=== PATIENT | female | born 1945 | race Caucasian/White ===

== ENCOUNTER 2022-04-23 14:19 | Inpatient (IN) ==
--- NOTE | 2022-04-23 15:50 | Emergency Department Note ---
History of Present Illness General Chief complaint: Fall Stated complaint: FALL/WOUND Time Seen by Provider: 04/23/22 15:32 Source: patient, EMS and RN notes reviewed History of Present Illness Provider complaint: Fall 77-year-old female presents emergency department with fall. Patient reports she has a history of MS and has recurrent falls when trying to transfer to the toilet. Patient states she fell today and became wedged between the toilet and her sink. Patient denies any pain. She denies any fevers. No chest pains or shortness of breath. Home Medications Medication Instructions Recorded Confirmed Type diazepam 5 mg tablet 5 mg PO DAILY 06/20/18 04/23/22 History Lactobacillus acidophilus 10 20,000 mmu cells PO DAILY 04/23/22 04/23/22 History billion cell capsule (Probiotic) diazepam 2 mg tablet 2 mg PO DAILY 04/23/22 04/23/22 History phenazopyridine 95 mg tablet 95 mg PO DIRECTED PRN 04/23/22 04/23/22 History OCCASIONALLY, WHEN NEEDED Allergies Allergy/AdvReac Type Severity Reaction Status Date / Time mushroom Allergy Severe Swelling Verified 04/23/22 17:41 of Lip/Tongue/Throat Sulfa (Sulfonamide Allergy Severe ALL OVER Verified 04/23/22 17:41 Antibiotics) BODY SWELLING naproxen Allergy Unknown Unknown Verified 04/23/22 17:41 Past Med/Surg History Medical History (Updated 04/23/22 @ 23:24 by Harjit Zepeda) HTN (hypertension) Multiple sclerosis Obesity Rotator cuff arthropathy of right shoulder Surgical History History of cataract surgery left cataract sx received 4mg versed and 100 fentanyl without apparent complications. History of tonsillectomy Family History Other Family history non-contributory Social History Smoking Status: Former smoker Second Hand Exposure: No; Hx Alcohol Use: Yes Alcohol type: beer Hx Substance Use: Yes Last Used Substance: Unknown Preferred Language: Khmer Communication Ability: Effective Visual Impairment: Partially Limited Performance Test Engineer Required: No Beliefs That Will Affect Care: None marital status: Current Living Situation: Spouse How many Children do You have: 2 Feels Safe at Home: Yes Assistive Devices: Wheelchair Review of Systems A total of 10 systems reviewed and were otherwise negative Physical Exam Vital Signs Vital Signs - 24 hr 04/23/22 14:59 04/23/22 14:59 04/23/22 16:00 Temperature 36.2 C L Temperature Source Oral Pulse Rate 78 Pulse Rate [Apical] 75 Pulse Rhythm Regular Pulse Rhythm [Apical] Regular Pulse Strength Normal Pulse Strength [Apical] Normal Respiratory Rate 17 15 Respiratory Effort / Characteristics Non-Labored Non-Labored Respiratory Depth Normal Normal Respiratory Pattern Regular Regular Blood Pressure 135/73 Blood Pressure [Right Arm] 135/73 Blood Pressure Mean 93 Blood Pressure Mean [Right Arm] 93 Blood Pressure Position Lying Blood Pressure Position [Right Arm] Lying Pulse Oximetry 95 95 Oxygen Delivery Method Room Air Room Air Room Air Sepsis Recent Fever Within 48 Hours No Sepsis New/Unexplained Change in Mental Status No Sepsis Action Taken by Nursing No Action Required 04/23/22 16:00 04/23/22 18:00 04/23/22 20:00 Temperature Temperature Source Pulse Rate Pulse Rate [Apical] 68 67 69 Pulse Rhythm Pulse Rhythm [Apical] Regular Regular Regular Pulse Strength Pulse Strength [Apical] Normal Normal Normal Respiratory Rate 18 18 18 Respiratory Effort / Characteristics Non-Labored Non-Labored Non-Labored Respiratory Depth Normal Normal Normal Respiratory Pattern Regular Regular Regular Blood Pressure Blood Pressure [Right Arm] 137/80 156/103 H 161/106 H Blood Pressure Mean Blood Pressure Mean [Right Arm] 99 120 124 Blood Pressure Position Blood Pressure Position [Right Arm] Lying Lying Lying Pulse Oximetry 97 96 97 Oxygen Delivery Method Room Air Room Air Room Air Sepsis Recent Fever Within 48 Hours Sepsis New/Unexplained Change in Mental Status Sepsis Action Taken by Nursing Physical Exam HENT: Exam performed. -Head: Normocephalic and atraumatic. -Right Ear: External ear normal. No mastoid tenderness. -Left Ear: External ear normal. No mastoid tenderness. -Mouth/Throat: The oropharynx is clear and moist. No trismus in the jaw. No dental abscesses or uvula swelling. No oropharyngeal exudate or tonsillar abscesses. EYES: Conjunctivae and EOM are normal. Pupils are equal, round, and reactive to light. Right eye exhibits no discharge. Left eye exhibits no discharge. No scleral icterus. NECK: Normal range of motion. Neck supple. No JVD present. No spinous process tenderness present. CV: Normal rate, regular rhythm, normal heart sounds and intact distal pulses. Palpable radial pulses bue. PULM/CHEST: Effort normal and breath sounds normal. No respiratory distress. No stridor. She has no wheezes. She has no rales. -Chest Wall: She exhibits no tenderness. ABD: The abdomen is soft. Pain on palpation of the left lower quadrant. MUSC: Lymphedema of the bilateral lower extremities. LYMPH: No cervical adenopathy. SKIN: Erythema and warmth over the right lower extremity. There is a large black necrotic appearing decubitus ulcer over the patient's sacrum Course Course 153: The patient was evaluated in room B3. A complete history and physical exam was performed Administered Medications Discontinued Medications Ioversol (Optiray 320 100ml) 95 ml IV ONCE ONE Stop: 04/23/22 17:03 Last Admin: 04/23/22 17:03 Dose: 95 ml Documented By: ILIA Medical Decision Making Laboratory Data Result diagrams: 04/23/22 16:11 04/23/22 16:00 Lab Results 04/23/22 04/23/22 04/23/22 Range/Units 16:00 16:00 16:00 WBC (4.8-10.8) K/ul RBC (3.93-5.22) M/uL Hgb (12.0-16.0) g/dl Hct (34.1-44.9) % MCV (80.0-100.0) fL MCH (25.0-34.0) pg MCHC (32.0-36.0) g/dL RDW Std Deviation (36.4-46.3) fL RDW Coeff of Gregor (11.5-14.5) % Plt Count (130-400) K/uL MPV (9.4-12.3) fL Immature Gran % (Auto) % Neut % (Auto) % Lymph % (Auto) % Mckenzie % (Auto) % Eos % (Auto) % Baso % (Auto) % Neut # (Auto) (1.4-6.5) K/uL Lymph # (Auto) (1.2-3.4) K/uL Mckenzie # (Auto) (0.24-0.82) K/uL Eos # (Auto) (0-0.50) K/uL Baso # (Auto) (0-0.2) K/uL Immature Gran # (Auto) (0.00-0.02) K/uL PT 11.0 (9.0-12.0) Seconds INR 1.0 (0.9-1.1) APTT 27.0 (21.0-31.0) Seconds PTT Ratio 1.0 Sodium 134 L (136-145) mmol/L Potassium 3.9 (3.5-5.1) mmol/L Chloride 97 L (98-107) mmol/L Carbon Dioxide 30 (21-32) mmol/L Anion Gap 7 (3-11) BUN 14 (6-23) mg/dl Creatinine 0.62 (0.6-1.2) mg/dl Est Cr Clr Drug Dosing 81.1 ml/min Est GFR ( Amer) 99.4 ml/min Est GFR (Non-Af Amer) 85.8 ml/min BUN/Creatinine Ratio 22.6 H (10-20) Glucose 97 (70-99(Fasting)) mg/dl Lactate (0.4-2.0) mmol/L Calcium 9.2 (8.5-10.1) mg/dl Magnesium 1.6 L (1.7-2.4) mg/dl Total Bilirubin 1.1 H (0.2-1.0) mg/dl AST 26 (13-39) U/L ALT 15 (7-52) U/L Alkaline Phosphatase 123 H (34-104) U/L Total Protein 6.2 (6.0-8.3) gm/dl Albumin 3.0 L (3.4-5.0) gm/dl Globulin 3.2 (2.5-4.0) gm/dl Albumin/Globulin Ratio 0.9 (0.9-2) Prealbumin 5.7 L (20-40) mg/dl Procalcitonin 0.09 (0-0.5) ng/ml SARS-CoV-2, RNA, NAAT (NEGATIVE) 04/23/22 04/23/22 04/23/22 Range/Units 16:11 16:11 17:15 WBC 12.99 H (4.8-10.8) K/ul RBC 3.96 (3.93-5.22) M/uL Hgb 12.4 (12.0-16.0) g/dl Hct 38.4 (34.1-44.9) % MCV 97.0 (80.0-100.0) fL MCH 31.3 (25.0-34.0) pg MCHC 32.3 (32.0-36.0) g/dL RDW Std Deviation 51.2 H (36.4-46.3) fL RDW Coeff of Gregor 14.3 (11.5-14.5) % Plt Count 337 (130-400) K/uL MPV 8.1 L (9.4-12.3) fL Immature Gran % (Auto) 0.4 % Neut % (Auto) 85.9 % Lymph % (Auto) 4.8 % Mckenzie % (Auto) 8.5 % Eos % (Auto) 0.2 % Baso % (Auto) 0.2 % Neut # (Auto) 11.17 H (1.4-6.5) K/uL Lymph # (Auto) 0.62 L (1.2-3.4) K/uL Mckenzie # (Auto) 1.10 H (0.24-0.82) K/uL Eos # (Auto) 0.03 (0-0.50) K/uL Baso # (Auto) 0.02 (0-0.2) K/uL Immature Gran # (Auto) 0.05 H (0.00-0.02) K/uL PT (9.0-12.0) Seconds INR (0.9-1.1) APTT (21.0-31.0) Seconds PTT Ratio Sodium (136-145) mmol/L Potassium (3.5-5.1) mmol/L Chloride (98-107) mmol/L Carbon Dioxide (21-32) mmol/L Anion Gap (3-11) BUN (6-23) mg/dl Creatinine (0.6-1.2) mg/dl Est Cr Clr Drug Dosing ml/min Est GFR ( Amer) ml/min Est GFR (Non-Af Amer) ml/min BUN/Creatinine Ratio (10-20) Glucose (70-99(Fasting)) mg/dl Lactate 0.9 (0.4-2.0) mmol/L Calcium (8.5-10.1) mg/dl Magnesium (1.7-2.4) mg/dl Total Bilirubin (0.2-1.0) mg/dl AST (13-39) U/L ALT (7-52) U/L Alkaline Phosphatase (34-104) U/L Total Protein (6.0-8.3) gm/dl Albumin (3.4-5.0) gm/dl Globulin (2.5-4.0) gm/dl Albumin/Globulin Ratio (0.9-2) Prealbumin (20-40) mg/dl Procalcitonin (0-0.5) ng/ml SARS-CoV-2, RNA, NAAT NEGATIVE (NEGATIVE) Imaging Data Radiologist's Impression: Abdomen/Pelvis CT 04/23/22 15:[address] WITH IV CONTRAST CT DOSE: HISTORY: recurrent falls;large black necrotic decub ulcer sacrum TECHNIQUE: Multiaxial CT images of the abdomen and pelvis were performed following the use of intravenous contrast. A dose lowering technique was utilized adhering to the principles of ALARA. COMPARISON STUDY: None. FINDINGS: The heart is mildly enlarged. There is a trace left pleural effusion. Left basilar linear densities favor subsegmental atelectasis. A 9 mm nodular density abutting the mediastinal border with at the right middle lobe also favors atelectasis or scarring. No pneumoperitoneum. No pneumatosis. Degenerative changes within the bilateral hips. No fractures within the visualized osseous structures. No destructive/erosive changes within the sacrum to suggest an osteomyelitis. Tiny fat-containing umbilical hernia. Mild body wall edema. Subcutaneous fat stranding, skin thickening, and a few small foci of subcutaneous gas within the left posterior gluteal region. No loculated fluid collections to suggest an abscess. This favors a cellulitis. The punctate foci of subcutaneous gas raise the possibility of a gas-forming organism. The liver, gallbladder, pancreas, spleen, and adrenal glands are within normal limits. There are few punctate calcified granulomas within the liver and spleen. Subcentimeter retroperitoneal lymph nodes do not meet CT criteria for pathologic involvement. No hydronephrosis. Normal caliber abdominal aorta. Moderate bladder wall thickening. Trace pelvic free fluid. There is a 5.8 cm left ovarian/adnexal cyst. There are suggest a meningeal device. There is a 4.3 x 1.8 cm calcified density within the vagina. This could represent an old calcified tampon or foreign body. Small calcified uterine fibroids are noted. Colonic diverticulosis. No evidence for acute diverticulitis. Normal appendix. A few prominent gas-filled loops of small bowel within the lower abdomen. There appears be a short segment of thickened loop of small bowel within the left l ower quadrant best seen on image 354. Distal to this the small bowel loops are decompressed. Therefore, this could be a transition point for a partial small bowel obstruction. IMPRESSION: 1. Subcutaneous fat stranding, skin thickening, and a few small foci of subcutaneous gas within the left posterior gluteal region. No loculated fluid collections to suggest an abscess. This favors a cellulitis. The punctate foci of subcutaneous gas raise the possibility of a gas-forming organism. 2. There is a short segment of thickened small bowel within the left lower quadrant as described above consistent with a nonspecific enteritis. This favors an infectious or inflammatory process. Proximal to this the small bowel is borderline distended and filled with gas and fluid. Therefore, likely represents a transition point for a partial small bowel obstruction 3. There appears to be an intrauterine device. There is also a 4.3 x 1.8 cm calcified density within the vagina. This could represent an old calcified tampon or foreign body. Pelvic examination recommended for removal of these structures. 4. Trace pelvic free fluid. 5. No destructive changes to suggest an osteomyelitis. 6. Trace left pleural effusions. 7. A 5.8 cm left ovarian cyst. This is considered pathologic in a postmenopausal female. Gynecologic consultation recommended. ACT 112: Negative or not required by law. Electronically signed by: Leobardo Estevez M.D. 04/23/2022 5:38 PM Chest X-Ray 04/23/22 15:43 XR chest 1V portable HISTORY: SEPSIS COMPARISON: Chest 09/16/2018. FINDINGS: The cardiac silhouette remains mildly enlarged. There is chronic blunting of the left lateral costophrenic sulcus. No pneumothorax. No pleural effusions. The dominant focal lung consolidations to suggest pneumonia. No evidence for pulmonary edema. Calcified left hilar/AP window lymph nodes are again noted. IMPRESSION: No significant change compared to the prior study. No acute process. Stable blunting of the left lateral costophrenic sulcus. ACT 112: Negative or not required by law. Electronically signed by: Leobardo Estevez M.D. 04/23/2022 4:[address] 04/23/22 15:[address] DOSE: 1905.12 mGy.cm HISTORY: recurrent falls TECHNIQUE: Multiaxial CT images of the cervical spine were performed and reformatted in the sagittal and coronal plane without the use of contrast. A dose lowering technique was utilized adhering to the principles of ALARA. COMPARISON: None. FINDINGS: No fractures. There is 2 mm of anterolisthesis of C4 on C5. This is likely due to long-standing degenerative change. The bilateral C2-C4 facets are fused. Severe disc space narrowing from C4 through C7. Prevertebral soft tissues and the C1-C2 interval are intact. No pneumothorax. IMPRESSION: No fractures within the cervical spine. ACT 112: Negative or not required by law. Electronically signed by: Leobardo Estevez M.D. 04/23/2022 5:[address] 04/23/22 15:[address] DOSE: HISTORY: recurrent falls TECHNIQUE: Multiaxial CT images of the head were performed without the use of intravenous contrast. Automated exposure control was utilized for this study. A dose lowering technique was utilized adhering to the principles of ALARA. Comparison: None. Findings: The paranasal sinuses and mastoid air cells are clear. The calvarium and skull base are intact. There is no mass, hematoma, midline shift, acute infarct. White matter hypodensity is nonspecific but suggestive of microvascular ischemic change. The ventricles and sulci demonstrate mild age-related involutional changes. Impression: No acute intracranial abnormality. Atrophy and microvascular ischemic changes. ACT 112: Negative or not required by law. Electronically signed by: Leobardo Estevez M.D. 04/23/2022 5:19 PM [facility] Narrative Cardiac monitoring: An order was placed for continuous cardiac monitoring. The monitor shows a rate of 70 with sinus rhythm Vital signs stable. Labs show mild leukocytosis of 12.9. CT imaging shows that the patient has subcutaneous fat stranding and a few small foci of subcutaneous gas within the left posterior gluteal region with no loculated fluid collections to suggest an abscess fever and cellulitis. Punctate foci of gas raise the possibility of gas-forming organism. There is a short segment of thickened bowel in the left lower quadrant proximal to this there is a transition point representing small bowel obstruction. Patient's lactic acid is within normal limits. It is thought that the patient's sacral wound has been there for quite some time. Discussed the case with general surgery Dr. Reina who agrees to be on consult and admit to medicine. CT imaging also makes note of a 4.3 x 1.8 cm density in the vagina which that could be a old calcified tampon. This is not thought to be a tampon as patient states she does not use them and the patient had a purewick catheter placed in the emergency department by nursing prior to CT scan. Case management has informed me that the office of aging has become involved with the patient's care and they believe that the patient's care is regretfully a combination of self-neglect and the patient's not being able to care for her. [facility] Lisa notified. Impression & Plan SBO (small bowel obstruction), Pressure ulcer, sacrum, Ovarian cyst, Multiple sclerosis Discharge Plan Visit Data Chief Complaint: Fall Stated Complaint: FALL/WOUND ED Provider: Harjit Zepeda Discharge Problem: SBO (small bowel obstruction), Pressure ulcer, sacrum, Ovarian cyst, Multiple sclerosis Patient Disposition: Admitted As Inpatient Discharge Instructions Interventions: ED Discharge Assessment Last Done: 04/23/22 22:24
--- NOTE | 2022-04-23 16:16 | XRay Report ---
XR chest 1V portable HISTORY: SEPSIS COMPARISON: Chest 09/16/2018. FINDINGS: The cardiac silhouette remains mildly enlarged. There is chronic blunting of the left later al costophrenic sulcus. No pneumothorax. No pleural effusions. The dominant focal lung consolidations to suggest pneumonia. No evidence for pulmonary edema. Calcified left hilar/AP window lymph nodes ar e again noted. IMPRESSION: No significant change compared to the prior study. No acute process. Stable blunting of the left late ral costophrenic sulcus. ACT 112: Negative or not required by law. Electronically signed by: Leobardo Estevez M.D. 04/23/2022 4:14 PM
[2022-04-23 16:21] LABS: Basophils # (auto) 0.02 K/uL (0-0.2); Basophils % (auto) 0.2 %; Eosinophils # (auto) 0.03 K/uL (0-0.50); Eosinophils % (auto) 0.2 %; Hematocrit (blood only) 38.4 % (34.1-44.9); Hemoglobin 12.4 g/dl (12.0-16.0); Immature Granulocytes # (auto) 0.05 K/uL (0.00-0.02); Immature Granulocytes % (auto) 0.4 %; Lymphocytes # (auto) 0.62 K/uL (1.2-3.4); Lymphocytes % (auto) 4.8 %; Mean Corpuscular Hemoglobin 31.3 pg (25.0-34.0); Mean Corpuscular Hgb Conc 32.3 g/dL (32.0-36.0); Mean Platelet Volume 8.1 fL (9.4-12.3); Monocytes % (auto) 8.5 %; Neutrophils # (auto) 11.17 K/uL (1.4-6.5); Neutrophils % (auto) 85.9 %; Platelet Count 337 K/uL (130-400); RDW Coefficient of Variation 14.3 % (11.5-14.5); RDW Standard Deviation 51.2 fL (36.4-46.3); Red Blood Count 3.96 M/uL (3.93-5.22); White Blood Count 12.99 K/ul (4.8-10.8)
[2022-04-23 16:32] LABS: Albumin Globulin Ratio 0.9 (0.9-2); BUN Creatinine Ratio 22.6 (10-20); Bilirubin,Total 1.1 mg/dl (0.2-1.0); Calcium 9.2 mg/dl (8.5-10.1); Creatinine Clr Calc Pharmacy 81.1 ml/min; Est GFR (African American) 99.4 ml/min; Est GFR (Non-African American) 85.8 ml/min; Globulin 3.2 gm/dl (2.5-4.0); Magnesium 1.6 mg/dl (1.7-2.4); Potassium 3.9 mmol/L (3.5-5.1); Total Protein 6.2 gm/dl (6.0-8.3)
[2022-04-23] MEDS ORDERED: OPTIRAY 320 100ml IV ONE (17:02)
--- NOTE | 2022-04-23 17:22 | CT Scan Report ---
HEAD CT NONCONTRAST CT DOSE: HISTORY: recurrent falls TECHNIQUE: Multiaxial CT images of the head were performed without the use of intravenous contrast. A utomated exposure control was utilized for this study. A dose lowering technique was utilized adheri ng to the principles of ALARA. Comparison: None. Findings: The paranasal sinuses and mastoid air cells are clear. The calvarium and skull base are int act. There is no mass, hematoma, midline shift, acute infarct. White matter hypodensity is nonspecifi c but suggestive of microvascular ischemic change. The ventricles and sulci demonstrate mild age-rela belle involutional changes. Impression: No acute intracranial abnormality. Atrophy and microvascular ischemic changes. ACT 112: Negative or not required by law. Electronically signed by: Leobardo Estevez M.D. 04/23/2022 5:19 PM
--- NOTE | 2022-04-23 17:27 | CT Scan Report ---
CERVICAL SPINE CT CT DOSE: 1905.12 mGy.cm HISTORY: recurrent falls TECHNIQUE: Multiaxial CT images of the cervical spine were performed and reformatted in the sagittal and coronal plane without the use of contrast. A dose lowering technique was utilized adhering to th e principles of ALARA. COMPARISON: None. FINDINGS: No fractures. There is 2 mm of anterolisthesis of C4 on C5. This is likely due to long-jones ding degenerative change. The bilateral C2-C4 facets are fused. Severe disc space narrowing from C4 t hrough C7. Prevertebral soft tissues and the C1-C2 interval are intact. No pneumothorax. IMPRESSION: No fractures within the cervical spine. ACT 112: Negative or not required by law. Electronically signed by: Leobardo Estevez M.D. 04/23/2022 5:25 PM
--- NOTE | 2022-04-23 17:40 | CT Scan Report ---
ABDOMEN AND PELVIS CT WITH IV CONTRAST CT DOSE: HISTORY: recurrent falls;large black necrotic decub ulcer sacrum TECHNIQUE: Multiaxial CT images of the abdomen and pelvis were performed following the use of intrave nous contrast. A dose lowering technique was utilized adhering to the principles of ALARA. COMPARISON STUDY: None. FINDINGS: The heart is mildly enlarged. There is a trace left pleural effusion. Left basilar linear d ensities favor subsegmental atelectasis. A 9 mm nodular density abutting the mediastinal border with at the right middle lobe also favors atelectasis or scarring. No pneumoperitoneum. No pneumatosis. De generative changes within the bilateral hips. No fractures within the visualized osseous structures. No destructive/erosive changes within the sacrum to suggest an osteomyelitis. Tiny fat-containing umb ilical hernia. Mild body wall edema. Subcutaneous fat stranding, skin thickening, and a few small foc i of subcutaneous gas within the left posterior gluteal region. No loculated fluid collections to sug gest an abscess. This favors a cellulitis. The punctate foci of subcutaneous gas raise the possibilit y of a gas-forming organism. The liver, gallbladder, pancreas, spleen, and adrenal glands are within normal limits. There are few punctate calcified granulomas within the liver and spleen. Subcentimeter retroperitoneal lymph nodes do not meet CT criteria for pathologic involvement. No hydronephrosis. N ormal caliber abdominal aorta. Moderate bladder wall thickening. Trace pelvic free fluid. There is a 5.8 cm left ovarian/adnexal cyst. There are suggest a meningeal device. There is a 4.3 x 1.8 cm calci fied density within the vagina. This could represent an old calcified tampon or foreign body. Small c alcified uterine fibroids are noted. Colonic diverticulosis. No evidence for acute diverticulitis. No rmal appendix. A few prominent gas-filled loops of small bowel within the lower abdomen. There appear s be a short segment of thickened loop of small bowel within the left lower quadrant best seen on jaja ge [id number]. Distal to this the small bowel loops are decompressed. Therefore, this could be a transition point for a partial small bowel obstruction. IMPRESSION: 1. Subcutaneous fat stranding, skin thickening, and a few small foci of subcutaneous gas within the l eft posterior gluteal region. No loculated fluid collections to suggest an abscess. This favors a vanda lulitis. The punctate foci of subcutaneous gas raise the possibility of a gas-forming organism. 2. There is a short segment of thickened small bowel within the left lower quadrant as described abov e consistent with a nonspecific enteritis. This favors an infectious or inflammatory process. Proxima l to this the small bowel is borderline distended and filled with gas and fluid. Therefore, likely re presents a transition point for a partial small bowel obstruction 3. There appears to be an intrauterine device. There is also a 4.3 x 1.8 cm calcified density within the vagina. This could represent an old calcified tampon or foreign body. Pelvic examination recommen ded for removal of these structures. 4. Trace pelvic free fluid. 5. No destructive changes to suggest an osteomyelitis. 6. Trace left pleural effusions. 7. A 5.8 cm left ovarian cyst. This is considered pathologic in a postmenopausal female. Gynecologic consultation recommended. ACT 112: Negative or not required by law. Electronically signed by: Leobardo Estevez M.D. 04/23/2022 5:38 PM
--- NOTE | 2022-04-23 20:29 | History & Physical Report ---
Date of Service April 23, 2022 Assessment & Plan (1) Decubitus ulcer of sacral area: Plan: - Large eschar seen over sacral area. WBC 13, lactate within normal limits, with hemodynamic stability. Patient with pain reported over the past week, prior neurology appointment. She is immobile due to MS, bed and wheelchair bound - CT a/p: Subcutaneous fat stranding, skin thickening, and a few small foci of subcutaneous gas within the left posterior gluteal region. No loculated fluid collections to suggest an abscess. This favors a cellulitis. The punctate foci of subcutaneous gas raise the possibility of a gas-forming organism. - Empirically placed on Zosyn and vancomycin. - General surgery and plastic surgery consult, appreciate their recommendations. - Office of aging contacted. - Blood cultures ordered, pending. - Wound care consulted. - Specialty bed ordered. (2) SBO (small bowel obstruction): Plan: - Partial, with evidence of enterocolitis. - N.p.o. with IVF for now, surgery consulted as above. - Patient with vomiting 2 days ago, however without nausea or vomiting since. No need for NGT currently. (3) Multiple sclerosis: Plan: - Chronic, no acute needs. - Diazepam 7 mg daily for spasms. - Wheelchair-bound at baseline. (4) Hypomagnesemia: Plan: - 1.6, replete with 2 g and recheck with a.m. labs. (5) Tinea pedis: Plan: - Ketoconazole ordered to be applied to b/l feet. - Monitor LFTs. (6) HTN (hypertension): Plan: - Documented history of, but on no home medications. - She is hypertensive here, SBP [id number]. She remains hypertensive, may benefit from scheduled medication. (7) Ovarian cyst: Plan: - 5.8 cm left ovarian cyst noted on CT of her abdomen pelvis, considered pathologic given her age. Per patient, this is a new finding. - Recommend outpatient follow-up with director pharmaceutical for further evaluation. Plan - Admitted to med/tele - SCDs and Lovenox for VTE ppx. - Full Code. History of Present Illness Chief Complaint: Mechanical fall during transfer to wheelchair this evening Primary Care Provider: Alf Velázquez MD Sia Grissom is a 77-year-old female with a past medical history significant for MS who presents today from home after a fall. Patient is wheelchair-bound at baseline, she was transferring to her commode today when she fell and became wedged between her bed and sink. Her called EMS for transportation to the ED for evaluation. Here, she is without any complaints or pain, however on initial exam she was found to have a deep wound to her left buttocks. She had pain on her buttocks for the past week, but denies noticing any open wound. She is also noted to have a partial SBO. Patient states she has been feeling perfectly well at home, however at bedside does report that she had 2 days of frequent vomiting on empty stomach that has now subsided. Otherwise, has been afebrile, no chest pain, shortness of breath, cough, abdominal pain, nausea, diarrhea. Patient states she typically does not move her bowels very often, last BM 4-5 days ago, which she says is normal for her. In ED, she presented hypertensive 161/26, otherwise vital signs within normal limits, SpO2 > 95% on room air. Labs significant for WBC 12.99, magnesium 1.6, T bili 1.1. CT A/P showed fat stranding and skin thickening with few small subcutaneous gas within the left posterior as well without evidence of osteomyelitis. There is also a short segment of thickened small bowel in the left LLQ consistent with nonspecific enteritis with borderline small bowel distention possibly representing a transition point for partial SBO. Incidental 5.8 cm left ovarian cyst was visualized. CT A/P notes a calcified density within the vagina possibly calcified tampon or foreign body, however its been confirmed this is being mistaken for a purewhick Catheter placed in ED. Head and C-spine CT performed due to fall, without evidence of acute process, fracture, subluxation. CXR showed no acute process, stable blunting of the left lateral costophrenic sulcus. Allergies Allergy/AdvReac Type Severity Reaction Status Date / Time mushroom Allergy Severe Swelling Verified 04/23/22 17:41 of Lip/Tongue/Throat Sulfa (Sulfonamide Allergy Severe ALL OVER Verified 04/23/22 17:41 Antibiotics) BODY SWELLING naproxen Allergy Unknown Unknown Verified 04/23/22 17:41 Home Medications Medication Instructions Recorded Confirmed Type diazepam 5 mg tablet 5 mg PO DAILY 06/20/18 04/23/22 History Lactobacillus acidophilus 10 20,000 mmu cells PO DAILY 04/23/22 04/23/22 History billion cell capsule (Probiotic) diazepam 2 mg tablet 2 mg PO DAILY 04/23/22 04/23/22 History phenazopyridine 95 mg tablet 95 mg PO DIRECTED PRN 04/23/22 04/23/22 History OCCASIONALLY, WHEN NEEDED Past Med/Surg History Medical History (Updated 04/23/22 @ 23:24 by Harjit Zepeda) HTN (hypertension) Multiple sclerosis Obesity Rotator cuff arthropathy of right shoulder Surgical History History of cataract surgery left cataract sx received 4mg versed and 100 fentanyl without apparent complications. History of tonsillectomy Family History Other Family history non-contributory Social History Smoking Status: Former smoker Second Hand Exposure: No; Hx Alcohol Use: Yes Alcohol type: beer Hx Substance Use: No Preferred Language: Bulgarian Communication Ability: Effective Visual Impairment: Partially Limited Medical Records Coder Required: No Beliefs That Will Affect Care: None marital status: Current Living Situation: Spouse How many Children do You have: 2 Other Information That Helps Us Care for You: No Feels Safe at Home: Yes Safety Concerns: Feels Safe At This Time Assistive Devices: Hospital Bed and Scooter/Electric Scooter Review of Systems Review of Systems: Constitutional: No fever/chills, weakness, fatigue, myalgias, anorexia, night sweats Eyes: No diplopia, no worsening or blurred vision ENT: normal hearing, no trouble swallowing Respiratory: No cough, sputum, dyspnea at rest or on exertion Cardiovascular: No chest pain, tightness or palpitations Abdomen: No pain, nausea, vomiting, diarrhea or constipation : Denies dysuria, hematuria, increased urgency/frequency, urinary retention Musculoskeletal: No joint pain, calf pain, swelling Neurologic: No weakness, numbness/tingling, or balance problems Psychiatric: No anxiety or depression Skin: No rash or itch Physical Exam Physical Exam: General: awake, alert, no apparent distress Head: Normocephalic, atraumatic ENT: PERRL, EOMI, no pharyngeal exudate, mucous membranes moist Chest: Clear to auscultation, on room air, no adventitious breath sounds Cardiac: Regular rate and rhythm, no murmur, no JVD, normal peripheral pulses, good capillary refill Abdominal: NABS x 4 quadrants, soft, nontender to palpation, no rebound, guarding or tenderness Extremities: Normal inspection, no peripheral edema or erythema, calfs nontender to palpation Psych: Normal mood and affect Neuro: AAO x 3, strength intact bilaterally and rated 5/5, no motor deficits, speech is clear, no peripheral sensory deficits Skin: Large, black necrotic appearing decubitus ulcer on patient's sacrum, as well as lower extremity erythema with dressings in place. Results & Data Results & Data ([facility]) Vital Signs (Past 12 Hours) Vital Signs Temp Pulse Pulse Resp BP BP Pulse Ox 04/23/22 20:00 69 18 161/106 H 97 04/23/22 18:00 67 18 156/103 H 96 04/23/22 16:00 68 18 137/80 97 04/23/22 16:00 04/23/22 14:59 75 15 135/73 95 04/23/22 14:59 36.2 C L 78 17 135/73 95 O2 Del Method 04/23/22 20:00 Room Air 04/23/22 18:00 Room Air 04/23/22 16:00 Room Air 04/23/22 16:00 Room Air 04/23/22 14:59 Room Air 04/23/22 14:59 Room Air Laboratory Results Abnormal lab results 04/23/22 04/23/22 Range/Units 16:00 16:11 WBC 12.99 H (4.8-10.8) K/ul RDW Std Deviation 51.2 H (36.4-46.3) fL MPV 8.1 L (9.4-12.3) fL Neut # (Auto) 11.17 H (1.4-6.5) K/uL Lymph # (Auto) 0.62 L (1.2-3.4) K/uL [place] # (Auto) 1.10 H (0.24-0.82) K/uL Immature Gran # (Auto) 0.05 H (0.00-0.02) K/uL Sodium 134 L (136-145) mmol/L Chloride 97 L (98-107) mmol/L BUN/Creatinine Ratio 22.6 H (10-20) Magnesium 1.6 L (1.7-2.4) mg/dl Total Bilirubin 1.1 H (0.2-1.0) mg/dl Alkaline Phosphatase 123 H (34-104) U/L Albumin 3.0 L (3.4-5.0) gm/dl Diagnostic Findings Abdomen/Pelvis CT 04/23/22 15:[address] WITH IV CONTRAST CT DOSE: HISTORY: recurrent falls;large black necrotic decub ulcer sacrum TECHNIQUE: Multiaxial CT images of the abdomen and pelvis were performed following the use of intravenous contrast. A dose lowering technique was utilized adhering to the principles of ALARA. COMPARISON STUDY: None. FINDINGS: The heart is mildly enlarged. There is a trace left pleural effusion. Left basilar linear densities favor subsegmental atelectasis. A 9 mm nodular density abutting the mediastinal border with at the right middle lobe also favors atelectasis or scarring. No pneumoperitoneum. No pneumatosis. Degenerative changes within the bilateral hips. No fractures within the visualized osseous structures. No destructive/erosive changes within the sacrum to suggest an osteomyelitis. Tiny fat-containing umbilical hernia. Mild body wall edema. Subcutaneous fat stranding, skin thickening, and a few small foci of subcutaneous gas within the left posterior gluteal region. No loculated fluid collections to suggest an abscess. This favors a cellulitis. The punctate foci of subcutaneous gas raise the possibility of a gas-forming organism. The liver, gallbladder, pancreas, spleen, and adrenal glands are within normal limits. There are few punctate calcified granulomas within the liver and spleen. Subcentimeter retroperitoneal lymph nodes do not meet CT criteria for pathologic involvement. No hydronephrosis. Normal caliber abdominal aorta. Moderate bladder wall thickening. Trace pelvic free fluid. There is a 5.8 cm left ovarian/adnexal cyst. There are suggest a meningeal device. There is a 4.3 x 1.8 cm calcified density within the vagina. This could represent an old calcified tampon or foreign body. Small calcified uterine fibroids are noted. Colonic diverticulosis. No evidence for acute diverticulitis. Normal appendix. A few prominent gas-filled loops of small bowel within the lower abdomen. There appears be a short segment of thickened loop of small bowel within the left lower quadrant best seen on image 354. Distal to this the small bowel loops are decompressed. Therefore, this could be a transition point for a partial small bowel obstruction. IMPRESSION: 1. Subcutaneous fat stranding, skin thickening, and a few small foci of subcutaneous gas within the left posterior gluteal region. No loculated fluid collections to suggest an abscess. This favors a cellulitis. The punctate foci of subcutaneous gas raise the possibility of a gas-forming organism. 2. There is a short segment of thickened small bowel within the left lower quadrant as described above consistent with a nonspecific enteritis. This favors an infectious or inflammatory process. Proximal to this the small bowel is borderline distended and filled with gas and fluid. Therefore, likely represents a transition point for a partial small bowel obstruction 3. There appears to be an intrauterine device. There is also a 4.3 x 1.8 cm calcified density within the vagina. This could represent an old calcified tampon or foreign body. Pelvic examination recommended for removal of these structures. 4. Trace pelvic free fluid. 5. No destructive changes to suggest an osteomyelitis. 6. Trace left pleural effusions. 7. A 5.8 cm left ovarian cyst. This is considered pathologic in a postmenopausal female. Gynecologic consultation recommended. ACT 112: Negative or not required by law. Electronically signed by: Leobardo Estevez M.D. 04/23/2022 5:38 PM Chest X-Ray 04/23/22 15:43 XR chest 1V portable HISTORY: SEPSIS COMPARISON: Chest 09/16/2018. FINDINGS: The cardiac silhouette remains mildly enlarged. There is chronic blunting of the left lateral costophrenic sulcus. No pneumothorax. No pleural effusions. The dominant focal lung consolidations to suggest pneumonia. No evidence for pulmonary edema. Calcified left hilar/AP window lymph nodes are again noted. IMPRESSION: No significant change compared to the prior study. No acute process. Stable blunting of the left lateral costophrenic sulcus. ACT 112: Negative or not required by law. Electronically signed by: Leobardo Estevez M.D. 04/23/2022 4:[address] 04/23/22 15:[address] DOSE: 1905.12 mGy.cm HISTORY: recurrent falls TECHNIQUE: Multiaxial CT images of the cervical spine were performed and reformatted in the sagittal and coronal plane without the use of contrast. A dose lowering technique was utilized adhering to the principles of ALARA. COMPARISON: None. FINDINGS: No fractures. There is 2 mm of anterolisthesis of C4 on C5. This is likely due to long-standing degenerative change. The bilateral C2-C4 facets are fused. Severe disc space narrowing from C4 through C7. Prevertebral soft tissues and the C1-C2 interval are intact. No pneumothorax. IMPRESSION: No fractures within the cervical spine. ACT 112: Negative or not required by law. Electronically signed by: Leobardo Estevez M.D. 04/23/2022 5:[address] 04/23/22 15:[address] DOSE: HISTORY: recurrent falls TECHNIQUE: Multiaxial CT images of the head were performed without the use of intravenous contrast. Automated exposure control was utilized for this study. A dose lowering technique was utilized adhering to the principles of ALARA. Comparison: None. Findings: The paranasal sinuses and mastoid air cells are clear. The calvarium and skull base are intact. There is no mass, hematoma, midline shift, acute infarct. White matter hypodensity is nonspecific but suggestive of microvascular ischemic change. The ventricles and sulci demonstrate mild age-related involutional changes. Impression: No acute intracranial abnormality. Atrophy and microvascular ischemic changes. ACT 112: Negative or not required by law. Electronically signed by: Leobardo Estevez M.D. 04/23/2022 5:19 PM ECG Additional Comments: Sinus rhythm with occasional Premature ventricular complexes Nonspecific ST and T wave abnormality Abnormal ECG When compared with ECG of 16-SEP-2018 19:13, Pr emature ventricular complexes are now Present QT has lengthened Code Status & VTE Plan Code Status Full Code. Supervising Physician Co-Signing Physician Notes Attending addendum: I have physically seen this patient, have supervised the EMELYN's activities, and agree with the H&P unless as otherwise noted. Assessment and Plan: Decubitus ulcer over buttock area- Gas within the left posterior gluteal region noted on CT Large area of eschar Placed. Clinic vancomycin IV and Zosyn IV Consult Dr. Yeinfer Lan, plastic reconstructive surgery Office of aging following patient Follow blood cultures, wound cultures and sensitivities Consult wound care for local care [place] bed Small bowel obstruction- N.p.o. Antibiotics as noted above IV fluids If not able to eat over the next 2 days, and may require some peripheral nutrition Multiple sclerosis- Continue diazepam p.o. Ativan IV as needed for spasms Hypomagnesemia- 1.6 upon admission replace IV and recheck laboratories in a.m. Remaining orders and notations as noted PG Care Time/CCT Total # of Minutes Spent Total Time Spent with Patient: Total time spent is greater than 50% in coordination of care (as documented) at patient's floor/unit and/or counseling patient: Coding Level of Care Code 27227 Initial Inpt Care Lvl 3 Diagnoses Decubitus ulcer of sacral area L89.159 SBO (small bowel obstruction) K56.609 Multiple sclerosis G35 Hypomagnesemia E83.42 Tinea pedis B35.3 HTN (hypertension) I10 Ovarian cyst N83.209
[2022-04-23] MEDS ORDERED: VANCOMYCIN CONSULT ACTIVE PRN ×2 (20:50→22:41)
[2022-04-23] MEDS ORDERED: PIPERACILLIN/TAZOBACTAM 4.5 GM in DEXTROSE 5% 100 ML IV ONE (21:00)
[2022-04-23] MEDS ORDERED: VANCOMYCIN HCL 1,750 MG in SODIUM CHLORIDE 0.9% 500 ML IV ONE (21:15)
[2022-04-23 21:30] LABS: Prealbumin 5.7 mg/dl (20-40)
[2022-04-23] MEDS ORDERED: PIPERACILLIN/TAZOBACTAM 3.375 GM in DEXTROSE 5% 100 ML IV SCH (22:41)
[2022-04-23] MEDS ORDERED: KETOCONAZOLE 2% CR 15 GM TUBE EXT PRN (22:41)
[2022-04-23] MEDS: LACTATED RINGER'S 1,000 ML IV SCH (23:57)
[2022-04-23] MEDS: MAGNESIUM SULFATE / D5W 1 GM/100 ML BAG IV SCH (23:57)
[2022-04-24] MEDS: ENOXAPARIN INJ 40 MG/0.4 ML SYR SQ SCH ×2 (00:35→09:32)
[2022-04-24] MEDS: MAGNESIUM SULFATE / D5W 1 GM/100 ML BAG IV SCH (01:32)
[2022-04-24 02:05] LABS: Appearance Urine Cloudy (Clear); Bacteria Urine Automated 4+ (Negative); Bilirubin Urine Negative (Negative); Blood Urine 1+ (Negative); Color Urine Dark Yellow; Epithelial Cell Urine Auto >30 /lpf (0-5); Glucose Urine UA Negative (Negative); Ketones Urine Negative (Negative); Leukocyte Esterase Urine 2+ (Negative); Nitrite Urine Positive (Negative); Protein Urine Trace (Negative); RBC Urine Automated 0-4 /hpf (0-4); Specific Gravity Urine > 1.045 (1.000-1.030); Urobilinogen Urine Negative (Negative); WBC Urine Automated >30 /hpf (0-5)
[2022-04-24] MEDS: VANCOMYCIN HCL 1,250 MG in SODIUM CHLORIDE 0.9% 250 ML IV SCH ×2 (05:36→17:38)
[2022-04-24] MEDS: PIPERACILLIN/TAZOBACTAM 3.375 GM in DEXTROSE 5% 100 ML IV SCH ×3 (05:36→22:23)
[2022-04-24 06:30] LABS: Basophils # (auto) 0.03 K/uL (0-0.2); Basophils % (auto) 0.4 %; Eosinophils # (auto) 0.11 K/uL (0-0.50); Eosinophils % (auto) 1.3 %; Hematocrit (blood only) 30.8 % (34.1-44.9); Hemoglobin 10.1 g/dl (12.0-16.0); Immature Granulocytes # (auto) 0.04 K/uL (0.00-0.02); Immature Granulocytes % (auto) 0.5 %; Lymphocytes # (auto) 0.81 K/uL (1.2-3.4); Lymphocytes % (auto) 9.6 %; Mean Corpuscular Hemoglobin 31.3 pg (25.0-34.0); Mean Corpuscular Hgb Conc 32.8 g/dL (32.0-36.0); Mean Corpuscular Volume 95.4 fL (80.0-100.0); Mean Platelet Volume 8.2 fL (9.4-12.3); Monocytes # (auto) 0.89 K/uL (0.24-0.82); Monocytes % (auto) 10.5 %; Neutrophils # (auto) 6.56 K/uL (1.4-6.5); Neutrophils % (auto) 77.7 %; Platelet Count 301 K/uL (130-400); RDW Coefficient of Variation 14.1 % (11.5-14.5); RDW Standard Deviation 49.5 fL (36.4-46.3); Red Blood Count 3.23 M/uL (3.93-5.22); White Blood Count 8.44 K/ul (4.8-10.8)
[2022-04-24 06:47] LABS: BUN Creatinine Ratio 20.8 (10-20); Calcium 7.8 mg/dl (8.5-10.1); Creatinine Clr Calc Pharmacy 101.9 ml/min; Est GFR (African American) 108.1 ml/min; Est GFR (Non-African American) 93.3 ml/min; Magnesium 1.9 mg/dl (1.7-2.4); Potassium 3.6 mmol/L (3.5-5.1)
--- NOTE | 2022-04-24 07:52 | Hospitalist Progress Note ---
Date of Service April 24, 2022 Assessment & Plan (1) Decubitus ulcer of sacral area: Plan: - Large eschar seen over sacral area. WBC 13, lactate within normal limits, with hemodynamic stability. Patient with pain reported over the past week. She is immobile due to MS, bed and wheelchair bound - CT a/p: Subcutaneous fat stranding, skin thickening, and a few small foci of subcutaneous gas within the left posterior gluteal region. No loculated fluid collections to suggest an abscess. This favors a cellulitis. The punctate foci of subcutaneous gas raise the possibility of a gas-forming organism. - Empirically placed on Zosyn and vancomycin; Day 2 - Plan for surgical debridement - General surgery and plastic surgery consult, appreciate their recommendations. - Office of aging contacted. - Blood cultures ordered, pending. - Wound care consulted. - Specialty bed ordered. (2) SBO (small bowel obstruction): Plan: - Partial, with evidence of enterocolitis. - Will start on clear liquids - Patient with vomiting 2 days ago, however without nausea or vomiting since. No need for NGT currently. - She is passing gas, last bowel movement was 1 week ago (3) Multiple sclerosis: Plan: - Chronic, no acute needs. - Diazepam 7 mg daily for spasms. - Wheelchair-bound at baseline. (4) Hypomagnesemia: Plan: - 1.6 on admission , replete with 2 g up to 1.9 today (5) Tinea pedis: Plan: - Ketoconazole ordered to be applied to b/l feet. - Monitor LFTs. (6) HTN (hypertension): Plan: - Documented history of, but on no home medications. - She is hypertensive here, SBP [id number]. Improved so far today 130/60s- will continue to monitor. (7) Ovarian cyst: Plan: - 5.8 cm left ovarian cyst noted on CT of her abdomen pelvis, considered pathologic given her age. Per patient, this is a new finding. - Recommend outpatient follow-up with display screen fabricator for further evaluation. Plan - SCDs and Lovenox for VTE ppx. - Full Code. Admission and Anticipated Discharge Date Admission Date: April 23, 2022 Supervising Physician Co-Signing Physician Notes I personally examined the patient and verified all norman points of history and exam, discussed case, and agree with decision making with Dr Ruff Not really having much pain. Is very hungry. Had some flatus. Vitals noted, in general she is awake and alert pleasant no distress. HEENT normocephalic atraumatic mucous membranes moist. Breathing unlabored no accessory muscle use good effort. Abdomen is soft nondistended nontender no masses organomegaly. Neuro shows no focal deficits. Questionable bowel obstruction versus constipationeither way clinically improved nicely. Clear liquid diet advance as tolerated Sacral pressure ulcer and buttocks cellulitis broad abx, surgical input, wound care DVT proph - lovenox otherwise as above Subjective Resting comfortably this morning. Denies any sacral/gluteal pain. She states that she had some mild discomfort in her gluteal region that started about a week ago and she noticed some skin changes at that time. Denies fever, chills. She said she had a few episodes of bilious vomiting about 2 days ago, but has not been nausea since. Not history of abdominal surgeries or prior bowel obstr uctions. Last bowel movement was about a week ago and she states that a times she is incontinent of the bowel. She generally has a bowel movement every 4-5 days. She is passing gas. Denies any nausea or abdominal pain today. Physical Exam Physical Exam: General: awake, alert, no apparent distress Head: Normocephalic, atraumatic Chest: Clear to auscultation,no wheezing, rhonchi, rales Cardiac: Regular rate and rhythm, no murmur Abdominal: NABS x 4 quadrants, soft, nontender to palpation, no rebound, guarding or tenderness Extremities: Chronic LE edema B/L. Psych: Normal mood and affect Neuro: AAO x 3, strength intact bilaterally and rated 5/5, no motor deficits, speech is clear, no peripheral sensory deficits Skin: Large-6cm, black necrotic appearing decubitus ulcer on patient's sacrum. Chronic venous dermitis on LE B/L with dressing covering right lower leg Results & Data Results & Data ([facility]) Vital Signs (Past 12 Hours) Vital Signs Temp Pulse Pulse Pulse Resp BP BP 04/24/22 07:34 36.9 C 72 20 04/24/22 03:05 37.1 C 61 20 128/69 04/23/22 22:30 62 04/23/22 22:26 62 04/23/22 21:30 04/23/22 22:30 36.3 C L 77 18 163/69 H 04/23/22 22:30 04/23/22 22:41 04/23/22 22:18 36.3 C L 77 18 163/69 H 04/23/22 22:18 36.3 C L 77 18 163/69 H 04/23/22 22:24 36.6 C 85 18 141/68 H 04/23/22 20:00 69 18 BP Pulse Ox Pulse Ox O2 Del Method O2 Del Method 04/24/22 07:34 135/64 94 Room Air 04/24/22 03:05 96 Room Air 04/23/22 22:30 04/23/22 22:26 04/23/22 21:30 Room Air 04/23/22 22:30 94 Room Air 04/23/22 22:30 Room Air 04/23/22 22:41 94 Room Air 04/23/22 22:18 94 Room Air 04/23/22 22:18 94 Room Air 04/23/22 22:24 95 Room Air 04/23/22 20:00 161/106 H 97 Room Air Laboratory Results 04/24/22 04/24/22 04/24/22 Range/Units 06:13 06:13 00:45 WBC 8.44 (4.8-10.8) K/ul RBC 3.23 L (3.93-5.22) M/uL Hgb 10.1 L (12.0-16.0) g/dl Hct 30.8 L (34.1-44.9) % MCV 95.4 (80.0-100.0) fL MCH 31.3 (25.0-34.0) pg MCHC 32.8 (32.0-36.0) g/dL RDW Std Deviation 49.5 H (36.4-46.3) fL RDW Coeff of Gregor 14.1 (11.5-14.5) % Plt Count 301 (130-400) K/uL MPV 8.2 L (9.4-12.3) fL Immature Gran % (Auto) 0.5 % Neut % (Auto) 77.7 % Lymph % (Auto) 9.6 % Holt % (Auto) 10.5 % Eos % (Auto) 1.3 % Baso % (Auto) 0.4 % Neut # (Auto) 6.56 H (1.4-6.5) K/uL Lymph # (Auto) 0.81 L (1.2-3.4) K/uL Holt # (Auto) 0.89 H (0.24-0.82) K/uL Eos # (Auto) 0.11 (0-0.50) K/uL Baso # (Auto) 0.03 (0-0.2) K/uL Immature Gran # (Auto) 0.04 H (0.00-0.02) K/uL PT (9.0-12.0) Seconds INR (0.9-1.1) APTT (21.0-31.0) Seconds PTT Ratio Sodium 135 L (136-145) mmol/L Potassium 3.6 (3.5-5.1) mmol/L Chloride 102 (98-107) mmol/L Carbon Dioxide 28 (21-32) mmol/L Anion Gap 5 (3-11) BUN 10 (6-23) mg/dl Creatinine 0.48 L (0.6-1.2) mg/dl Est Cr Clr Drug Dosing 101.9 ml/min Est GFR ( Amer) 108.1 ml/min Est GFR (Non-Af Amer) 93.3 ml/min BUN/Creatinine Ratio 20.8 H (10-20) Glucose 98 (70-99(Fasting)) mg/dl Lactate (0.4-2.0) mmol/L Calcium 7.8 L (8.5-10.1) mg/dl Magnesium 1.9 (1.7-2.4) mg/dl Total Bilirubin (0.2-1.0) mg/dl AST (13-39) U/L ALT (7-52) U/L Alkaline Phosphatase (34-104) U/L Total Protein (6.0-8.3) gm/dl Albumin (3.4-5.0) gm/dl Globulin (2.5-4.0) gm/dl Albumin/Globulin Ratio (0.9-2) Prealbumin (20-40) mg/dl Procalcitonin (0-0.5) ng/ml Urine Color Dark Yellow Urine Appearance Cloudy A (Clear) Urine pH 7.0 (4.5-7.5) Ur Specific [place] > 1.045 H (1.000-1.030) Urine Protein Trace H (Negative) Urine Glucose (UA) Negative (Negative) Urine Ketones Negative (Negative) Urine Blood 1+ H (Negative) Urine Nitrite Positive A (Negative) Urine Bilirubin Negative (Negative) Urine Urobilinogen Negative (Negative) Ur Leukocyte Esterase 2+ H (Negative) Urine WBC (Auto) >30 H (0-5) /hpf Urine RBC (Auto) 0-4 (0-4) /hpf U Hyaline Cast (Auto) 10-30 H (0-5) /lpf U Epithel Cells (Auto) >30 H (0-5) /lpf Urine Bacteria (Auto) 4+ H (Negative) Nasal Screen MRSA (PCR) (Negative) SARS-CoV-2, RNA, NAAT (NEGATIVE) 04/23/22 04/23/22 04/23/22 Range/Units Unknown 17:15 16:11 WBC (4.8-10.8) K/ul RBC (3.93-5.22) M/uL Hgb (12.0-16.0) g/dl Hct (34.1-44.9) % MCV (80.0-100.0) fL MCH (25.0-34.0) pg MCHC (32.0-36.0) g/dL RDW Std Deviation (36.4-46.3) fL RDW Coeff of Gregor (11.5-14.5) % Plt Count (130-400) K/uL MPV (9.4-12.3) fL Immature Gran % (Auto) % Neut % (Auto) % Lymph % (Auto) % Holt % (Auto) % Eos % (Auto) % Baso % (Auto) % Neut # (Auto) (1.4-6.5) K/uL Lymph # (Auto) (1.2-3.4) K/uL Holt # (Auto) (0.24-0.82) K/uL Eos # (Auto) (0-0.50) K/uL Baso # (Auto) (0-0.2) K/uL Immature Gran # (Auto) (0.00-0.02) K/uL PT (9.0-12.0) Seconds INR (0.9-1.1) APTT (21.0-31.0) Seconds PTT Ratio Sodium (136-145) mmol/L Potassium (3.5-5.1) mmol/L Chloride (98-107) mmol/L Carbon Dioxide (21-32) mmol/L Anion Gap (3-11) BUN (6-23) mg/dl Creatinine (0.6-1.2) mg/dl Est Cr Clr Drug Dosing ml/min Est GFR ( Amer) ml/min Est GFR (Non-Af Amer) ml/min BUN/Creatinine Ratio (10-20) Glucose (70-99(Fasting)) mg/dl Lactate 0.9 (0.4-2.0) mmol/L Calcium (8.5-10.1) mg/dl Magnesium (1.7-2.4) mg/dl Total Bilirubin (0.2-1.0) mg/dl AST (13-39) U/L ALT (7-52) U/L Alkaline Phosphatase (34-104) U/L Total Protein (6.0-8.3) gm/dl Albumin (3.4-5.0) gm/dl Globulin (2.5-4.0) gm/dl Albumin/Globulin Ratio (0.9-2) Prealbumin (20-40) mg/dl Procalcitonin (0-0.5) ng/ml Urine Color Urine Appearance (Clear) Urine pH (4.5-7.5) Ur Specific [place] (1.000-1.030) Urine Protein (Negative) Urine Glucose (UA) (Negative) Urine Ketones (Negative) Urine Blood (Negative) Urine Nitrite (Negative) Urine Bilirubin (Negative) Urine Urobilinogen (Negative) Ur Leukocyte Esterase (Negative) Urine WBC (Auto) (0-5) /hpf Urine RBC (Auto) (0-4) /hpf U Hyaline Cast (Auto) (0-5) /lpf U Epithel Cells (Auto) (0-5) /lpf Urine Bacteria (Auto) (Negative) Nasal Screen MRSA (PCR) Negative (Negative) SARS-CoV-2, RNA, NAAT NEGATIVE (NEGATIVE) 04/23/22 04/23/22 04/23/22 Range/Units 16:11 16:00 16:00 WBC 12.99 H (4.8-10.8) K/ul RBC 3.96 (3.93-5.22) M/uL Hgb 12.4 (12.0-16.0) g/dl Hct 38.4 (34.1-44.9) % MCV 97.0 (80.0-100.0) fL MCH 31.3 (25.0-34.0) pg MCHC 32.3 (32.0-36.0) g/dL RDW Std Deviation 51.2 H (36.4-46.3) fL RDW Coeff of Gregor 14.3 (11.5-14.5) % Plt Count 337 (130-400) K/uL MPV 8.1 L (9.4-12.3) fL Immature Gran % (Auto) 0.4 % Neut % (Auto) 85.9 % Lymph % (Auto) 4.8 % Holt % (Auto) 8.5 % Eos % (Auto) 0.2 % Baso % (Auto) 0.2 % Neut # (Auto) 11.17 H (1.4-6.5) K/uL Lymph # (Auto) 0.62 L (1.2-3.4) K/uL Holt # (Auto) 1.10 H (0.24-0.82) K/uL Eos # (Auto) 0.03 (0-0.50) K/uL Baso # (Auto) 0.02 (0-0.2) K/uL Immature Gran # (Auto) 0.05 H (0.00-0.02) K/uL PT 11.0 (9.0-12.0) Seconds INR 1.0 (0.9-1.1) APTT 27.0 (21.0-31.0) Seconds PTT Ratio 1.0 Sodium 134 L (136-145) mmol/L Potassium 3.9 (3.5-5.1) mmol/L Chloride 97 L (98-107) mmol/L Carbon Dioxide 30 (21-32) mmol/L Anion Gap 7 (3-11) BUN 14 (6-23) mg/dl Creatinine 0.62 (0.6-1.2) mg/dl Est Cr Clr Drug Dosing 81.1 ml/min Est GFR ( Amer) 99.4 ml/min Est GFR (Non-Af Amer) 85.8 ml/min BUN/Creatinine Ratio 22.6 H (10-20) Glucose 97 (70-99(Fasting)) mg/dl Lactate (0.4-2.0) mmol/L Calcium 9.2 (8.5-10.1) mg/dl Magnesium 1.6 L (1.7-2.4) mg/dl Total Bilirubin 1.1 H (0.2-1.0) mg/dl AST 26 (13-39) U/L ALT 15 (7-52) U/L Alkaline Phosphatase 123 H (34-104) U/L Total Protein 6.2 (6.0-8.3) gm/dl Albumin 3.0 L (3.4-5.0) gm/dl Globulin 3.2 (2.5-4.0) gm/dl Albumin/Globulin Ratio 0.9 (0.9-2) Prealbumin 5.7 L (20-40) mg/dl Procalcitonin (0-0.5) ng/ml Urine Color Urine Appearance (Clear) Urine pH (4.5-7.5) Ur Specific [place] (1.000-1.030) Urine Protein (Negative) Urine Glucose (UA) (Negative) Urine Ketones (Negative) Urine Blood (Negative) Urine Nitrite (Negative) Urine Bilirubin (Negative) Urine Urobilinogen (Negative) Ur Leukocyte Esterase (Negative) Urine WBC (Auto) (0-5) /hpf Urine RBC (Auto) (0-4) /hpf U Hyaline Cast (Auto) (0-5) /lpf U Epithel Cells (Auto) (0-5) /lpf Urine Bacteria (Auto) (Negative) Nasal Screen MRSA (PCR) (Negative) SARS-CoV-2, RNA, NAAT (NEGATIVE) 04/23/22 Range/Units 16:00 WBC (4.8-10.8) K/ul RBC (3.93-5.22) M/uL Hgb (12.0-16.0) g/dl Hct (34.1-44.9) % MCV (80.0-100.0) fL MCH (25.0-34.0) pg MCHC (32.0-36.0) g/dL RDW Std Deviation (36.4-46.3) fL RDW Coeff of Gregor (11.5-14.5) % Plt Count (130-400) K/uL MPV (9.4-12.3) fL Immature Gran % (Auto) % Neut % (Auto) % Lymph % (Auto) % Holt % (Auto) % Eos % (Auto) % Baso % (Auto) % Neut # (Auto) (1.4-6.5) K/uL Lymph # (Auto) (1.2-3.4) K/uL Holt # (Auto) (0.24-0.82) K/uL Eos # (Auto) (0-0.50) K/uL Baso # (Auto) (0-0.2) K/uL Immature Gran # (Auto) (0.00-0.02) K/uL PT (9.0-12.0) Seconds INR (0.9-1.1) APTT (21.0-31.0) Seconds PTT Ratio Sodium (136-145) mmol/L Potassium (3.5-5.1) mmol/L Chloride (98-107) mmol/L Carbon Dioxide (21-32) mmol/L Anion Gap (3-11) BUN (6-23) mg/dl Creatinine (0.6-1.2) mg/dl Est Cr Clr Drug Dosing ml/min Est GFR ( Amer) ml/min Est GFR (Non-Af Amer) ml/min BUN/Creatinine Ratio (10-20) Glucose (70-99(Fasting)) mg/dl Lactate (0.4-2.0) mmol/L Calcium (8.5-10.1) mg/dl Magnesium (1.7-2.4) mg/dl Total Bilirubin (0.2-1.0) mg/dl AST (13-39) U/L ALT (7-52) U/L Alkaline Phosphatase (34-104) U/L Total Protein (6.0-8.3) gm/dl Albumin (3.4-5.0) gm/dl Globulin (2.5-4.0) gm/dl Albumin/Globulin Ratio (0.9-2) Prealbumin (20-40) mg/dl Procalcitonin 0.09 (0-0.5) ng/ml Urine Color Urine Appearance (Clear) Urine pH (4.5-7.5) Ur Specific [place] (1.000-1.030) Urine Protein (Negative) Urine Glucose (UA) (Negative) Urine Ketones (Negative) Urine Blood (Negative) Urine Nitrite (Negative) Urine Bilirubin (Negative) Urine Urobilinogen (Negative) Ur Leukocyte Esterase (Negative) Urine WBC (Auto) (0-5) /hpf Urine RBC (Auto) (0-4) /hpf U Hyaline Cast (Auto) (0-5) /lpf U Epithel Cells (Auto) (0-5) /lpf Urine Bacteria (Auto) (Negative) Nasal Screen MRSA (PCR) (Negative) SARS-CoV-2, RNA, NAAT (NEGATIVE) (1) Ovarian cyst Laterality: unspecified laterality Qualified Code(s): N83.209 - Unspecified ovarian cyst, unspecified side
[2022-04-24] MEDS: LACTATED RINGER'S 1,000 ML IV SCH (08:36)
--- NOTE | 2022-04-24 09:13 | Electrocardiogram Report ---
Test Reason : Blood Pressure : / mmHG Vent. Rate : 070 BPM Atrial Rate : 070 BPM P-R Int : 146 ms QRS Dur : 080 ms QT Int : 448 ms P-R-T Axes : 046 011 040 degrees QTc Int : 483 ms Poor data quality, interpretation may be adversely affected Sinus rhythm with occasional Premature ventricular complexes Abnormal ECG When compared with ECG of 16-SEP-2018 19:13, Premature ventricular complexes are now Present Confirmed by Daren Bethea ([id number]) on 04/24/2022 9:12:53 AM Referred By: REFERRED SELF Confirmed By:Daren Bethea
[2022-04-24] MEDS: diazePAM 2 MG TABLET PO SCH (09:33)
[2022-04-24] MEDS: diazePAM 5 MG TABLET PO SCH (09:33)
--- NOTE | 2022-04-24 11:17 | Surgery Consultation ---
Date of Consultation April 24, 2022 Assessment & Plan (1) Pressure ulcer, sacrum: full thickness sacral decubitus will need debridement this week History of Present Illness Attending Physician: Dipak Forbes DO History of Present Illness this is a 77-year-old female admitted after a fall with a decubitus sleft sacral ulcer. She has a history of MS and has recurrent falls when trying to transfer to the toilet. Patient denies any pain. She denies any fevers. No chest pains or shortness of breath.She has been seen in wound clinic for other wounds on her feet. Allergies Allergy/AdvReac Type Severity Reaction Status Date / Time mushroom Allergy Severe Swelling Verified 04/23/22 17:41 of Lip/Tongue/Throat Sulfa (Sulfonamide Allergy Severe ALL OVER Verified 04/23/22 17:41 Antibiotics) BODY SWELLING naproxen Allergy Unknown Unknown Verified 04/23/22 17:41 Home Medications Medication Instructions Recorded Confirmed Type diazepam 5 mg tablet 5 mg PO DAILY 06/20/18 04/23/22 History Lactobacillus acidophilus 10 20,000 mmu cells PO DAILY 04/23/22 04/23/22 History billion cell capsule (Probiotic) diazepam 2 mg tablet 2 mg PO DAILY 04/23/22 04/23/22 History phenazopyridine 95 mg tablet 95 mg PO DIRECTED PRN 04/23/22 04/23/22 History OCCASIONALLY, WHEN NEEDED Patient History Medical History (Updated 04/23/22 @ 23:24 by Harjit Zepeda) HTN (hypertension) Multiple sclerosis Obesity Rotator cuff arthropathy of right shoulder Surgical History History of cataract surgery left cataract sx received 4mg versed and 100 fentanyl without apparent complications. History of tonsillectomy Family History Other Family history non-contributory Social History Smoking Status: Former smoker Second Hand Exposure: No; Hx Alcohol Use: Yes Alcohol type: beer Hx Substance Use: No Preferred Language: Syriac Communication Ability: Effective Visual Impairment: Partially Limited Validation Manager Required: No Beliefs That Will Affect Care: None marital status: Current Living Situation: Spouse How many Children do You have: 2 Other Information That Helps Us Care for You: No Feels Safe at Home: Yes Safety Concerns: Feels Safe At This Time Assistive Devices: Wheelchair Review of Systems Constitutional: + weakness; no fever and no chills Eyes: no problem reported Ear, Nose, Mouth, Throat: no problem reported Respiratory: no cough and no dyspnea Cardiovascular: no chest pain Gastrointestinal: no abdominal pain, no nausea, no vomiting and no change in bowel habits Genitourinary: no dysuria Musculoskeletal: no back pain and no neck pain Integumentary: + lesions Neurologic: + generalized weakness Psychiatric: no behavioral changes Physical Exam Constitutional: WD/WN, vitals as above Eyes: PERRL, conjunctivae normal, anicteric sclerae ENMT: external ear and nose normal, oropharynx normal Neck: trachea midline Respiratory: normal respiratory effort, lungs clear to auscultation Cardiovascular: RRR, no murmur, no edema Gastrointestinal (Abdomen): Inspection/Auscultation: abdomen normal to inspection and normal bowel sounds; abdomen not distended Percussion/Palpation: abdomen soft; abdomen nontender Musculoskeletal: Head/Neck/Chest: normocephalic and head atraumatic Skin: + lesion (necrotic right sacral decubitus ulcer) Results & Data ([facility]) Vital Signs (Past 12 Hours) Vital Signs Temp Pulse Resp BP BP Pulse Ox O2 Del Method 04/24/22 10:44 Room Air 04/24/22 07:34 36.9 C 72 20 135/64 94 Room Air 04/24/22 03:05 37.1 C 61 20 128/69 96 Room Air Diagnostic Findings ABDOMEN AND PELVIS CT WITH IV CONTRAST CT DOSE: HISTORY: recurrent falls;large black necrotic decub ulcer sacrum TECHNIQUE: Multiaxial CT images of the abdomen and pelvis were performed following the use of intravenous contrast. A dose lowering technique was utilized adhering to the principles of ALARA. COMPARISON STUDY: None. FINDINGS: The heart is mildly enlarged. There is a trace left pleural effusion. Left basilar linear densities favor subsegmental atelectasis. A 9 mm nodular density abutting the mediastinal border with at the right middle lobe also favors atelectasis or scarring. No pneumoperitoneum. No pneumatosis. Degenerative changes within the bilateral hips. No fractures within the visualized osseous structures. No destructive/erosive changes within the sacrum to suggest an osteomyelitis. Tiny fat-containing umbilical hernia. Mild body wall edema. Subcutaneous fat stranding, skin thickening, and a few small foci of subcutaneous gas within the left posterior gluteal region. No loculated fluid collections to suggest an abscess. This favors a cellulitis. The punctate foci of subcutaneous gas raise the possibility of a gas-forming organism. The liver, gallbladder, pancreas, spleen, and adrenal glands are within normal limits. There are few punctate calcified granulomas within the liver and spleen. Subcentimeter retroperitoneal lymph nodes do not meet CT criteria for pathologic involvement. No hydronephrosis. Normal caliber abdominal aorta. Moderate bladder wall thickening. Trace pelvic free fluid. There is a 5.8 cm left ovarian/adnexal cyst. There are suggest a meningeal device. There is a 4.3 x 1.8 cm calcified density within the vagina. This could represent an old calcified tampon or foreign body. Small calcified uterine fibroids are noted. Colonic diverticulosis. No evidence for acute diverticulitis. Normal appendix. A few prominent gas-filled loops of small bowel within the lower abdomen. There appears be a short segment of thickened loop of small bowel within the left lower quadrant best seen on image [id number]. Distal to this the small bowel loops are decompressed. Therefore, this could be a transition point for a partial small bowel obstruction. IMPRESSION: 1. Subcutaneous fat stranding, skin thickening, and a few small foci of subcutaneous gas within the left posterior gluteal region. No loculated fluid collections to suggest an abscess. This favors a cellulitis. The punctate foci of subcutaneous gas raise the possibility of a gas-forming organism. 2. There is a short segment of thickened small bowel within the left lower quadrant as described above consistent with a nonspecific enteritis. This favors an infectious or inflammatory process. Proximal to this the small bowel is borderline distended and filled with gas and fluid. Therefore, likely represents a transition point for a partial small bowel obstruction 3. There appears to be an intrauterine device. There is also a 4.3 x 1.8 cm calcified density within the vagina. This could represent an old calcified tampon or foreign body. Pelvic examination recommended for removal of these structures. 4. Trace pelvic free fluid. 5. No destructive changes to suggest an osteomyelitis. 6. Trace left pleural effusions. 7. A 5.8 cm left ovarian cyst. This is considered pathologic in a postmenopausal female. Gynecologic consultation recommended. (1) Pressure ulcer, sacrum Pressure injury stage: unspecified pressure injury stage Qualified Code(s): L89.159 - Pressure ulcer of sacral region, unspecified stage
--- NOTE | 2022-04-24 12:24 | Pharmacy Report ---
Pharmacy PK ABX Note - Date of Service April 24, 2022 - Assessment and Plan Assessment 77 year old F receiving VANCOMYCIN + ZOSYN for treatment of sacral decubitus ulcer. Cultures pending Plan Vancomycin * Loading dose: 1750 mg IV x 1 * Maintenance dose: 1250 mg IV every 18 hours * Regimen is predicted to achieve target AUC/JEREMIAH of 400-600 mg/L.hr * Random ordered for 8/8 AM Pharmacy will continue to follow and will adjust dose/frequency as necessary. Thank you. Pharmacy has transitioned to AUC monitoring for vancomycin. AUC/JEREMIAH is the preferred PK/PD target and is associated with decreased risk of nephrotoxicity compared to traditional trough targets.
--- NOTE | 2022-04-24 19:01 | Billing Data ---
Date of Service April 24, 2022 Coding Level of Care Code 64138 Subseq Hosp Care Lvl 3
[2022-04-24] MEDS: ADVANCED PROBIOTIC 1250 MG CAPSULE PO SCH (22:23)
[2022-04-25] MEDS ORDERED: VANCOMYCIN LEVEL ONE (04:44)
[2022-04-25] MEDS: PIPERACILLIN/TAZOBACTAM 3.375 GM in DEXTROSE 5% 100 ML IV SCH ×3 (06:44→21:35)
[2022-04-25 06:53] LABS: Basophils # (auto) 0.03 K/uL (0-0.2); Basophils % (auto) 0.4 %; Eosinophils # (auto) 0.23 K/uL (0-0.50); Eosinophils % (auto) 2.9 %; Hematocrit (blood only) 33.6 % (34.1-44.9); Hemoglobin 10.9 g/dl (12.0-16.0); Immature Granulocytes # (auto) 0.03 K/uL (0.00-0.02); Immature Granulocytes % (auto) 0.4 %; Lymphocytes # (auto) 0.72 K/uL (1.2-3.4); Lymphocytes % (auto) 9.1 %; Mean Corpuscular Hemoglobin 31.2 pg (25.0-34.0); Mean Corpuscular Hgb Conc 32.4 g/dL (32.0-36.0); Mean Corpuscular Volume 96.3 fL (80.0-100.0); Mean Platelet Volume 8.2 fL (9.4-12.3); Monocytes # (auto) 0.81 K/uL (0.24-0.82); Monocytes % (auto) 10.3 %; Neutrophils # (auto) 6.08 K/uL (1.4-6.5); Neutrophils % (auto) 76.9 %; Platelet Count 329 K/uL (130-400); RDW Coefficient of Variation 14.3 % (11.5-14.5); RDW Standard Deviation 50.3 fL (36.4-46.3); Red Blood Count 3.49 M/uL (3.93-5.22)
--- NOTE | 2022-04-25 07:11 | Hospitalist Progress Note ---
Date of Service April 25, 2022 Assessment & Plan (1) Decubitus ulcer of sacral area: Plan: Sia is a 77 year old female with histor of MS a/w immobility, hypertension, morbid obesity, and pressure ulcers of the feet who was admitted 04/23 for a sacral pressure ulcer and small bowel obstruction. - Large upper gluteal pressure ulceration in the left upper gluteal area, surgery to perform debridement 04/26/22 (NPO after midnight) - WBC 7.9, lactate normal, hemodynamically stable - Patient denies pain at the site, only pruritus - Patient chronically immobile / MS - Patient is Day 3 of empiric Vancomycin and Zosyn - Blood cultures NGTD 24 hours - Office of aging contacted, wound care consulted, specialty bed received CT Abdomen Pelvis 04/23: 1. Subcutaneous fat stranding, skin thickening, and a few small foci of subcutaneous gas within the left posterior gluteal region. No loculated fluid collections to suggest an abscess. This favors a cellulitis. The punctate foci of subcutaneous gas raise the possibility of a gas-forming organism. 2. There is a short segment of thickened small bowel within the left lower quadrant as described above consistent with a nonspecific enteritis. This favors an infectious or inflammatory process. Proximal to this the small bowel is borderline distended and filled with gas and fluid. Therefore, likely represents a transition point for a partial small bowel obstruction 3. There appears to be an intrauterine device. There is also a 4.3 x 1.8 cm calcified density within the vagina. This could represent an old calcified tampon or foreign body. Pelvic examination recommended for removal of these structures. 4. Trace pelvic free fluid. 5. No destructive changes to suggest an osteomyelitis. 6. Trace left pleural effusions. 7. A 5.8 cm left ovarian cyst. This is considered pathologic in a postmenopausal female. Gynecologic consultation recommended. (2) SBO (small bowel obstruction): Plan: - CT on admission indicated partial, small bowel obstruction with evidence of enterocolitis. - Patient was advanced to clear liquids 04/24, NPO order placed for after midnight d/t surgery - No nausea or emesis - no indication for NGT at present - Patient is passing gas, last bowel movement > 1 week ago (3) Multiple sclerosis: Plan: - Chronic, stable on current management. - Diazepam 7 mg for spasms. - Patient is bed/wheelchair bound at baseline. - Patient endorses efforts to establish a home health specialist through [employer] (4) Hypomagnesemia: Plan: - Repleted - 1.9 on 04/24, 1.8 on 04/25 - Will monitor (5) Tinea pedis: Plan: - Ketoconazole to be applied to feet bilaterally. - Monitor LFTs. (6) HTN (hypertension): Plan: - Known hx, not currently on medication - Labile while inpatient - Will monitor, possible antihypertensive needed SBP 130s-170s (7) Ovarian cyst: Plan: - New, 5.8 cm left ovarian cyst found via CT, pathologic given her age. - Encouraged outpatient f/u w/ RECREATIONAL LEADER for further evaluation Plan SDVT ppx: SCDs and Lovenox Code Status: Full Diet: NPO after midnight 04/25 Dispo: Telemetry Admission and Anticipated Discharge Date Admission Date: April 23, 2022 Supervising Physician Co-Signing Physician Notes I also saw the patient confirmed norman portions of the history and physical examination. I agree with impression and plan as noted the resident documentation. I also personally discussed the case with the financial reporting consultant. Upon mid afternoon exam, the patient is seen concurrently with the resident and the financial reporting consultant. She has no new complaints. She denies any abdominal pain. She does note both abdominal gurgling and flatus. Exam 165/76, 73, 18, 37.1, 94% room air Heart regular rate and rhythm Lungs clear with nonlabored respirations 10 cm x 10 cm sacral ulcer, odorous, appears full-thickness Assessment and Plan Pressure ulcer, sacrum, Stage 4 Surgical debridement scheduled for tomorrow Hold Lovenox N.p.o. after midnight IV antibiotics Follow culture/sensitivities Small bowel obstruction Clinically this appears resolved; she was only mildly symptomatic at best She will be n.p.o. for surgery Will follow clinically advance diet postoperatively if she continues to remain asymptomatic and have bowel sounds Additional per resident Subjective Sia is a 77 year old female with histor of MS a/w immobility, hypertension, morbid obesity, and pressure ulcers of the feet who was admitted 04/23 for a sacral pressure ulcer and small bowel obstruction. Today: - Patient is resting comfortably without concern. - Patient endorsed left upper gluteal pruritus at ulceration site. - She denies fever, chills, nausea, emesis, gluteal pain, or abdominal pain. - Notes bilious emesis 3 days ago, but none in last 24 hours. She is not nauseous. - No Hx of prior abdominal surgery or bowel obstruction - last bowel mvmt 1 week ago, she is passing gas. - Patient generally moves bowels ever 4-5 days, beleives she will have one today. - At last bowel movement patient was incontinent. Patient is tolerating management with Vancomycin and Zosyn. Review of Systems Review of Systems: See HPI. Physical Exam Physical Exam: Gen: NAD, alert, interactive Resp: Non-labored, no wheezing/rhonchi/rales, CTAB CV: RRR, normal S1/S2, no M/R/G Abd: soft, non-distended, no TTP, normoactive bowels, no masses Extr: 2+ dp bilaterally, 3+ lower extremity edema w/ associated skin breakdown bilaterally (chronic) Left Gluteal Area: 10 cm, Stage 4 left superior gluteal pressure ulceration with associated purulent, malodorous drainage Results & Data Results & Data ([facility]) Vital Signs (Past 12 Hours) Vital Signs Temp Pulse Pulse Resp BP Pulse Ox O2 Del Method 04/25/22 04:12 36.7 C 56 L 16 134/62 95 Room Air 04/25/22 01:40 Room Air 04/24/22 22:28 64 04/24/22 23:19 37.2 C 68 18 148/81 H 97 Room Air Resident Activity Tracking Resident Involvement: Resident Care Provided Care Provided: Adult Hospital Medicine (1) Ovarian cyst Laterality: unspecified laterality Qualified Code(s): N83.209 - Unspecified ovarian cyst, unspecified side
[2022-04-25 07:25] LABS: Albumin Globulin Ratio 0.9 (0.9-2); Albumin Level 2.4 gm/dl (3.4-5.0); BUN Creatinine Ratio 10.9 (10-20); Bilirubin,Total 0.6 mg/dl (0.2-1.0); Calcium 7.7 mg/dl (8.5-10.1); Creatinine Clr Calc Pharmacy 105.9 ml/min; Est GFR (African American) 109.7 ml/min; Est GFR (Non-African American) 94.6 ml/min; Globulin 2.7 gm/dl (2.5-4.0); Magnesium 1.8 mg/dl (1.7-2.4); Potassium 3.5 mmol/L (3.5-5.1); Total Protein 5.1 gm/dl (6.0-8.3)
--- NOTE | 2022-04-25 07:27 | Pharmacy Report ---
Pharmacy PK ABX Note - Date of Service April 25, 2022 - Assessment and Plan Assessment 77 year old F receiving Vancomycin and Zosyn for treatment of sacral decubitus ulcer. * PMHx significant for multiple sclerosis and wheelchair bound. Has a sulfa allergy. No recent admissions or antibiotics. * Sacral decubitus ulcer. Surgery consulted and recommends debridement this week. * Afebrile with leukocytosis resolved. Blood and urine cultures pending. Urinalysis suspicious for infection. Plan Vancomycin * Current regimen: 1250 mg IV every 12 hours * Random level obtained 04/25/22 resulted as 14.7 mcg/mL. This is predicted to achieve target AUC/JEREMIAH of 400-600 mg/L.hr * Predicted AUC at steady state: 529 mg/L.hr * Continue to 1250 mg IV every 12 hours * Repeat random level ordered for: 04/27/22 Zosyn * Continue 3.375 g IV every 8 hours Pharmacy will continue to follow and will adjust dose/frequency as necessary. Thank you. Pharmacy has transitioned to AUC monitoring for vancomycin. AUC/JEREMIAH is the preferred PK/PD target and is associated with decreased risk of nephrotoxicity compared to traditional trough targets.
[2022-04-25] MEDS: VANCOMYCIN HCL 1,250 MG in SODIUM CHLORIDE 0.9% 250 ML IV SCH ×2 (08:05→19:08)
[2022-04-25] MEDS: ADVANCED PROBIOTIC 1250 MG CAPSULE PO SCH ×2 (08:06→21:34)
[2022-04-25] MEDS: diazePAM 5 MG TABLET PO SCH (08:10)
[2022-04-25] MEDS: diazePAM 2 MG TABLET PO SCH (08:10)
[2022-04-25] MEDS ORDERED: diazePAM 2 MG TABLET PO PRN (08:55)
[2022-04-25] MEDS ORDERED: ENOXAPARIN INJ 40 MG/0.4 ML SYR SQ SCH (09:00)
--- NOTE | 2022-04-25 15:42 | Surgery Progress Note ---
Date of Service April 25, 2022 Assessment & Plan (1) Pressure ulcer, sacrum: Plan: full thickness sacral decubitus will need debridement this week 04/25/2022 3:41PM, Dr. Mirza plan, I recommend to do debridement sacral ulcer, D/w benefits, risks and alternatives of the surgery, the risks- infection, bleeding, recurrence, sepsis, pt understood, she agrees with the surgery, I answered all questions, Admission and Anticipated Discharge Date Admission Date: April 23, 2022 Supervising Physician Co-Signing Physician Notes Attending addendum: I have physically seen this patient, have supervised the EMELYN's activities, and agree with the H&P unless as otherwise noted. Assessment and Plan: Decubitus ulcer over buttock area- Gas within the left posterior gluteal region noted on CT Large area of eschar Placed. Clinic vancomycin IV and Zosyn IV Consult Dr. Yenifer Lan, plastic reconstructive surgery Office of aging following patient Follow blood cultures, wound cultures and sensitivities Consult wound care for local care [place] bed Small bowel obstruction- N.p.o. Antibiotics as noted above IV fluids If not able to eat over the next 2 days, and may require some peripheral nutrition Multiple sclerosis- Continue diazepam p.o. Ativan IV as needed for spasms Hypomagnesemia- 1.6 upon admission replace IV and recheck laboratories in a.m. Remaining orders and notations as noted Subjective Sia is a 77 year old female with histor of MS a/w immobility, hypertension, morbid obesity, and pressure ulcers of the feet who was admitted 04/23 for a sacral pressure ulcer and small bowel obstruction. Today: - Patient is resting comfortably without concern. - Patient endorsed left upper gluteal pruritus at ulceration site. - She denies fever, chills, nausea, emesis, gluteal pain, or abdominal pain. - Notes bilious emesis 3 days ago, but none in last 24 hours. She is not nauseous. - No Hx of prior abdominal surgery or bowel obstruction - last bowel mvmt 1 week ago, she is passing gas. - Patient generally moves bowels ever 4-5 days, beleives she will have one today. - At last bowel movement patient was incontinent. Patient is tolerating management with Vancomycin and Zosyn. 04/25/2022 3:39PM, Dr. Mirza F/U sacral ulcer. pt is stable, T 37.1, Review of Systems Constitutional: + weakness; no fever and no chills Eyes: no problem reported Ear, Nose, Mouth, Throat: no problem reported Respiratory: no cough and no dyspnea Cardiovascular: no chest pain Gastrointestinal: no abdominal pain, no nausea, no vomiting and no change in bowel habits Genitourinary: no dysuria Musculoskeletal: no back pain and no neck pain Integumentary: + lesions Neurologic: + generalized weakness Psychiatric: no behavioral changes Physical Exam Constitutional: WD/WN, vitals as above Eyes: PERRL, conjunctivae normal, anicteric sclerae Neck: trachea midline, no thyromegaly Respiratory: normal respiratory effort, lungs clear to auscultation Cardiovascular: RRR, no murmur, no edema Gastrointestinal (Abdomen): normal bowel sounds, soft, nontender, no hepatosplenomegaly Skin: stage 4 sacral ulcer with necrotic tissue, size about [id number], Neurologic: patellar DTR's 2+ bilat, sensation intact Psychiatric: A+Ox3, euthymic affect Results & Data ([facility]) Vital Signs (Past 12 Hours) Vital Signs Temp Pulse Resp BP Pulse Ox O2 Del Method 04/25/22 15:06 37.1 C 73 18 165/76 H 94 Room Air 04/25/22 11:37 36.5 C 63 18 171/76 H 95 Room Air 04/25/22 07:43 36.8 C 64 18 142/74 H 93 Room Air 04/25/22 04:12 36.7 C 56 L 16 134/62 95 Room Air Laboratory Results Abnormal lab results 04/25/22 04/25/22 Range/Units 06:38 06:38 RBC 3.49 L (3.93-5.22) M/uL Hgb 10.9 L (12.0-16.0) g/dl Hct 33.6 L (34.1-44.9) % RDW Std Deviation 50.3 H (36.4-46.3) fL MPV 8.2 L (9.4-12.3) fL Lymph # (Auto) 0.72 L (1.2-3.4) K/uL Immature Gran # (Auto) 0.03 H (0.00-0.02) K/uL BUN 5 L (6-23) mg/dl Creatinine 0.46 L (0.6-1.2) mg/dl Glucose 100 H (70-99(Fasting)) mg/dl Calcium 7.7 L (8.5-10.1) mg/dl Total Protein 5.1 L (6.0-8.3) gm/dl Albumin 2.4 L (3.4-5.0) gm/dl (1) Pressure ulcer, sacrum Pressure injury stage: unspecified pressure injury stage Qualified Code(s): L89.159 - Pressure ulcer of sacral region, unspecified stage
[2022-04-26] MEDS: VANCOMYCIN HCL 1,250 MG in SODIUM CHLORIDE 0.9% 250 ML IV SCH ×2 (05:37→17:54)
[2022-04-26] MEDS: PIPERACILLIN/TAZOBACTAM 3.375 GM in DEXTROSE 5% 100 ML IV SCH (05:38)
--- NOTE | 2022-04-26 08:11 | Hospitalist Progress Note ---
Date of Service April 26, 2022 Assessment & Plan (1) Decubitus ulcer of sacral area: Plan: Sia is a 77 year old female with history of MS a/w immobility, hypertension, morbid obesity, and pressure ulcers of the feet who was admitted 04/23 for a sacral pressure ulcer and small bowel obstruction. - Patient received surgical debridement of decubitus ulcer today 04/26, wound cultures pending - She is Day 4 of empiric Vancomycin and Zosyn, blood cultures NGTD 48 hours - Transitioned to Ceftriaxone 2g IV q24h plus Metronidazole 500 mg PO TID per pharmacy recommendation - Patient is chronically immobile / MS - WBC 7.0, lactate normal, hemodynamically stable - Patient denies pain at the site, only pruritus - Office of aging contacted, wound care consulted, specialty bed received (2) SBO (small bowel obstruction): Plan: - CT on admission indicated partial, small bowel obstruction with evidence of enterocolitis. - Patient was advanced to clear liquids 04/24, returned to clear liquids post-op, will advance as tollerated - No nausea or emesis - no indication for NGT at present - Patient is passing gas, last bowel movement > 1 week ago (3) Multiple sclerosis: Plan: - Chronic, stable on current management. - Diazepam 7 mg for spasms. - Patient is bed/wheelchair bound at baseline. - Patient endorses efforts to establish a home appliance washing machine mechanic through [employer] (4) Hypomagnesemia: Plan: - Repleted - 1.8 - stable - Will monitor (5) Tinea pedis: Plan: - Ketoconazole to be applied to feet bilaterally. - Monitor LFTs. (6) HTN (hypertension): Plan: - Known hx, not currently on medication - Labile while inpatient - Possible antihypertensive needed SBP 130s-170s - Will have patient keep home BP logs and follow up with her PCP. (7) Ovarian cyst: Plan: - New, 5.8 cm left ovarian cyst found via CT, pathologic given her age. - Encouraged outpatient f/u w/ [employer] DATA ANALYTICS for further evaluation Plan SDVT ppx: SCDs and Lovenox (resume in AM) Code Status: Full Diet: Clear liquids, will advance as tollerated Dispo: Telemetry Admission and Anticipated Discharge Date Admission Date: April 23, 2022 Supervising Physician Co-Signing Physician Notes I also saw the patient confirmed norman portions of the history and physical examination. I agree with impression and plan as noted the resident documentation. Upon mid afternoon exam, the patient is seen concurrently with the resident. Her is at bedside She has no new complaints. Exam 163/62, 63, 21, 36.7, 95% room air Heart regular rate and rhythm Lungs clear with nonlabored respirations Assessment and Plan Pressure ulcer, sacrum, Stage 4 Surgical debridement completed this morning Resume Lovenox in AM Antibiotics changed to ceftriaxone and metronidazole Follow culture/sensitivities Additional per resident Subjective Sia is a 77 year old female with history of MS a/w immobility, hypertension, morbid obesity, and pressure ulcers of the feet who was admitted 04/23 for a sacral pressure ulcer and small bowel obstruction. at bedside today. Today 04/26/22: - Patient is resting comfortably and has no acute concerns - she endorses unchanged gluteal pruritus - She denies fever, chills, nausea, emesis, gluteal pain, or abdominal pain. - No Hx of prior abdominal surgery or bowel obstruction - last bowel mvmt >1 week ago, she is passing gas. - Patient generally moves bowels ever 4-5 days, this episode is longer than usual - At last bowel movement patient was incontinent. Patient is tolerating management with Vancomycin and Zosyn. She is scheduled for surgical management of decubitus ulcer on left upper buttocks today with Dr. Mirza. Review of Systems Review of Systems: See HPI. Physical Exam Physical Exam: Gen: NAD, alert, interactive Resp: Non-labored, no wheezing/rhonchi/rales, CTAB CV: RRR, normal S1/S2, no M/R/G Abd: soft, non-distended, no TTP, normoactive bowels, no masses Extr: 2+ dp bilaterally, 3+ lower extremity edema w/ associated skin breakdown bilaterally (chronic) Left Gluteal Area: 10 cm, Stage 4 left superior gluteal pressure ulceration with associated purulent, malodorous drainage Patient refused examination of lower extremity lesions and sacral ulcer morning of 04/26. Results & Data Results & Data ([facility]) Vital Signs (Past 12 Hours) Vital Signs Temp Pulse Pulse Resp BP Pulse Ox O2 Del Method 04/26/22 07:47 62 04/26/22 07:32 36.5 C 72 18 152/79 H 94 Room Air 04/26/22 02:30 36.8 C 72 18 154/72 H 94 Room Air 04/26/22 02:05 74 04/25/22 22:54 36.8 C 65 17 152/76 H 93 Room Air Resident Activity Tracking Resident Involvement: Resident Care Provided Care Provided: Adult Hospital Medicine (1) Ovarian cyst Laterality: unspecified laterality Qualified Code(s): N83.209 - Unspecified ovarian cyst, unspecified side
[2022-04-26 08:36] LABS: Hemoglobin 11.4 g/dl (12.0-16.0); Mean Corpuscular Hemoglobin 31.4 pg (25.0-34.0); Mean Corpuscular Hgb Conc 32.6 g/dL (32.0-36.0); Mean Corpuscular Volume 96.4 fL (80.0-100.0); Mean Platelet Volume 8.6 fL (9.4-12.3); Platelet Count 354 K/uL (130-400); RDW Coefficient of Variation 14.3 % (11.5-14.5); RDW Standard Deviation 50.6 fL (36.4-46.3); Red Blood Count 3.63 M/uL (3.93-5.22)
[2022-04-26 08:59] LABS: Albumin Globulin Ratio 0.9 (0.9-2); Albumin Level 2.5 gm/dl (3.4-5.0); BUN Creatinine Ratio 12.2 (10-20); Bilirubin,Total 0.7 mg/dl (0.2-1.0); Calcium 7.9 mg/dl (8.5-10.1); Creatinine Clr Calc Pharmacy 97.7 ml/min; Est GFR (African American) 107.4 ml/min; Est GFR (Non-African American) 92.7 ml/min; Globulin 2.8 gm/dl (2.5-4.0); Magnesium 1.8 mg/dl (1.7-2.4); Potassium 3.4 mmol/L (3.5-5.1); Total Protein 5.3 gm/dl (6.0-8.3)
[2022-04-26] MEDS: ADVANCED PROBIOTIC 1250 MG CAPSULE PO SCH ×2 (09:00→20:53)
[2022-04-26] MEDS ORDERED: ONDANSETRON INJ 2 MG/ML 2 ML VIAL ONE ×2 (10:17→11:17)
[2022-04-26] MEDS ORDERED: LIDOCAINE 2% 20 MG/ML 5 ML SYR IV ONE (10:17)
[2022-04-26] MEDS ORDERED: fentaNYL citrate 100 MCG/2 ML VIAL ONE (10:17)
[2022-04-26] MEDS ORDERED: PROPOFOL IV EMULSION 10 MG/ML 20 ML VIAL IV ONE (10:17)
--- NOTE | 2022-04-26 10:33 | History & Physical Bridge Note ---
Date of Service April 26, 2022 History & Physical Bridge Note I have examined the patient, reviewed the History & Physical and in the interval since the performance of the History & Physical I have noted the following changes of clinical significance: no changes noted
[2022-04-26] MEDS ORDERED: BACITRACIN OINT 15 GM TUBE ONE (10:34)
[2022-04-26] MEDS ORDERED: LIDOCAINE 1% LOCAL 20 ML VIAL ONE (10:35)
[2022-04-26] MEDS ORDERED: MIDAZOLAM HCL 1 MG/ML 2ML VIAL ONE (10:40)
--- NOTE | 2022-04-26 10:44 | Anesthesiology Consultation ---
Date of Service April 26, 2022 Assessment & Plan (1) Encounter for pre-operative examination: History Surgery Operation Date: 04/26/22 10:10 Proposed Procedures p Debridement Sacral Ulcer - Jacob Mirza MD Height/Weight Height: 5 ft 4 in Weight: 84.1 kg Allergies Allergy/AdvReac Type Severity Reaction Status Date / Time mushroom Allergy Severe Swelling Verified 04/26/22 09:58 of Lip/Tongue/Throat Sulfa (Sulfonamide Allergy Severe ALL OVER Verified 04/26/22 09:58 Antibiotics) BODY SWELLING naproxen Allergy Unknown Unknown Verified 04/26/22 09:58 Medications Home Medications Medication Instructions Recorded Confirmed Last Taken diazepam 5 mg tablet 5 mg PO DAILY 06/20/18 04/23/22 07/01/18 Lactobacillus acidophilus 10 20,000 mmu cells PO DAILY 04/23/22 04/23/22 04/23/22 billion cell capsule (Probiotic) diazepam 2 mg tablet 2 mg PO DAILY 04/23/22 04/23/22 Unknown phenazopyridine 95 mg tablet 95 mg PO DIRECTED PRN 04/23/22 04/23/22 Unknown OCCASIONALLY, WHEN NEEDED Active Medications Generic Name Dose Route Start Last Admin Trade Name Freq PRN Reason Stop Dose Admin Piperacillin Sod/Tazobactam 115 mls @ 28.75 mls/hr 04/24/22 06:00 04/26/22 05:38 Sod 3.375 gm/ Dextrose IV 05/01/22 05:59 28.8 mls/hr Q8H KATI Administration Protocol Vancomycin HCl 1,250 mg/ 275 mls @ 200 mls/hr 04/24/22 06:00 04/26/22 07:43 Sodium Chloride IV 05/01/22 05:59 Infused Q12H KATI Infusion Lactobacillus Acidophilus 2 cap 04/24/22 21:00 04/25/22 21:34 Advanced Probiotic 1250 Mg Capsule PO 05/24/22 20:59 2 cap BID KATI Administration NPO Date Last Intake of Fluids: 04/25/22 Time Last Intake of Fluids: 21:00 Date Last Intake of Solids: 04/23/22 Time Last Intake of Solids: 20:00 Past Medical History Medical History HTN (hypertension) Multiple sclerosis Obesity Rotator cuff arthropathy of right shoulder LE weakness form MS. Uses a powerchair. Exercise / Class Metabolic Activity IV < 2 Limit ADL/Bedbound Past Family History Family History Other Family history non-contributory Past Surgical History Surgical History History of cataract surgery left cataract sx received 4mg versed and 100 fentanyl without apparent complications. History of tonsillectomy Past Anesthesia History No Hx of Anesthesia Complications and No Family Hx of Anesthesia Complications History of PONV No Hx of PONV Social History Smoking Status: Former smoker Hx Alcohol Use: Yes Alcohol type: beer alcohol intake frequency: a few times a week Hx Substance Use: No substance use type: does not use Last Used Substance: Unknown Physical Exam Vital Signs Last Vital Signs Temp 36.9 C 04/26/22 09:58 Pulse 76 04/26/22 09:58 Resp 20 04/26/22 09:58 BP 174/71 H 04/26/22 09:58 Pulse Ox 94 04/26/22 09:58 O2 Del Method 04/26/22 09:58 Testing Laboratory Results 04/26/22 07:37 04/26/22 07:37 PT 11.0 Seconds (9.0-12.0) 04/23/22 16:00 INR 1.0 (0.9-1.1) 04/23/22 16:00 APTT 27.0 Seconds (21.0-31.0) 04/23/22 16:00 Urine Color Dark Yellow 04/24/22 00:45 Urine Appearance Cloudy (Clear) A 04/24/22 00:45 Urine pH 7.0 (4.5-7.5) 04/24/22 00:45 Ur Specific [place] > 1.045 (1.000-1.030) H 04/24/22 00:45 Urine Protein Trace (Negative) H 04/24/22 00:45 Urine Glucose (UA) Negative (Negative) 04/24/22 00:45 Urine Ketones Negative (Negative) 04/24/22 00:45 Urine Nitrite Positive (Negative) A 04/24/22 00:45 Ur Leukocyte Esterase 2+ (Negative) H 04/24/22 00:45 Urine WBC (Auto) >30 /hpf (0-5) H 04/24/22 00:45 Urine RBC (Auto) 0-4 /hpf (0-4) 04/24/22 00:45 U Hyaline Cast (Auto) 10-30 /lpf (0-5) H 04/24/22 00:45 U Epithel Cells (Auto) >30 /lpf (0-5) H 04/24/22 00:45 Urine Bacteria (Auto) 4+ (Negative) H 04/24/22 00:45 04/23/22 16:00 Aerobic Blood Culture - Preliminary Blood No growth in Aerobic bottle after 48 hours. Anaerobic Blood Culture - Preliminary No growth in Anaerobic bottle after 48 hours. 04/23/22 16:11 Aerobic Blood Culture - Preliminary Blood No growth in Aerobic bottle after 48 hours. Anaerobic Blood Culture - Preliminary No growth in Anaerobic bottle after 48 hours. 04/24/22 00:45 Urine Culture - Final Urine,Clean Catch More than three types of organisms present, all high counts mixed probable skin herlinda - No further identifications or sensitivities to follow. Electrocardiogram Date: 04/23/22 inus rhythm with occasional Premature ventricular complexes Abnormal ECG When compared with ECG of 16-SEP-2018 19:13, Premature ventricular complexes are now Present
[2022-04-26] MEDS ORDERED: HYDROmorphone INJ 1 MG/ML SYRINGE IV PRN (10:50)
[2022-04-26] MEDS ORDERED: ONDANSETRON INJ 2 MG/ML 2 ML VIAL IV PRN ×2 (10:50→11:47)
[2022-04-26] MEDS ORDERED: fentaNYL citrate 100 MCG/2 ML VIAL IV PRN ×2 (10:50→11:47)
[2022-04-26] MEDS ORDERED: ePHEDrine sulfate 50 MG/ML AMP IV PRN ×2 (10:50→11:47)
[2022-04-26] MEDS ORDERED: ATROPINE SULFATE 0.1 MG/ML 10ML SYR IV PRN ×2 (10:50→11:47)
--- NOTE | 2022-04-26 11:37 | Post Operative Brief Note ---
Immediate Post Op Note v1 Date of Surgery April 26, 2022 Pre & Post Diagnosis Operation Date: 04/26/22 10:10 Pre-Op Diagnosis: chronic Sacral Wound, stage 3 Post-Op Diagnosis: chronic Sacral Wound, Stage 3 I identified the patient and participated in the time-out.: Yes Procedure Operation Date: 04/26/22 10:10 Actual Procedures p Debridement Sacral Ulcer wound , packing the wound, - Jacob Mirza MD Surgeon Jacob Mirza MD Rigging Helper technician semiconductor development Estimated Blood Loss 10 Findings Consistent with Post-Op Diagnosis remove necrotic tissue , wound culture sent, Fluids 300ml Specimens necrotic tissue Anesthesia Type Local Complications none Disposition Accompanied Patient To Recovery: Yes
[2022-04-26] MEDS ORDERED: BUPIVACAINE 0.5 % 5 MG/1 ML MPF 30ML VIAL INFIL ONE (11:38)
--- NOTE | 2022-04-26 12:11 | Anesthesiology Progress Note ---
Date of Service April 26, 2022 Anesthesia Post Procedure Vital Signs Vital Signs: Temp Pulse Pulse Pulse Resp BP BP 04/26/22 12:05 36.7 C 63 21 163/62 H 04/26/22 11:55 66 20 142/75 H 04/26/22 11:48 36.4 C L 68 15 167/71 H 04/26/22 09:58 36.9 C 76 20 174/71 H 04/26/22 07:47 62 04/26/22 07:32 36.5 C 72 18 152/79 H 04/26/22 02:30 36.8 C 72 18 154/72 H 04/26/22 02:05 74 04/25/22 22:54 36.8 C 65 17 152/76 H 04/25/22 19:25 37.0 C 67 18 154/77 H 04/25/22 15:06 37.1 C 73 18 165/76 H Pulse Ox O2 Del Method 04/26/22 12:05 95 Room Air 04/26/22 11:55 95 Room Air 04/26/22 11:48 96 Room Air 04/26/22 09:58 94 Room Air 04/26/22 07:47 04/26/22 07:32 94 Room Air 04/26/22 02:30 94 Room Air 04/26/22 02:05 04/25/22 22:54 93 Room Air 04/25/22 19:25 95 Room Air 04/25/22 15:06 94 Room Air Transfer of Care Handoff Completed per policy Notes Mental Status: alert / awake / arousable and participated in evaluation Patient Amnestic to Procedure: Yes Nausea / Vomiting: adequately controlled Pain: adequately controlled Airway Patency, RR, SpO2: stable & adequate BP & HR: stable & adequate Hydration State: stable & adequate Anesthetic Complications: no major complications apparent
[2022-04-26] MEDS ORDERED: NON-FORMULARY MEDICATION (Lactobacillus Acidophilus [Probiotic] 10 billion cell Capsule) PO SCH (12:57)
[2022-04-26] MEDS ORDERED: PERCOCET 5/325MG HOMEPACK PO ONE (12:57)
[2022-04-26] MEDS ORDERED: NON-FORMULARY MEDICATION (Phenazopyridine 95 mg Tablet) PO PRN (12:57)
[2022-04-26] MEDS ORDERED: cefTRIAXone SODIUM 2,000 MG in DEXTROSE 5% 50 ML IV SCH (13:55)
--- NOTE | 2022-04-26 14:28 | Operative Report (OR) ---
DATE OF PROCEDURE: 04/26/2022. PREOPERATIVE DIAGNOSIS: Chronic sacral wounds. POSTOPERATIVE DIAGNOSIS: Chronic sacral wound stage 4. OPERATION: Debridement chronic sacral wound. SURGEON: Jacob Mirza MD. ANESTHESIA: Conscious sedation plus local. ESTIMATED BLOOD LOSS: About 10 mL. FINDINGS: Chronic sacral wound, stage 4. COMPLICATIONS: None. INDICATIONS FOR THE PROCEDURE: This is a 77-year-old female who was admitted to the hospital for chronic sacral wound. I recommended to do debridement, chronic sacral wound. I did talk to the patient about the benefit, risk, alternate procedure. I indicated the risks may include, but not limited to, such as bleeding, infection, may need more procedure, sepsis. The patient understands. She signed informed consent and I answered all questions. DETAILS OF PROCEDURE: After we identified the patient and verified the procedure, we brought the patient to the OR, put the patient in the right side decubitus position on the OR table. The patient received SCD on bilateral legs to prevent DVT. Also, patient received 3.375 grams Zosyn IV for prophylactic antibiotic. The patient received conscious sedation by the Anesthesiology. The low back area was prepped and draped in routine sterile fashion. After timeout, reexamined the patient, there was one large necrosis tissue, size about 4 x 5 cm with a dark color on the wound, so we used a sharp knife. First, we injected the local first around the wound by using 1% lidocaine mixed with 0.5% Marcaine, then I used a knife to remove the chronic necrotic tissue into muscle layer. Again, the tissue removed deep to into muscle layer and again necrosis tissue size about 4 x 5 cm the wound stage 4, and also there was some pus around the tissue we sent as a wound culture x2. Once we completely removed all the tissue, we sent to pathology and hemostasis was obtained. Then I used Kerlix for packing the wound with normal saline. Then, we put the dressing on. The patient tolerated the procedure well. All instrument, needle and sponge counts were correct x2 at the end of the case. The patient was transferred to recovery room in stable condition. The specimen was sent to pathology. After the procedure, I did talk to the patient about the OR finding and the procedure we did, she understands. Job ID: [id number] [facility]
[2022-04-26] MEDS ORDERED: oxyCODONE/ACETAMINOPHEN 5mg/325mg TAB PO PRN (14:34)
[2022-04-26] MEDS: metroNIDAZOLE 500 MG TAB PO SCH ×2 (15:10→20:53)
[2022-04-26] MEDS: cefTRIAXone SODIUM 2,000 MG in DEXTROSE 5% 50 ML IV SCH (17:10)
[2022-04-27] MEDS ORDERED: VANCOMYCIN RANDOM LEVEL ONE (05:00)
[2022-04-27] MEDS: metroNIDAZOLE 500 MG TAB PO SCH ×3 (06:06→20:36)
--- NOTE | 2022-04-27 08:01 | Hospitalist Progress Note ---
Date of Service April 27, 2022 Assessment & Plan (1) Decubitus ulcer of sacral area: Plan: Sia is a 77 year old female with history of MS a/w immobility, hypertension, morbid obesity, and pressure ulcers of the feet who was admitted 04/23 for a sacral pressure ulcer and small bowel obstruction. Patient is s/p surgical debridement of her sacral ulcer. - Patient received surgical debridement of decubitus ulcer today 04/26, preliminary wound cultures show gram negative bacteria - Lovenox held for surgical procedure, restarted 04/27 at 1600. - She is Day 3 of Ceftriaxone 2g IV q24h plus Metronidazole 500 mg PO TID - Patient is chronically immobile 10/20 MS - WBC 7.6, hemodynamically stable - Office of aging contacted, wound care consulted, specialty bed received (2) SBO (small bowel obstruction): Plan: - CT on admission indicated partial, small bowel obstruction with evidence of enterocolitis. - Patient was advanced to regular diet 04/26 at lunch, she had a large bowel movem ent in the afternoon - Patient continues to consume regular diet without adverse event - No nausea or emesis - patient progressing well - Patient is passing gas, last bowel movement yesterday (3) Multiple sclerosis: Plan: - Chronic, stable on current management. - Diazepam 7 mg for spasms. - Patient is bed/wheelchair bound at baseline. 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 - Monitor LFTs. (6) HTN (hypertension): Plan: - Known hx, not currently on medication - Labile while inpatient - Possible antihypertensive needed SBP 130s-170s - Will have patient keep home BP logs and follow up with her PCP. (7) Ovarian cyst: Plan: - New, 5.8 cm left ovarian cyst found via CT, pathologic given her age. - Encouraged outpatient f/u w/ CLERICAL SUPERVISOR for further evaluation Plan SDVT ppx: SCDs and Lovenox Code Status: Full Diet: Regular Dispo: Telemetry Admission and Anticipated Discharge Date Admission Date: April 23, 2022 Supervising Physician Co-Signing Physician Notes I also saw the patient confirmed norman portions of the history and physical examination. I agree with impression and plan as noted the resident d ocumentation. Patient without complaints this morning. She has been tolerating a regular diet without difficulty. She notes having bowel movements. Apparently the IV site in her left forearm has infiltrated and this will be replaced by nursing today. Exam 134/61, 76, 16, 36.8, 94% room air Heart regular rate and rhythm Lungs clear with nonlabored respirations Data Pulmonary wound culture shows gram-negative bacilli. Assessment and Plan Pressure ulcer, sacrum, Stage 4 Surgical debridement postop day #1 Resume Lovenox Antibiotics changed to ceftriaxone and metronidazole Follow culture/sensitivities; once was complete, can confirm or adjust current antibiotic regimen and develop/refine a discharge plan Additional per resident Subjective Sia is a 77 year old female with history of MS a/w immobility, hypertension, morbid obesity, and pressure ulcers of the feet who was admitted 04/23 for a sacral pressure ulcer and small bowel obstruction. Today 04/27/22: - Patient is resting comfortably w/o concerns - gluteal pruritus continues w/o pain - She denies fever, chills, nausea, emesis, gluteal pain, or abdominal pain. - Endorses bowel movement yesterday afternoon - no difficulty with regular diet, continues to pass gas. Patient is tolerating management with Ceftriaxone and Metronidazole. She is received surgical management of decubitus ulcer on left upper buttocks yesterday with Dr. Mirza, without complications. Review of Systems Review of Systems: See HPI. Physical Exam Physical Exam: Gen: NAD, alert, interactive Resp: Non-labored, no wheezing/rhonchi/rales, CTAB CV: RRR, normal S1/S2, no M/R/G Abd: soft, non-distended, no TTP, normoactive bowels, no masses Extr: 2+ dp bilaterally, 3+ lower extremity edema w/ associated skin breakdown bilaterally (chronic) Left Gluteal Area: 10 cm, recently debrided, Stage 4 left superior gluteal pressure ulceration Results & Data Results & Data ([facility]) Vital Signs (Past 12 Hours) Vital Signs Temp Pulse Pulse Resp BP BP Pulse Ox 04/27/22 07:45 36.8 C 74 16 134/61 94 04/27/22 03:03 36.7 C 88 18 99/62 L 94 04/27/22 01:55 83 04/26/22 23:13 36.8 C 75 18 139/62 96 04/26/22 19:55 37.2 C 74 16 144/68 H 94 O2 Del Method 04/27/22 07:45 Room Air 04/27/22 03:03 Room Air 04/27/22 01:55 04/26/22 23:13 Room Air 04/26/22 19:55 Room Air Resident Activity Tracking Resident Involvement: Resident Care Provided Care Provided: Adult Hospital Medicine (1) Ovarian cyst Laterality: unspecified laterality Qualified Code(s): N83.209 - Unspecified ovarian cyst, unspecified side
[2022-04-27 08:47] LABS: Hematocrit (blood only) 36.2 % (34.1-44.9); Hemoglobin 11.6 g/dl (12.0-16.0); Mean Corpuscular Hemoglobin 31.4 pg (25.0-34.0); Mean Corpuscular Volume 98.1 fL (80.0-100.0); Mean Platelet Volume 8.2 fL (9.4-12.3); Platelet Count 367 K/uL (130-400); RDW Coefficient of Variation 14.5 % (11.5-14.5); RDW Standard Deviation 52.5 fL (36.4-46.3); Red Blood Count 3.69 M/uL (3.93-5.22)
[2022-04-27 09:27] LABS: Albumin Globulin Ratio 0.8 (0.9-2); Albumin Level 2.5 gm/dl (3.4-5.0); BUN Creatinine Ratio 16.7 (10-20); Bilirubin,Total 0.5 mg/dl (0.2-1.0); Calcium 8.6 mg/dl (8.5-10.1); Creatinine Clr Calc Pharmacy 72.8 ml/min; Est GFR (African American) 97.4 ml/min; Globulin 3.1 gm/dl (2.5-4.0); Magnesium 1.7 mg/dl (1.7-2.4); Potassium 4.4 mmol/L (3.5-5.1); Total Protein 5.6 gm/dl (6.0-8.3)
--- NOTE | 2022-04-27 09:49 | Pharmacy Report ---
Pharmacy PK ABX Note - Date of Service April 27, 2022 - Assessment and Plan Assessment 77 year old F receiving Vancomycin and Zosyn for treatment of sacral decubitus ulcer. * PMHx significant for multiple sclerosis and wheelchair bound. Has a sulfa allergy. No recent admissions or antibiotics. * Sacral decubitus ulcer. Underwent debridement in OR yesterday. Initial cultures from OR growing gram negative bacilli. Will await final identification prior to de-escalating antibiotics. * All other cultures negative. Plan Vancomycin * Current regimen: 1250 mg IV every 12 hours * Random level obtained 04/27/22 resulted as 16.5 mcg/mL. This random level was actually drawn 2.5 hours after dose was due so true trough is likely around 18 mcg/mL which predicts an AUC/JEREMIAH around 700 mg/L.hr. Therefore, will reduce vancomycin dose today. * Change to 1000 mg IV every 12 hours * Predicted AUC at steady state: 567 mg/L.hr * Repeat trough level ordered for: 04/29/22 Zosyn * Continue 3.375 g IV every 8 hours Pharmacy will continue to follow and will adjust dose/frequency as necessary. Thank you. Pharmacy has transitioned to AUC monitoring for vancomycin. AUC/JEREMIAH is the preferred PK/PD target and is associated with decreased risk of nephrotoxicity compared to traditional trough targets.
[2022-04-27] MEDS ORDERED: VANCOMYCIN HCL 1,000 MG in SODIUM CHLORIDE 0.9% 250 ML IV SCH (10:00)
[2022-04-27] MEDS: VANCOMYCIN HCL 1,250 MG in SODIUM CHLORIDE 0.9% 250 ML IV SCH (10:35)
[2022-04-27] MEDS: ADVANCED PROBIOTIC 1250 MG CAPSULE PO SCH ×2 (10:52→20:36)
[2022-04-27] MEDS: cefTRIAXone SODIUM 2,000 MG in DEXTROSE 5% 50 ML IV SCH (15:55)
--- NOTE | 2022-04-27 18:30 | Surgery Progress Note ---
Date of Service April 27, 2022 Assessment & Plan (1) Pressure ulcer, sacrum: Plan: full thickness sacral decubitus will need debridement this week 04/25/2022 3:41PM, Dr. Mirza plan, I recommend to do debridement sacral ulcer, D/w benefits, risks and alternatives of the surgery, the risks- infection, bleeding, recurrence, sepsis, pt understood, she agrees with the surgery, I answered all questions, 04/27/2022 6: 37PM wound culture- G- bacilli, recommend- pt may be candidate for wound VAC, sign off today, Melanie [facility] wound care center, Admission and Anticipated Discharge Date Admission Date: April 23, 2022 Supervising Physician Co-Signing Physician Notes I also saw the patient confirmed norman portions of the history and physical examination. I agree with impression and plan as noted the resident documentation. Patient without complaints this morning. She has been tolerating a regular diet without difficulty. She notes having bowel movements. Apparently the IV site in her left forearm has infiltrated and this will be replaced by nursing today. Exam 134/61, 76, 16, 36.8, 94% room air Heart regular rate and rhythm Lungs clear with nonlabored respirations Data Pulmonary wound culture shows gram-negative bacilli. Assessment and Plan Pressure ulcer, sacrum, Stage 4 Surgical debridement postop day #1 Resume Lovenox Antibiotics changed to ceftriaxone and metronidazole Follow culture/sensitivities; once was complete, can confirm or adjust current antibiotic regimen and develop/refine a discharge plan Additional per resident Subjective Sia is a 77 year old female with history of MS a/w immobility, hypertension, morbid obesity, and pressure ulcers of the feet who was admitted 04/23 for a sacral pressure ulcer and small bowel obstruction. Today 04/27/22: - Patient is resting comfortably w/o concerns - gluteal pruritus continues w/o pain - She denies fever, chills, nausea, emesis, gluteal pain, or abdominal pain. - Endorses bowel movement yesterday afternoon - no difficulty with regular diet, continues to pass gas. Patient is tolerating management with Ceftriaxone and Metronidazole. She is received surgical management of decubitus ulcer on left upper buttocks yesterday with Dr. Mirza, without complications. 04/27/2022 6: 29PM Dr. Mirza Review of Systems Constitutional: + weakness; no fever and no chills Eyes: no problem reported Ear, Nose, Mouth, Throat: no problem reported Respiratory: no cough and no dyspnea Cardiovascular: no chest pain Gastrointestinal: no abdominal pain, no nausea, no vomiting and no change in bowel habits Genitourinary: no dysuria Musculoskeletal: no back pain and no neck pain Integumentary: + lesions Neurologic: + generalized weakness Psychiatric: no behavioral changes Physical Exam Constitutional: WD/WN, vitals as above Eyes: PERRL, conjunctivae normal, anicteric sclerae Neck: trachea midline, no thyromegaly Respiratory: normal respiratory effort, lungs clear to auscultation Cardiovascular: RRR, no murmur, no edema Gastrointestinal (Abdomen): normal bowel sounds, soft, nontender, no hepatosplenomegaly Skin: the wound is dry, Neurologic: patellar DTR's 2+ bilat, sensation intact Psychiatric: A+Ox3, euthymic affect Results & Data ([facility]) Vital Signs (Past 12 Hours) Vital Signs Temp Pulse Pulse Resp BP Pulse Ox O2 Del Method 04/27/22 16:15 36.6 C 73 16 152/68 H 94 Room Air 04/27/22 15:39 89 04/27/22 08:06 76 04/27/22 07:45 36.8 C 74 16 134/61 94 Room Air Laboratory Results Abnormal lab results 04/27/22 04/27/22 Range/Units 08:34 08:34 RBC 3.69 L (3.93-5.22) M/uL Hgb 11.6 L (12.0-16.0) g/dl RDW Std Deviation 52.5 H (36.4-46.3) fL MPV 8.2 L (9.4-12.3) fL Carbon Dioxide 33 H (21-32) mmol/L Glucose 110 H (70-99(Fasting)) mg/dl AST 10 L (13-39) U/L Alkaline Phosphatase 108 H (34-104) U/L Total Protein 5.6 L (6.0-8.3) gm/dl Albumin 2.5 L (3.4-5.0) gm/dl Albumin/Globulin Ratio 0.8 L (0.9-2) (1) Pressure ulcer, sacrum Pressure injury stage: unspecified pressure injury stage Qualified Code(s): L89.159 - Pressure ulcer of sacral region, unspecified stage
[2022-04-27] MEDS: ENOXAPARIN INJ 40 MG/0.4 ML SYR SQ SCH (18:32)
[2022-04-27] MEDS: ACETAMINOPHEN 500 MG TAB PO PRN (20:35)
[2022-04-28] MEDS: metroNIDAZOLE 500 MG TAB PO SCH ×2 (06:03→15:24)
[2022-04-28 08:24] LABS: Hematocrit (blood only) 36.9 % (34.1-44.9); Mean Corpuscular Hemoglobin 31.4 pg (25.0-34.0); Mean Corpuscular Hgb Conc 32.5 g/dL (32.0-36.0); Mean Corpuscular Volume 96.6 fL (80.0-100.0); Mean Platelet Volume 9.1 fL (9.4-12.3); Platelet Count 219 K/uL (130-400); RDW Coefficient of Variation 14.5 % (11.5-14.5); RDW Standard Deviation 50.8 fL (36.4-46.3); Red Blood Count 3.82 M/uL (3.93-5.22); White Blood Count 6.79 K/ul (4.8-10.8)
--- NOTE | 2022-04-28 08:27 | Hospitalist Progress Note ---
Date of Service April 28, 2022 Assessment & Plan (1) Decubitus ulcer of sacral area: Plan: Sia is a 77 year old female with history of MS a/w immobility, hypertension, morbid obesity, and pressure ulcers of the feet who was admitted 04/23 for a sacral pressure ulcer and small bowel obstruction. Patient is s/p surgical debridement of her sacral ulcer. - Patient received surgical debridement of decubitus ulcer today 04/26, wound cultures indicated proteus mirabilus. - Antibiotic management changed to Keflex 500 mg TID for 14 days. She will begin her course tomorrow. - Lovenox held for surgical procedure, restarted 04/27 at 1600. - Ceftriaxone and Metronidazole discontinued. - Patient is chronically immobile 2/2 MS - WBC 6.79, hemodynamically stable - Office of aging contacted, wound care consulted, specialty bed received - Order placed for wound vac, appreciate nursing placement, wound nurse consulted (2) SBO (small bowel obstruction): Plan: - CT on admission indicated partial, small bowel obstruction with evidence of enterocolitis. - Patient was advanced to regular diet 04/26 at lunch, she had a large bowel movement in the afternoon 04/26 - Patient continues to consume regular diet without adverse event - No nausea or emesis - patient progressing well - Patient is passing gas, last bowel movement two days ago (3) Multiple sclerosis: Plan: - Chronic, stable on current management. - Diazepam 7 mg for spasms. - Patient is bed/wheelchair bound at baseline. 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 (5) Tinea pedis: Plan: - Ketoconazole to feet bilaterally. - Monitor LFTs. (6) HTN (hypertension): Plan: - Known hx, not currently on medication - Labile while inpatient - Possible antihypertensive needed SBP 130s-170s - Will have patient keep home BP logs and follow up with her PCP. (7) Ovarian cyst: Plan: - New, 5.8 cm left ovarian cyst found via CT, pathologic given her age. - Encouraged outpatient f/u w/ BUS DRIVER SUPERVISOR for further evaluation Plan SDVT ppx: SCDs and Lovenox Code Status: Full Diet: Regular Dispo: Med/Surg Admission and Anticipated Discharge Date Admission Date: April 23, 2022 Supervising Physician Co-Signing Physician Notes I also saw the patient confirmed norman portions of the history and physical examination. I agree with impression and plan as noted the resident documentation. Patient without complaints this afternoon. is at bedside. Exam 144/78, 76, 19, 37.1 Heart regular rate and rhythm Lungs clear with nonlabored respirations Data Pulmonary wound culture shows proteus. HgB = 12 Sodium 140, potassium 3.7, BUN 13, Cr 0.63 Assessment and Plan Pressure ulcer, sacrum, Stage 4 Surgical debridement postop day #2 Resume Lovenox Change antibiotics to Keflex Wound vac to be placed Additional per resident Subjective Sia is a 77 year old female with history of MS a/w immobility, hypertension, morbid obesity, and pressure ulcers of the feet who was admitted 04/23 for a sacral pressure ulcer and small bowel obstruction. Today 04/28/22: - Patient is resting comfortably w/o concerns - gluteal pruritus continues w/o pain - Patient endorsed a headache overnight that resolved with Tylenol, no current headache - She denies fever, chills, nausea, emesis, gluteal pain, or abdominal pain. - Endorses bowel movement two days ago (q4-5 days is her normal) - no difficulty with regular diet, continues to pass gas. Patient is tolerating management with Ceftriaxone and Metronidazole. She is received surgical management of decubitus ulcer on left upper buttocks 04/[address] Mirza, without complications. Review of Systems Review of Systems: See HPI. Physical Exam Physical Exam: Gen: NAD, alert, interactive Resp: Non-labored, no wheezing/rhonchi/rales, CTAB CV: RRR, normal S1/S2, no M/R/G Abd: soft, non-distended, no TTP, normoactive bowels, no masses Extr: 2+ dp bilaterally, 3+ lower extremity edema w/ associated skin breakdown bilaterally (chronic) Left Gluteal Area: 10 cm, recently debrided, Stage 4 left superior gluteal pressure ulceration Results & Data Results & Data ([facility] [place]) Vital Signs (Past 12 Hours) Vital Signs Temp Pulse Resp BP BP Pulse Ox O2 Del Method 04/28/22 08:14 36.4 C L 72 18 166/83 H 95 Room Air 04/28/22 06:25 36.5 C 82 18 169/83 H 93 Room Air 04/27/22 22:00 37.1 C 83 18 137/69 93 Room Air Resident Activity Tracking Resident Involvement: Resident Care Provided Care Provided: Adult Hospital Medicine (1) Ovarian cyst Laterality: unspecified laterality Qualified Code(s): N83.209 - Unspecified ovarian cyst, unspecified side
[2022-04-28] MEDS: ADVANCED PROBIOTIC 1250 MG CAPSULE PO SCH ×2 (08:40→21:29)
[2022-04-28 08:52] LABS: Albumin Globulin Ratio 0.8 (0.9-2); Albumin Level 2.6 gm/dl (3.4-5.0); BUN Creatinine Ratio 20.6 (10-20); Bilirubin,Total 0.4 mg/dl (0.2-1.0); Calcium 8.9 mg/dl (8.5-10.1); Creatinine Clr Calc Pharmacy 74.1 ml/min; Est GFR (African American) 98.9 ml/min; Est GFR (Non-African American) 85.3 ml/min; Globulin 3.2 gm/dl (2.5-4.0); Magnesium 1.8 mg/dl (1.7-2.4); Potassium 3.7 mmol/L (3.5-5.1); Total Protein 5.8 gm/dl (6.0-8.3)
[2022-04-28] MEDS ORDERED: diazePAM 5 MG TABLET PO PRN (13:04)
[2022-04-28] MEDS: ENOXAPARIN INJ 40 MG/0.4 ML SYR SQ SCH (15:24)
[2022-04-28] MEDS: cefTRIAXone SODIUM 2,000 MG in DEXTROSE 5% 50 ML IV SCH (15:31)
[2022-04-29] MEDS: cephALEXin 500 MG CAP PO SCH ×3 (08:52→20:32)
[2022-04-29] MEDS: ADVANCED PROBIOTIC 1250 MG CAPSULE PO SCH ×2 (08:52→20:32)
[2022-04-29] MEDS ORDERED: VANCOMYCIN TROUGH LEVEL ONE (09:30)
[2022-04-29] MEDS ORDERED: MICONAZOLE NITRATE POWDER 43 GM EXT PRN (11:36)
[2022-04-29 12:10] LABS: Hematocrit (blood only) 37.6 % (34.1-44.9); Mean Corpuscular Hemoglobin 31.1 pg (25.0-34.0); Mean Corpuscular Hgb Conc 31.9 g/dL (32.0-36.0); Mean Corpuscular Volume 97.4 fL (80.0-100.0); Mean Platelet Volume 8.6 fL (9.4-12.3); Platelet Count 341 K/uL (130-400); RDW Coefficient of Variation 14.9 % (11.5-14.5); RDW Standard Deviation 53.7 fL (36.4-46.3); Red Blood Count 3.86 M/uL (3.93-5.22); White Blood Count 8.74 K/ul (4.8-10.8)
[2022-04-29 12:52] LABS: BUN Creatinine Ratio 16.1 (10-20); Calcium 9.2 mg/dl (8.5-10.1); Creatinine Clr Calc Pharmacy 75.5 ml/min; Est GFR (African American) 99.4 ml/min; Est GFR (Non-African American) 85.8 ml/min; Potassium 3.9 mmol/L (3.5-5.1)
--- NOTE | 2022-04-29 15:59 | Hospitalist Progress Note ---
Date of Service April 29, 2022 Assessment & Plan (1) Decubitus ulcer of sacral area: Plan: Sia is a 77 year old female with history of MS a/w immobility, hypertension, morbid obesity, and pressure ulcers of the feet who was admitted 04/23 for a sacral pressure ulcer and small bowel obstruction. Patient is s/p surgical debridement of her sacral ulcer. - Patient received surgical debridement of decubitus ulcer today 04/26, wound cultures positive for proteus mirabilis. - Antibiotic management changed to Keflex 500 mg TID for 14 days. Completed day 10/01. - Lovenox held for surgical procedure, restarted 04/27 at 1600. - Ceftriaxone and Metronidazole discontinued. Now on Keflex 500 mg 3 times daily x14 days. - Patient is chronically immobile 2/ MS - WBC 6.79, hemodynamically stable - No response as of yet from the office of aging. * Wound VAC tentatively scheduled today. Dispo pending home health care coordination, response from office of aging. * Wound VAC prescription signed. (2) SBO (small bowel obstruction): Plan: - CT on admission indicated partial, small bowel obstruction with evidence of enterocolitis. - Patient was advanced to regular diet 04/26 at lunch, she had a large bowel movement in the afternoon 04/26 - Patient continues to consume regular diet without adverse event - No nausea or emesis - patient progressing well - Patient is passing gas, last bowel movement two days ago (3) Multiple sclerosis: Plan: - Chronic, stable on current management. - Diazepam 7 mg for spasms. - Patient is bed/wheelchair bound at baseline. - Patient endorses efforts to establish a home health billing specialist through [employer] (4) Hypomagnesemia: Plan: - Repleted, resolved. (5) Tinea pedis: Plan: - Ketoconazole to feet bilaterally. - Monitor LFTs. (6) HTN (hypertension): Plan: - Known hx, not currently on medication - Possible antihypertensive needed SBP 130s-170s - Will have patient keep home BP logs and follow up with her PCP. (7) Ovarian cyst: Plan: - New, 5.8 cm left ovarian cyst found via CT, pathologic given her age. - Encouraged outpatient f/u w/ BAKER for further evaluation Plan SDVT ppx: SCDs and Lovenox Code Status: Full Diet: Regular Dispo: Med/Surg Admission and Anticipated Discharge Date Admission Date: April 23, 2022 Supervising Physician Co-Signing Physician Notes Patient seen and examined independently of PGY-2 Dr. Queen. Agree with history, exam findings, assessment and plan of care as outlined. In brief, Sia is a 77 year old female with history of MS, immobility, HTN, morbid obesity, and pressure ulcers of the feet was admitted with a sacral pressure ulcer and SBO. Today, she is feeling well. She is bedbound and immobile due to her MS. VS and nursing notes reviewed. Non-toxic appearing. Heart with regular rate and rhythm. Lungs are clear to auscultation. Labs and imaging reviewed. 1. Sacral decubitus ulcer. s/p debridement on 04/26. Cultures growing proteus mirabilus. Keflex TID 14 days. Wound vac applied today. Will get home Rx for wound vac signed tomorrow. CM attempted to get in contact with [facility] but unclear that there is much they can do at this time. There is concern about whether patient's home is in live-able condition (per EMS note). Will need repositioning freqeuntly at home to avoid further pressure ulcers. 2. SBO. CT with partial SBO with enterocolitis. Resolved. 3. MS. Diazepam 7mg PRN spasm. 4. New ovarian cyst. 5.8cm left ovarian cyst. Needs outpatient follow up with gyne. Dispo: safety at home is still in question so will need to untangle this prior to discharge. Subjective No acute events overnight. No acute concerns on review of systems. Patient expects to go home today. Otherwise, she has no concerns. Review of Systems Review of Systems: All systems reviewed & are unremarkable except as noted in HPI & below Physical Exam Physical Exam: Gen: NAD, alert, interactive Resp: Non-labored, no wheezing/rhonchi/rales, CTAB CV: RRR, normal S1/S2, no M/R/G Abd: soft, non-distended, no TTP, normoactive bowels, no masses Extr: 2+ dp bilaterally, 3+ lower extremity edema w/ associated skin breakdown bilaterally (chronic) Left Gluteal Area: 10 cm, recently debrided, Stage 4 left superior gluteal pressure ulceration Results & Data Results & Data ([facility]) Vital Signs (Past 12 Hours) Vital Signs Temp Pulse Resp BP Pulse Ox O2 Del Method 04/29/22 07:32 36.6 C 73 18 159/74 H 97 Room Air Resident Activity Tracking Resident Involvement: Resident Care Provided Care Provided: Adult Hospital Medicine (1) Ovarian cyst Laterality: unspecified laterality Qualified Code(s): N83.209 - Unspecified ovarian cyst, unspecified side
[2022-04-29] MEDS: ENOXAPARIN INJ 40 MG/0.4 ML SYR SQ SCH (16:10)
[2022-04-29] MEDS: ACETAMINOPHEN 500 MG TAB PO PRN (19:41)
--- NOTE | 2022-04-30 06:43 | Hospitalist Progress Note ---
Date of Service April 30, 2022 Assessment & Plan (1) Decubitus ulcer of sacral area: Plan: Sia is a 77 year old female with history of MS a/w immobility, hypertension, morbid obesity, and pressure ulcers of the feet who was admitted 04/23 for a sacral pressure ulcer and small bowel obstruction. Patient is s/p surgical debridement of her sacral ulcer. - Patient received surgical debridement of decubitus ulcer 04/26, wound cultures + for proteus mirabilis. - Abx mgmt w/ Keflex 500 mg TID, day 11/29. - Patient is chronically immobile / MS - Awaiting direction from OOA regarding safety home home - patient will require frequent repositioning and ongoing management of sacral decubitus ulcer, dispo pending HH coordination and OOA. Wound vac placed, script signed 04/30/22 (2) SBO (small bowel obstruction): Plan: - CT on admission indicated partial, small bowel obstruction - Patient was advanced to regular diet 04/26 and achieved a large bowel movement the same day - Patient continues to consume regular diet without adverse event - No nausea or emesis - patient progressing well - Patient is passing gas, last bowel movement 4 days ago (3) Multiple sclerosis: Plan: - Chronic, stable on current management. - Diazepam 7 mg for spasms. - Patient is bed/wheelchair bound at baseline. - Patient endorses efforts to establish a lvn home health through [employer] (4) Hypomagnesemia: Plan: - Repleted, resolved. (5) Tinea pedis: Plan: - Ketoconazole to feet bilaterally. - Monitor LFTs. (6) HTN (hypertension): Plan: - Known hx, not currently on medication - Possible antihypertensive needed SBP 130s-170s - Will have patient keep home BP logs and follow up with her PCP. (7) Ovarian cyst: Plan: - New, 5.8 cm left ovarian cyst found via CT, pathologic given her age. - Encouraged outpatient f/u w/ [employer] for further evaluation Plan SDVT ppx: SCDs and Lovenox Code Status: Full Diet: Regular Dispo: Med/Surg, pending OOA and HH coordinatoin Admission and Anticipated Discharge Date Admission Date: April 23, 2022 Supervising Physician Co-Signing Physician Notes Patient seen and examined independently of PGY-2 Dr. Queen. Agree with history, exam findings, assessment and plan of care as outlined. In brief, Sia is a 77 year old female with history of MS, immobility, HTN, morbid obesity, and pressure ulcers of the feet was admitted with a sacral pressure ulcer and SBO. Today, she is feeling well. VS and nursing notes reviewed. Non-toxic appearing. Heart with regular rate and rhythm. Lungs are clear to auscultation. Labs and imaging reviewed. 1. Sacral decubitus ulcer. s/p debridement on 04/26. Cultures growing proteus. Keflex TID x 14 days. Wound vac applied yesterday. Awaiting insurance approval. Home health will not be able to see her until Monday and she would need to be seen within 48 hours of discharge. 2. SBO. CT with partial SBO with enterocolitis. Resolved. 3. MS. Diazepam 7mg PRN spasm. 4. New ovarian cyst. 5.8cm left ovarian cyst. Needs outpatient follow up with gyne. Dispo: Medically stable for discharge. Awaiting insurance authorization for wound vac for home; accepting home health agency would not be able to see her until Monday so she would need to be discharged on Monday. Plan for her to follow up post-discharge with PSH (Dr. Walls at [facility] or Dr. Carlyle Velázquez at [facility]). Subjective Sia is a 77 year old female with history of MS a/w immobility, hypertension, morbid obesity, and pressure ulcers of the feet who was admitted 04/23 for a sacral pressure ulcer and small bowel obstruction. Today 04/30/22: - Patient is resting comfortably w/o acute events overnight - She denies fever, chills, nausea, emesis, gluteal pain, or abdominal pain. - Endorses bowel movement 4 days ago (q4-5 days is her normal) - no difficulty with regular diet, continues to pass gas. Patient is tolerating management with Cephalexin (Keflex). She is received surgical management of decubitus ulcer on left upper buttocks 04/[address] Mirza, without complications. Review of Systems Review of Systems: See HPI. 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
[2022-04-30] MEDS: cephALEXin 500 MG CAP PO SCH ×3 (08:47→21:07)
[2022-04-30] MEDS: ADVANCED PROBIOTIC 1250 MG CAPSULE PO SCH ×2 (08:47→21:07)
[2022-04-30] MEDS: ENOXAPARIN INJ 40 MG/0.4 ML SYR SQ SCH (16:20)
--- NOTE | 2022-05-01 06:45 | Hospitalist Progress Note ---
Date of Service May 01, 2022 Assessment & Plan (1) Decubitus ulcer of sacral area: Plan: Sia is a 77 year old female with history of MS a/w immobility, hypertension, morbid obesity, and pressure ulcers of the feet who was admitted 04/23 for a sacral pressure ulcer and small bowel obstruction. Patient is s/p surgical debridement of her sacral ulcer. - Patient received surgical debridement of decubitus ulcer 04/26, wound cultures + for proteus mirabilis. - Abx mgmt w/ Keflex 500 mg TID, day 01/29. - Patient is chronically immobile 10/20 MS - Patient is medically stable. - OOA did not discourage return home. HH can see patient Monday w/in 48 hours of discharge. Will anticipate Monday discharge. Patient will require frequent repositioning and ongoing management of sacral decubitus ulcer. Wound vac placed, script signed 04/30/22. (2) SBO (small bowel obstruction): Plan: - CT on admission indicated partial, small bowel obstruction - Patient was advanced to regular diet 04/26 and achieved a large bowel movement the same day - Patient continues to consume regular diet without adverse event - No nausea or emesis - patient progressing well - Patient is passing gas, last bowel movement 4 days ago (3) Multiple sclerosis: Plan: - Chronic, stable on current management. - Diazepam 7 mg for spasms. - Patient is bed/wheelchair bound at baseline. 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 (5) Tinea pedis: Plan: - Ketoconazole to feet bilaterally. - Monitor LFTs. (6) HTN (hypertension): Plan: - Known hx, not currently on medication - Possible antihypertensive needed SBP 130s-170s - Will have patient keep home BP logs and follow up with her PCP. (7) Ovarian cyst: Plan: - New, 5.8 cm left ovarian cyst found via CT, pathologic given her age. - Encouraged outpatient f/u w/ [employer] for further evaluation Plan SDVT ppx: SCDs and Lovenox Code Status: Full Diet: Regular Dispo: Med/Surg, pending OOA and HH coordinatoin Admission and Anticipated Discharge Date Admission Date: April 23, 2022 Supervising Physician Co-Signing Physician Notes Patient seen and examined independently of PGY-1 Dr. Walls. Agree with history, exam findings, assessment and plan of care as outlined. In brief, Sia is a 77 year old female with history of MS, immobility, HTN, morbid obesity, and pressure ulcers of the feet was admitted with a sacral pressure ulcer and SBO. Today, she is feeling well. No complaints. Do have a rectal tube and ly due to incontinence and proximity of the VS and nursing notes reviewed. Non-toxic appearing. Heart with regular rate and rhythm. Lungs are clear to auscultation. Labs and imaging reviewed. 1. Sacral decubitus ulcer. s/p debridement on 04/26. Cultures growing proteus. Keflex TID x 14 days. Wound vac applied yesterday. Awaiting insurance approval. Home health will not be able to see her until Monday and she would need to be seen within 48 hours of discharge. 2. SBO. CT with partial SBO with enterocolitis. Resolved. 3. MS. Diazepam 7mg PRN spasm. 4. New ovarian cyst. 5.8cm left ovarian cyst. Needs outpatient follow up with gyne. Dispo: Medically stable for discharge. Awaiting insurance authorization for wound vac for home; accepting home health agency would not be able to see her until Monday so she would need to be discharged on Monday. Plan for her to follow up post-discharge with PSH (Dr. Walls at [facility] or Dr. Carlyle Velázquez at [facility]). Subjective Sia is a 77 year old female with history of MS a/w immobility, hypertension, morbid obesity, and pressure ulcers of the feet who was admitted 04/23 for a sacral pressure ulcer and small bowel obstruction. Today 05/01/22: - Patient is resting comfortably w/o acute concern - She denies fever, chills, nausea, emesis, gluteal pain, or abdominal pain. - Endorses bowel movement loose bowel movement yesterday and continued flatus Patient is tolerating management with Cephalexin (Keflex). She is received surgical management of decubitus ulcer on left upper buttocks 04/[address] Mirza, without complications. Review of Systems Review of Systems: See HPI. 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
[2022-05-01] MEDS: ADVANCED PROBIOTIC 1250 MG CAPSULE PO SCH ×2 (08:16→20:26)
[2022-05-01] MEDS: cephALEXin 500 MG CAP PO SCH ×3 (08:16→20:26)
[2022-05-01] MEDS: ENOXAPARIN INJ 40 MG/0.4 ML SYR SQ SCH (15:52)
--- NOTE | 2022-05-02 07:14 | Discharge Summary ---
Date of Service May 02, 2022 Admission HPI Per Admitting Provider Sia Grissom is a 77-year-old female with a past medical history significant for MS who presents today from home after a fall. Patient is wheelchair-bound at baseline, she was transferring to her commode today when she fell and became wedged between her bed and sink. Her called EMS for transportation to the ED for evaluation. Here, she is without any complaints or pain, however on initial exam she was found to have a deep wound to her left buttocks. She had pain on her buttocks for the past week, but denies noticing any open wound. She is also noted to have a partial SBO. Patient states she has been feeling perfectly well at home, however at bedside does report that she had 2 days of frequent vomiting on empty stomach that has now subsided. Otherwise, has been afebrile, no chest pain, shortness of breath, cough, abdominal pain, nausea, diarrhea. Patient states she typically does not move her bowels very often, last BM 4-5 days ago, which she says is normal for her. In ED, she presented hypertensive 161/26, otherwise vital signs within normal limits, SpO2 > 95% on room air. Labs significant for WBC 12.99, magnesium 1.6, T bili 1.1. CT A/P showed fat stranding and skin thickening with few small subcutaneous gas within the left posterior as well without evidence of osteomyelitis. There is also a short segment of thickened small bowel in the left LLQ consistent with nonspecific enteritis with borderline small bowel distention possibly representing a transition point for partial SBO. Incidental 5.8 cm left ovarian cyst was visualized. CT A/P notes a calcified density within the vagina possibly calcified tampon or foreign body, however its been confirmed this is being mistaken for a purewhick Catheter placed in ED. Head and C-spine CT performed due to fall, without evidence of acute process, fracture, subluxation. CXR showed no acute process, stable blunting of the left lateral costophrenic sulcus. Admission Exam Per Admitting Provider General: awake, alert, no apparent distress Head: Normocephalic, atraumatic ENT: PERRL, EOMI, no pharyngeal exudate, mucous membranes moist Chest: Clear to auscultation, on room air, no adventitious breath sounds Cardiac: Regular rate and rhythm, no murmur, no JVD, normal peripheral pulses, good capillary refill Abdominal: NABS x 4 quadrants, soft, nontender to palpation, no rebound, guarding or tenderness Extremities: Normal inspection, no peripheral edema or erythema, calfs nontender to palpation Psych: Normal mood and affect Neuro: AAO x 3, strength intact bilaterally and rated 5/5, no motor deficits, speech is clear, no peripheral sensory deficits Skin: Large, black necrotic appearing decubitus ulcer on patient's sacrum, as well as lower extremity erythema with dressings in place. 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 Discharge Data Allergies Allergy/AdvReac Type Severity Reaction Status Date / Time mushroom Allergy Severe Swelling Verified 04/26/22 09:58 of Lip/Tongue/Throat Sulfa (Sulfonamide Allergy Severe ALL OVER Verified 04/26/22 09:58 Antibiotics) BODY SWELLING naproxen Allergy Unknown Unknown Verified 04/26/22 09:58 Consultations 04/23/22 19:18 ED Decision to Admit Stat 04/23/22 20:49 Consult Plastic Surgery Routine 04/23/22 22:41 Consult General Surgery Routine Debridement Completed 04/26/22 w/o complication Procedures Performed Operation Date: 04/26/22 10:10 Actual Procedures p Debridement Sacral Ulcer - Jacob Mirza MD Ordered Studies 04/23/22 15:43 CT abd pelvis IV con only Stat 04/23/22 15:44 CT cervical spine wo con Stat CT head/brain wo con Stat Hospital Course (1) Decubitus ulcer of sacral area: Sia is a 77 year old female with history of MS a/w immobility, hypertension, morbid obesity, and pressure ulcers of the feet who was admitted 04/23 for a sacral pressure ulcer and small bowel obstruction. Patient is s/p surgical debridement of her sacral ulcer. - Patient received surgical debridement of decubitus ulcer 04/26, wound cultures + for proteus mirabilis. - Abx mgmt w/ Keflex 500 mg TID, day 12/30 (recommending 10 days outpatient for a 14 day course) - Patient is chronically immobile 2/2 MS - Patient is medically stable for discharge - OOA did not discourage return home. HH can see patient Monday w/in 48 hours of discharge, appointment scheduled. Patient will require frequent repositioning and ongoing management of sacral decubitus ulcer. Wound vac placed, script signed 04/30/22. Insurance approved. (2) SBO (small bowel obstruction): - CT on admission indicated partial, small bowel obstruction - Patient was advanced to regular diet 04/26 and achieved a large bowel movement the same day - Patient continues to consume regular diet without adverse event - Bowel movements and flatus continues without abdominal pain, nausea, or emesis (3) Multiple sclerosis: - Chronic, stable on current management. - Diazepam 7 mg for spasms, continue 2 + 5 mg schedule at home. - Patient is bed/wheelchair bound at baseline. 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 (5) Tinea pedis: - Ketoconazole to feet bilaterally. - Monitor LFTs. (6) HTN (hypertension): - Known hx, not currently on medication - Possible antihypertensive needed SBP 130s-170s - Will have patient keep home BP logs and follow up with her PCP. (7) Ovarian cyst: - New, 5.8 cm left ovarian cyst found via CT, pathologic given her age. 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 Discharge Plan Discharge Items Patient Disposition: Home - Home Health Services Reason For Visit: BACK DECUBITUS, ULCER, PARTIAL SBO Discharge Diagnosis: Decubitus Ulcer (ongoing), Partial SBO (resolved) Condition on Discharge: Good Health Concerns: Multiple Sclerosis Bilateral LE Edema Elevated Blood Pressure Goals: Improvement of sacral decubitus ulcer w/ prevention of infection. Management of spasms associated with MS. Close follow up on patients elevated blood pressure. Activity: Resume your previous activity Activity Comment: Please ensure that you change positions every 2-3 hours for ulcer healing Lifting: Gradually increase as tolerated Bathing: No limitations Sexual Activity: When tolerated Exercise/Sports: As tolerated Weightbearing: Full weightbearing Non-emergency contact: Primary Care Provider Call non-emergency contact if: you have any medication questions, your symptoms worsen, your pain is not controlled, you have a fever, your wound has increased redness and your wound has increased drainage Follow-up/Referrals: Alf Velázquez MD [Primary Care Provider] - 05/11/22 10:10 am (APPT IS AT [facility] [place]; NEXT TO [facility] WITH JONNA LUKE PA-C) Sayda Walls DO [Resident] - Diet: Regular Addtl Attending Provider Instructions: Ms. Grissom, Kevin were admitted to the hospital for management of a pressure wound on your left upper buttocks. You were treated with surgical debridement of the wound and antibiotics (Keflex) that were specific to the bacteria found within your wound. A discharge summary will be sent to your primary care physician to ensure continuity of care. Please bring this discharge summary with you to your next office appointment so that your provider can review it at that time. Follow-up appointments: * Make a follow-up appointment with your PCP within the next week. It is very important that you follow up with them shortly after discharge from the hospital. As discussed while you were in the hospital if you are unable to get an appointment within [address] Velázquez, I am willing to see you outpatient at the [facility]. We have requested a follow-up appointment with your primary care physician within one week of discharge. Please call their office if you do not hear from them. * Home Health will be coming to help you care for your wound vac on Monday. Medications: * Your medication list has been reviewed and reconciled upon discharge to ensure accuracy and continuity of care. An updated list of all your medications is included with your hospital discharge paperwork. Please review this list closely, and make note of any changes. * We sent a new medication called Keflex (Cephalexin) to your pharmacy. Take Keflex 500 mg (1 tablet) three times a day for ten days. * If you have any issues filling these prescriptions, please call [phone] and ask to leave a message for Dr. Walls. * Take your medications as instructed; do not skip a dose of your medicines. Make sure all of your doctors know every medicine you are taking (including [id number] medicines, vitamins, and supplements). * Call your primary care provider before taking any new medicines (including over- the-counter medicines, vitamins, and supplements), because some of these may interact with your current medications, or may make your symptoms worse. * Tell your primary care provider if you cannot afford your medications. Contact your Primary Care Provider if you experience: * Increased drainage from the wound * Increased pain at the wound site * Abdominal pain or bloating * Difficulty following your treatment plan or taking medications Call 911 or go to the emergency department if you experience: * Sudden, severe abdominal pain or nausea/vomiting * Severe chest pain, or chest pain that radiates (moves) to your jaw or arm * Sudden, severe shortness of breath or difficulty breathing It was a pleasure to be a part of your care, Dr. Sayda Walls Pending Studies at Discharge: No Stand-Alone Forms: [facility], Smoking Cessation Medications and DC Order Prescriptions: New cephalexin 500 mg Capsule 500 mg PO TID 10 Days Qty: 30 0RF ketoconazole 2 % Cream 1 applic EXT DAILY PRN (Reason: Tinea Pedis) 35 Days Qty: 1 1RF metronidazole 500 mg tablet 500 mg PO TID 10 Days Qty: 30 0RF Continued diazepam 5 mg Tablet 5 mg PO DAILY Rx Instructions: TOTAL DOSE 7 MG--TAKES WITH 2 MG TAB. diazepam 2 mg tablet 2 mg PO DAILY Rx Instructions: TOTAL DOSE 7 MG--TAKES WITH 5 MG TAB. Probiotic 10 billion cell Capsule 20,000 mmu cells PO DAILY Rx Instructions: TAKES 2 CAPS DAILY Discontinued phenazopyridine [Azo] 95 mg Tablet 95 mg PO DIRECTED PRN (Reason: OCCASIONALLY, WHEN NEEDED) Discharge Orders: Discharge Order (Routine); Ordered 05/02/22 Ordered By: Sayda Walls Admission Data Admit Date/Time: 04/23/22 20:49 Attending Provider: Dipak Forbes Admit Provider: Enio Natarajan Primary Care Provider: Alf Velázquez Other Providers: Enio Natarajan ; Mikel Reina ; [employer] ; [employer]. Other Interventions: Discharge Summary Assessment (RN) Last Done: 05/02/22 15:19 Supervising Physician Co-Signing Physician Notes I personally examined the patient and verified all norman points of history and exam, discussed case, and agree with decision making with Dr Walls. feeling good wants to go home. wound vac getting changed, home nursing set up. 1. Sacral decubitus ulcer. s/p debridement on 04/26. Cultures growing proteus. Keflex TID x 14 days. PO flagyl as well. home on wound vac/PO abx/wound care 2. SBO. CT with partial SBO with enterocolitis. Resolved. 3. MS. Diazepam 7mg PRN spasm. 4. New ovarian cyst. 5.8cm left ovarian cyst. Needs outpatient follow up with gyne. Dispo: Medically stable for discharge. otherwise as above Plan for her to follow up post-discharge with PSH (Dr. Walls at [facility] or Dr. Carlyle Velázquez at [facility]). Resident Activity Tracking Resident Involvement: Resident Care Provided Care Provided: Adult Hospital Medicine
[2022-05-02] MEDS: ADVANCED PROBIOTIC 1250 MG CAPSULE PO SCH (08:44)
[2022-05-02] MEDS: cephALEXin 500 MG CAP PO SCH ×2 (08:44→14:46)
--- NOTE | 2022-05-09 15:01 | Coding Query ---
DEBRIDEMENT DOCUMENTATION To promote full compliance with coding requirements relating to patient care, physician participation is requested in all cases of continuous improvement coordinator uncertainty. Please assist us with the question(s) below * regarding the debridement of sacral decubitus.. Please place an X in the parenthesis (x). If other, please document the finding: Type of Debridement: ( x) Excisional Debridement- Cutting away necrotic, devitalized tissue or slough to the level of viable tissue using a sharp instrument (i.e. scalpel, scissors, etc.) ( ) Non Excisional Debridement- The removal of necrotic, devitalized tissue or slough by means of scraping, mechanical brushing, flushing, or washing (i.e. irrigation,whirlpool);minor removal of loose fragments. ( ) Other (please specify): Instrument Used: ( x) Scissors (x ) Scalpel ( ) Curette ( ) Other (please specify): Depth of Debridement: ( ) Skin ( ) Skin and Subcutaneous Tissue ( ) Skin, Subcutaneous Tissue and Muscle (x ) Skin, Subcutaneous Tissue, Muscle and Bone ( ) Other (please specify): Please Specify the Size of Debridement in cm2: Thank you TIM Yoo CCS
== END 2022-05-02 16:45 | disposition home health service (06) | DRG 580 ==
LOC: ED 14:19 → 2W 20:49 → SUATTDRO 20:49 → 2W 22:24 → 3E 04-30 15:33

== ENCOUNTER 2022-05-04 14:10 | Inpatient (IN) ==
[2022-05-04 15:27] LABS: Basophils # (auto) 0.05 K/uL (0-0.2); Basophils % (auto) 0.4 %; Eosinophils # (auto) 0.02 K/uL (0-0.50); Eosinophils % (auto) 0.1 %; Hematocrit (blood only) 38.1 % (34.1-44.9); Hemoglobin 12.4 g/dl (12.0-16.0); Immature Granulocytes # (auto) 0.07 K/uL (0.00-0.02); Immature Granulocytes % (auto) 0.5 %; Lymphocytes # (auto) 0.87 K/uL (1.2-3.4); Lymphocytes % (auto) 6.4 %; Mean Corpuscular Hemoglobin 30.9 pg (25.0-34.0); Mean Corpuscular Hgb Conc 32.5 g/dL (32.0-36.0); Mean Platelet Volume 8.4 fL (9.4-12.3); Monocytes # (auto) 0.95 K/uL (0.24-0.82); Neutrophils # (auto) 11.65 K/uL (1.4-6.5); Neutrophils % (auto) 85.6 %; Platelet Count 406 K/uL (130-400); RDW Coefficient of Variation 14.9 % (11.5-14.5); RDW Standard Deviation 52.5 fL (36.4-46.3); Red Blood Count 4.01 M/uL (3.93-5.22); White Blood Count 13.61 K/ul (4.8-10.8)
[2022-05-04] MEDS ORDERED: VANCOMYCIN HCL 1,750 MG in SODIUM CHLORIDE 0.9% 500 ML IV ONE (15:49)
[2022-05-04] MEDS ORDERED: PIPERACILLIN/TAZOBACTAM 4.5 GM/120 ML BAG IV ONE (15:49)
[2022-05-04] MEDS ORDERED: VANCOMYCIN CONSULT ACTIVE PRN (15:49)
--- NOTE | 2022-05-04 15:49 | Emergency Department Note ---
History of Present Illness General Chief complaint: Wound Stated complaint: wound care Time Seen by Provider: 05/04/22 14:13 History of Present Illness Provider complaint: Wounds Associated symptoms: no chest pain, no fever/chills, no headaches, no nausea/vomiting or no shortness of breath 77-year-old female presents emergency department for wounds on her sacral area and on her left lower extremity. Patient states she was recently in the hospital and was discharged after an debridement of these wounds. Patient reports that her wound VAC stopped working today and her home health care nurse referred her to the emergency department for placement into help with her wounds. Patient denies any fevers. No chest pain difficulty breathing abdominal pain nausea vomiting or diarrhea. Home Medications Medication Instructions Recorded Confirmed Type diazepam 5 mg tablet 5 mg PO DAILY 06/20/18 05/04/22 History Lactobacillus acidophilus 10 20,000 mmu cells PO DAILY 04/23/22 05/04/22 History billion cell capsule (Probiotic) diazepam 2 mg tablet 2 mg PO DAILY 04/23/22 05/04/22 History cephalexin 500 mg capsule 500 mg PO TID 10 days #30 caps 05/02/22 05/04/22 Rx ketoconazole 2 % topical cream 1 applic EXT DAILY PRN Tinea Pedis 05/02/22 05/04/22 Rx 35 days #1 units metronidazole 500 mg tablet 500 mg PO TID Wound 10 days #30 05/02/22 05/04/22 Rx tabs Allergies Allergy/AdvReac Type Severity Reaction Status Date / Time mushroom Allergy Severe Swelling Verified 04/26/22 09:58 of Lip/Tongue/Throat Sulfa (Sulfonamide Allergy Severe ALL OVER Verified 04/26/22 09:58 Antibiotics) BODY SWELLING naproxen Allergy Unknown Unknown Verified 04/26/22 09:58 Past Med/Surg History Medical History (Updated 05/04/22 @ 16:32 by Lisa Willis PA-C) Multiple sclerosis Obesity Rotator cuff arthropathy of right shoulder Surgical History History of cataract surgery left cataract sx received 4mg versed and 100 fentanyl without apparent complications. 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 Beliefs That Will Affect Care: None marital status: Current Living Situation: Spouse How many Children do You have: 2 Feels Safe at Home: Yes Assistive Devices: Hospital Bed and Scooter/Electric Scooter Review of Systems A total of 10 systems reviewed and were otherwise negative Physical Exam Vital Signs Vital Signs - 24 hr 05/04/22 14:18 05/04/22 14:57 05/04/22 16:05 Temperature 36.7 C Temperature Source Oral Pulse Rate 84 Pulse Rate [Apical] 84 Respiratory Rate 18 18 Respiratory Effort / Characteristics Non-Labored Spontaneous Non-Labored Respiratory Depth Normal Normal Blood Pressure 140/80 Blood Pressure [Left Arm] 155/78 H Blood Pressure Mean 100 Blood Pressure Mean [Left Arm] 103 Blood Pressure Position Lying Blood Pressure Position [Left Arm] Lying Pulse Oximetry 95 97 98 Oxygen Delivery Method Room Air Room Air Room Air Sepsis Recent Fever Within 48 Hours No Sepsis New/Unexplained Change in Mental Status No Sepsis Action Taken by Nursing No Action Required HENT: Exam performed. -Head: Normocephalic and atraumatic. -Right Ear: External ear normal. No mastoid tenderness. -Left Ear: External ear normal. No mastoid tenderness. -Mouth/Throat: The oropharynx is clear and moist. No trismus in the jaw. No dental abscesses or uvula swelling. No oropharyngeal exudate or tonsillar abscesses. EYES: Conjunctivae and EOM are normal. Pupils are equal, round, and reactive to light. Right eye exhibits no discharge. Left eye exhibits no discharge. No scleral icterus. NECK: Normal range of motion. Neck supple. No JVD present. No spinous process tenderness present. CV: Normal rate, regular rhythm, normal heart sounds and intact distal pulses. Palpable radial pulses bue. PULM/CHEST: Effort normal and breath sounds normal. No respiratory distress. No stridor. She has no wheezes. She has no rales. -Chest Wall: She exhibits no tenderness. ABD: The abdomen is soft. MUSC: Lymphedema of the bilateral lower extremities. LYMPH: No cervical adenopathy. SKIN: Right lower extremity wound is covered in a dirty dressing that is saturated with purulent discharge. Erythema and warmth over the right lower extremity a large wound over the lateral aspect with purulent foul-smelling drainage. The decubitus ulcer on the patient's sacrum has some mild discharge coming from it however it looks better than the previous emergency visit on April 23, 2022 Course Course 1413: The patient was evaluated in room B3. A complete history and physical exam was performed Cardiac monitoring: An order was placed for continuous cardiac monitoring. The monitor shows a rate of 80 with sinus rhythm EMR reviewed. Patient was admitted from April 23, 2022 until May 02, 2022. The patient has surgical debridement for the decubitus ulcer by Dr. Mirza on April 26, 2022. 1604: Vital signs stable. Labs show leukocytosis of 13. It is thought that the patient is having difficulty taking care of these wounds at home and the patient does need placement. Case management Chu met with the patient for possible placement.Patient empirically treated with Zosyn and vancomycin. [facility]. Discussed with Lisa and will admit to Dr. Adams team. Administered Medications Discontinued Medications Piperacillin Sod/Tazobactam Sod (Zosyn) 4.5 gm in 120 mls @ 240 mls/hr IV NOW ONE Stop: 05/04/22 16:18 Last Admin: 05/04/22 16:00 Dose: 240 mls/hr Documented By: CARLITA Medical Decision Making Laboratory Data Result diagrams: 05/04/22 15:13 05/04/22 15:13 Lab Results 05/04/22 05/04/22 05/04/22 Range/Units 15:13 15:13 15:13 WBC 13.61 H (4.8-10.8) K/ul RBC 4.01 (3.93-5.22) M/uL Hgb 12.4 (12.0-16.0) g/dl Hct 38.1 (34.1-44.9) % MCV 95.0 (80.0-100.0) fL MCH 30.9 (25.0-34.0) pg MCHC 32.5 (32.0-36.0) g/dL RDW Std Deviation 52.5 H (36.4-46.3) fL RDW Coeff of Gregor 14.9 H (11.5-14.5) % Plt Count 406 H (130-400) K/uL MPV 8.4 L (9.4-12.3) fL Immature Gran % (Auto) 0.5 % Neut % (Auto) 85.6 % Lymph % (Auto) 6.4 % [place] % (Auto) 7.0 % Eos % (Auto) 0.1 % Baso % (Auto) 0.4 % Neut # (Auto) 11.65 H (1.4-6.5) K/uL Lymph # (Auto) 0.87 L (1.2-3.4) K/uL [place] # (Auto) 0.95 H (0.24-0.82) K/uL Eos # (Auto) 0.02 (0-0.50) K/uL Baso # (Auto) 0.05 (0-0.2) K/uL Immature Gran # (Auto) 0.07 H (0.00-0.02) K/uL Sodium 138 (136-145) mmol/L Potassium 4.4 (3.5-5.1) mmol/L Chloride 100 (98-107) mmol/L Carbon Dioxide 30 (21-32) mmol/L Anion Gap 8 (3-11) BUN 29 H (6-23) mg/dl Creatinine 1.29 H (0.6-1.2) mg/dl Est Cr Clr Drug Dosing 38.3 ml/min Est GFR ( Amer) 45.6 ml/min Est GFR (Non-Af Amer) 39.4 ml/min BUN/Creatinine Ratio 22.5 H (10-20) Glucose 105 H (70-99(Fasting)) mg/dl Calcium 9.4 (8.5-10.1) mg/dl Magnesium 2.1 (1.7-2.4) mg/dl SARS-CoV-2, RNA, NAAT NEGATIVE (NEGATIVE) MDM Narrative 1413: The patient was evaluated in room B3. A complete history and physical exam was performed Cardiac monitoring: An order was placed for continuous cardiac monitoring. The monitor shows a rate of 80 with sinus rhythm EMR reviewed. Patient was admitted from April 23, 2022 until May 02, 2022. The patient has surgical debridement for the decubitus ulcer by Dr. Mirza on April 26, 2022. 1604: Vital signs stable. Labs show leukocytosis of 13. It is thought that the patient is having difficulty taking care of these wounds at home and the patient does need placement. Case management Chu met with the patient for possible placement.Patient empirically treated with Zosyn and vancomycin. Patient will be admitted to the [facility] hospitalist service. Discussed with Lisa and will admit to Dr. Adams team. Impression & Plan Stage III pressure ulcer of right heel, Decubitus ulcer of sacral area, Multiple sclerosis Discharge Plan Visit Data Chief Complaint: Wound Stated Complaint: wound care ED Provider: Harjit Zepeda Discharge Problem: Stage III pressure ulcer of right heel, Decubitus ulcer of sacral area, Multiple sclerosis Patient Disposition: Being Evaluated by Hospitalist Forms Stand Alone Forms: My [facility] Prescriptions Prescriptions: No Action diazepam 5 mg Tablet 5 mg PO DAILY Rx Instructions: TOTAL DOSE 7 MG--TAKES WITH 2 MG TAB. diazepam 2 mg tablet 2 mg PO DAILY Rx Instructions: TOTAL DOSE 7 MG--TAKES WITH 5 MG TAB. Probiotic 10 billion cell Capsule 20,000 mmu cells PO DAILY Rx Instructions: TAKES 2 CAPS DAILY cephalexin 500 mg Capsule 500 mg PO TID 10 Days Qty: 30 0RF ketoconazole 2 % Cream 1 applic EXT DAILY PRN (Reason: Tinea Pedis) 35 Days Qty: 1 1RF metronidazole 500 mg tablet 500 mg PO TID 10 Days Qty: 30 0RF Referrals Referrals: Alf Velázquez MD [Primary Care Provider] -
[2022-05-04 15:54] LABS: BUN Creatinine Ratio 22.5 (10-20); Calcium 9.4 mg/dl (8.5-10.1); Creatinine Clr Calc Pharmacy 38.3 ml/min; Est GFR (African American) 45.6 ml/min; Est GFR (Non-African American) 39.4 ml/min; Magnesium 2.1 mg/dl (1.7-2.4); Potassium 4.4 mmol/L (3.5-5.1)
--- NOTE | 2022-05-04 16:08 | History & Physical Report ---
Date of Service May 04, 2022 Assessment & Plan (1) Decubitus ulcer of sacral area: Plan: - Surgical debridement on 04/26, wound cultures + for proteus mirabilis. - She was treated with vancomycin and Zosyn initially, then transitioned to Rocephin with Flagyl for several days per pharmacy recommendations. Eventually D/c'd on 05/02 with Keflex and FLagy to be taken TID x 10 more days. - She has been compliant with antibiotics since discharge. She is without fever or chills or pain at site of wound. - She broke her wound VAC yesterday at home when she hung it over an armrest. - Based on previous culture, Proteus was pansensitive, also grew bacterioides fragilis. - She received Vanco and Zosyn in the ED. To cover for anaerobes, will place on Unasyn for now. - Will consult wound care, PT/OT. Patient likely will need to be placed at a facility at least short-term. (2) Wound of right lower extremity: Plan: - Right lower leg appears to have developed an open wound on top of the chronic b/l skin changes previously seen on last admission. - Wound care and antibiotics as above. (3) Cellulitis: Plan: - ABX and wound care as above. (4) CARL (acute kidney injury): Plan: - Cr 1.29, baseline 0.6 - 0.7. - Suspect due to cellulitic infection of sacral wound ans right elf, as well as poor po intake as reported by patient. - Maintenance IVF with LRs at 135 cc/hr. - Avoid nephrotoxins and renally dose meds as able. (5) Multiple sclerosis: Plan: - Continue diazepam 7 gm daily for spasms. - Wheelchair bound at baseline. (6) HTN (hypertension): Plan: - 155/78, was consistently hypertensive to this degree during previous admission. D/c'd 05/02 with recommendations to follow up with PCP. - Continue to monitor while in hospital and consider adding medication prior to d/c. (7) Tinea pedis: Plan: - Continue Ketoconazole prn. Plan - Admit to med/surg. - SCDs and Lovenox for VTE ppx. - Full Code. History of Present Illness Chief Complaint: Patient presents 2 days after discharge due to broken wound VAC for sacral decubitus ulcer Primary Care Provider: Alf Velázquez MD Sia Grissom is a 77-year-old female the past medical history significant for MS and recent hospitalization for sacral decubitus ulcer and SBO from 04/23 - 05/02 who presents today with worsening sacral and right lower extremity wounds. Patient was originally admitted on 04/23 for the wound and given the extent of her sacral wound, she underwent surgical debridement on 04/26, wound cultures growing Proteus mirabilis. She was discharged just 2 days ago on 05/04 with a wound VAC in place and a prescription for Keflex 500 mg 3 times daily and Flagyl 500 mg 3 times daily, both with 10 days left. She has been taking these as prescribed, last dose taken this morning. Office of aging was called by the ED on initial presentation on 04/23, they had not discouraged return home, as long as home health will be able to see patient. Today was the first day home health saw patient, apparently on their assessment her wound VAC and not been working in her wound appeared infected, therefore they recommended she present to the ED for further evaluation. Patient tells me that yesterday her wound VAC broke when she slung it over a chair. She is without complaint, no fever/chills, weakness, myalgias, chest pain, shortness breath, abdominal pain, nausea, vomiting. She is not having any pain outside of her sacral wound. Today, she presents with a BP of 155/78, otherwise vital signs within normal limits. Labs significant for WBC of 13.61 with a left shift, BUN 29 and creatinine 1.29, baseline 0.60.7. Labs otherwise wnl. Allergies Allergy/AdvReac Type Severity Reaction Status Date / Time mushroom Allergy Severe Swelling Verified 04/26/22 09:58 of Lip/Tongue/Throat Sulfa (Sulfonamide Allergy Severe ALL OVER Verified 04/26/22 09:58 Antibiotics) BODY SWELLING naproxen Allergy Unknown Unknown Verified 04/26/22 09:58 Home Medications Medication Instructions Recorded Confirmed Type diazepam 5 mg tablet 5 mg PO DAILY 06/20/18 05/04/22 History Lactobacillus acidophilus 10 20,000 mmu cells PO DAILY 04/23/22 05/04/22 History billion cell capsule (Probiotic) diazepam 2 mg tablet 2 mg PO DAILY 04/23/22 05/04/22 History cephalexin 500 mg capsule 500 mg PO TID 10 days #30 caps 05/02/22 05/04/22 Rx ketoconazole 2 % topical cream 1 applic EXT DAILY PRN Tinea Pedis 05/02/22 05/04/22 Rx 35 days #1 units metronidazole 500 mg tablet 500 mg PO TID Wound 10 days #30 05/02/22 05/04/22 Rx tabs Past Med/Surg History Medical History (Updated 05/04/22 @ 17:15 by Lisa Willis PA-C) Multiple sclerosis Obesity Rotator cuff arthropathy of right shoulder Surgical History History of cataract surgery left cataract sx received 4mg versed and 100 fentanyl without apparent complications. History of tonsillectomy Family History Other Family history non-contributory Social History Smoking Status: Former smoker Tobacco Type: Cigarettes Second Hand Exposure: No; Hx Alcohol Use: Yes Alcohol type: beer Hx Substance Use: No Preferred Language: Armenian Communication Ability: Effective Visual Impairment: Partially Limited Collection Systems Consultant Required: No Beliefs That Will Affect Care: None marital status: Current Living Situation: Spouse How many Children do You have: 2 Feels Safe at Home: Yes Assistive Devices: Hospital Bed and Scooter/Electric Scooter Review of Systems Review of Systems: Constitutional: No fever/chills, weakness, fatigue, myalgias, anorexia, night sweats Eyes: No diplopia, no worsening or blurred vision ENT: normal hearing, no trouble swallowing Respiratory: No cough, sputum, dyspnea at rest or on exertion Cardiovascular: No chest pain, tightness or palpitations Abdomen: No pain, nausea, vomiting, diarrhea or constipation : Denies dysuria, hematuria, increased urgency/frequency, urinary retention Musculoskeletal: No joint pain, calf pain, swelling Neurologic: No weakness, numbness/tingling, or balance problems Psychiatric: No anxiety or depression Skin: No rash or itch Physical Exam Physical Exam: General: awake, alert, no apparent distress Head: Normocephalic, atraumatic ENT: PERRL, EOMI, no pharyngeal exudate, mucous membranes moist Chest: Clear to auscultation, on room air, no adventitious breath sounds Cardiac: Regular rate and rhythm, no murmur, no JVD, normal peripheral pulses, good capillary refill Abdominal: NABS x 4 quadrants, soft, nontender to palpation, no rebound, guarding or tenderness Extremities: Normal inspection, no peripheral edema or erythema, calfs nontender to palpation Psych: Normal mood and affect Neuro: AAO x 3, strength intact bilaterally and rated 5/5, no motor deficits, speech is clear, no peripheral sensory deficits Skin: Chronic skin breakdown on bilateral lower extremities with erythema; right lower leg bandaged shortly before my exam, however while briefly on doing it, there is an oval-shaped open wound on the right lateral aspect of the lower leg Results & Data Results & [facility] Vital Signs (Past 12 Hours) Vital Signs Temp Pulse Resp BP Pulse Ox O2 Del Method 05/04/22 14:57 97 Room Air 05/04/22 14:18 36.7 C 84 18 140/80 95 Room Air Laboratory Results Abnormal lab results 05/04/22 05/04/22 Range/Units 15:13 15:13 WBC 13.61 H (4.8-10.8) K/ul RDW Std Deviation 52.5 H (36.4-46.3) fL RDW Coeff of Gregor 14.9 H (11.5-14.5) % Plt Count 406 H (130-400) K/uL MPV 8.4 L (9.4-12.3) fL Neut # (Auto) 11.65 H (1.4-6.5) K/uL Lymph # (Auto) 0.87 L (1.2-3.4) K/uL [place] # (Auto) 0.95 H (0.24-0.82) K/uL Immature Gran # (Auto) 0.07 H (0.00-0.02) K/uL BUN 29 H (6-23) mg/dl Creatinine 1.29 H (0.6-1.2) mg/dl BUN/Creatinine Ratio 22.5 H (10-20) Glucose 105 H (70-99(Fasting)) mg/dl Code Status & VTE Plan Code Status Full Code. Supervising Physician Co-Signing Physician Notes Patient seen and examined, chart reviewed, case discussed with Lisa Willis PA-C and I agree with the assessment and plan as above except as otherwise noted Labs and images reviewed Sia is a 77-year-old female with a history of SBO, decubitus ulcers of the sacrum, hypertension, pulmonary nodules, multiple sclerosis, and weakness who was discharged from [facility] 2 days ago after admission for a fall while transferring and treatment for sacral wound with cultures positive for Proteus mirabilis, and he returns after the recommendation of home health for concerns of worsening wound infection and failure to thrive. Patient has a wound VAC in place and was discharged on Keflex/Flagyl. She has a history of being bed/wheelchair bound at baseline due to multiple sclerosis, on diazepam scheduled for spasms. On admission she is normotensive with a mild leukocytosis, afebrile, and without tachycardia. Breathing comfortably, NAD. HR RRR. RLE dressing in place, underlying wound w/ purulent dc, sacral decub ulcer with +light yellow discharge. Cellulitis, RLE + with sacral decubitus ulcer Prior culture polymicrobial with anaerobes. Had been treated on Keflex/Flagyl, had been taking medications as prescribed per patient. Proteus is pansensitive. Converted to Unasyn on admission. No penicillin allergy. Wound care consulted Patient with weakness and failure to thrive at home. COVID-negative CARL versus prerenal azotemia Baseline creatinine less than 1. Acutely elevated to 1.29 on admission. BUN/creatinine ratio greater than 20. Poor p.o. intake, failure to thrive at home Receiving fluids and antibiotics as noted Trend daily, renally adjust medications as needed Weakness, global without focal deficit The setting of cellulitis and poor p.o. intake At prior discharge was to get wound VAC through [facility] once approved, was discussed with office of aging who felt patient was okay to return home as long as she had home health. Patient previously refused PT/OT. She is wheelchair-bound at home, and reported she felt confident with transfers. She has had worsening since discharge home as noted above, recommend reevaluation by PT/OT PG Care Time/CCT Total # of Minutes Spent Total Time Spent with Patient: Total time spent is greater than 50% in coordination of care (as documented) at patient's floor/unit and/or counseling patient: Coding Level of Care Code 89259 Initial Inpt Care Lvl 2 Diagnoses Decubitus ulcer of sacral area L89.159 Wound of right lower extremity S81.801A Cellulitis L03.90 CARL (acute kidney injury) N17.9 Multiple sclerosis G35 HTN (hypertension) I10 Tinea pedis B35.3
[2022-05-04] MEDS ORDERED: KETOCONAZOLE 2% CR 15 GM TUBE EXT PRN (20:45)
[2022-05-04] MEDS ORDERED: POLYETHYLENE (MIRALAX) 17 GM PACK PO PRN (20:45)
[2022-05-04] MEDS ORDERED: ONDANSETRON INJ 2 MG/ML 2 ML VIAL IV PRN (20:45)
[2022-05-04] MEDS: ENOXAPARIN INJ 40 MG/0.4 ML SYR SQ SCH (22:39)
[2022-05-04] MEDS: AMPICILLIN/SULBACTAM SOD 3,000 MG in 0.9 % SODIUM CHLORIDE 100 ML IV SCH (22:39)
[2022-05-04] MEDS: LACTATED RINGER'S 1,000 ML IV SCH (22:40)
[2022-05-05] MEDS: LACTATED RINGER'S 1,000 ML IV SCH (04:16)
[2022-05-05] MEDS: AMPICILLIN/SULBACTAM SOD 3,000 MG in 0.9 % SODIUM CHLORIDE 100 ML IV SCH ×4 (04:16→20:26)
--- NOTE | 2022-05-05 07:20 | Hospitalist Progress Note ---
Date of Service May 05, 2022 Assessment & Plan (1) Decubitus ulcer of sacral area: Plan: - Surgical debridement on 04/26, wound cultures + for proteus mirabilis. - She was treated with vancomycin and Zosyn initially, then transitioned to Rocephin with Flagyl for several days per pharmacy recommendations. Eventually D/c'd on 05/02 with Keflex and FLagy to be taken TID x 10 more days. - She has been compliant with antibiotics since discharge. She is without fever or chills or pain at site of wound. - She broke her wound VAC yesterday at home when she hung it over an armrest. - Based on previous culture, Proteus was pansensitive, also grew bacterioides fragilis. - She received Vanco and Zosyn in the ED. To cover for anaerobes, will place on Unasyn for now. Continue abx to 05/12/22, longer if needed on clinical reassessment - PT/OT pending - Wound care consulted. Recommend packing today, wound vac placement tomorrow as no wound care available over the weekend for change. Appreciate recs. -Anticipate short term placement reqs (2) Wound of right lower extremity: Plan: - Right lower leg appears to have developed an open wound on top of the chronic b/l skin changes previously seen on last admission. - Wound care and antibiotics as above. (3) Cellulitis: Plan: - ABX and wound care as above. (4) CARL (acute kidney injury): Plan: - Cr 1.29 on admission, baseline 0.6 - 0.7. - Suspect due to cellulitic infection of sacral wound ans right elf, as well as poor po intake as reported by patient. - Maintenance IVF with LRs at 125 cc/hr. Cr normalized, fluids discontinued - Avoid nephrotoxins and renally dose meds as able. - Resolved (5) Multiple sclerosis: Plan: - Continue diazepam 7 gm daily for spasms. - Wheelchair bound at baseline. (6) HTN (hypertension): Plan: - 155/78, was consistently hypertensive to this degree during previous admission. D/c'd 05/02 with recommendations to follow up with PCP. - Continue to monitor while in hospital and consider adding medication prior to d/c. Normotensive 05/05 (7) Tinea pedis: Plan: - Continue Ketoconazole prn. Plan - Admit to med/surg. - SCDs and Lovenox for VTE ppx. - Full Code. Admission and Anticipated Discharge Date Admission Date: May 04, 2022 Subjective Seen at bedside this morning. Does have some weeping from her right lower leg, but improved from prior. Her sacral wound continues to be painful to her, feels about normal and at its regular baseline. Has not been packed yet or had wound VAC replaced. Patient denies fever, chills, sweats, lightheadedness, dizziness, chest pain, shortness of breath overnight. Review of Systems Review of Systems: All systems reviewed & are unremarkable except as noted in Subjective Physical Exam Physical Exam: General: A&Ox3. NAD. Cooperative. HEENT: Atraumatic, normocephalic. And hearing grossly intact. Pulm: CTAB A&P. -wheezes, -rales, -rhonchi. Symmetrical chest rise. No increase in work of breathing. No respiratory distress. Cardiac: RRR, -mrg. Radial pulses intact and symmetrical. Abdominal: Nontender, nondistended, soft. BS present. Skin: Right lower extremity with anterior ulceration, some light clear discharge without expanding erythema. Dressing in place C/D/I. Bilateral lower extremity chronic venous changes/ichthyosis. Sacrum with deep full-thickness ulceration, scant drainage. Pending wound VAC placement Results & Data Results & Data ([facility]) Vital Signs (Past 12 Hours) Vital Signs Temp Pulse Pulse Resp BP BP Pulse Ox 05/05/22 07:01 36.8 C 68 16 112/62 93 05/04/22 20:50 36.7 C 78 20 126/62 94 05/04/22 19:39 80 16 140/60 95 O2 Del Method 05/05/22 07:01 Room Air 05/04/22 20:50 Room Air 05/04/22 19:39 PG Care Time/CCT Total # of Minutes Spent Total Time Spent with Patient: Total time spent is greater than 50% in coordination of care (as documented) at patient's floor/unit and/or counseling patient: Coding Level of Care Code 23966 Subseq Hosp Care Lvl 2 Diagnoses Decubitus ulcer of sacral area L89.159 Wound of right lower extremity S81.801A Cellulitis L03.90 CARL (acute kidney injury) N17.9 Multiple sclerosis G35 HTN (hypertension) I10 Tinea pedis B35.3
[2022-05-05] MEDS: diazePAM 2 MG TABLET PO SCH (08:34)
[2022-05-05] MEDS: ADVANCED PROBIOTIC 1250 MG CAPSULE PO SCH (08:34)
[2022-05-05] MEDS: diazePAM 5 MG TABLET PO SCH (08:34)
[2022-05-05 08:47] LABS: BUN Creatinine Ratio 26.9 (10-20); Calcium 8.5 mg/dl (8.5-10.1); Creatinine Clr Calc Pharmacy 62.5 ml/min; Est GFR (African American) 83.8 ml/min; Est GFR (Non-African American) 72.3 ml/min; Magnesium 1.9 mg/dl (1.7-2.4); Potassium 3.8 mmol/L (3.5-5.1)
[2022-05-05 09:00] LABS: Basophils # (auto) 0.04 K/uL (0-0.2); Basophils % (auto) 0.4 %; Eosinophils # (auto) 0.16 K/uL (0-0.50); Eosinophils % (auto) 1.6 %; Hematocrit (blood only) 30.2 % (34.1-44.9); Immature Granulocytes # (auto) 0.03 K/uL (0.00-0.02); Immature Granulocytes % (auto) 0.3 %; Lymphocytes # (auto) 0.45 K/uL (1.2-3.4); Lymphocytes % (auto) 4.5 %; Mean Corpuscular Hemoglobin 31.4 pg (25.0-34.0); Mean Corpuscular Hgb Conc 33.1 g/dL (32.0-36.0); Mean Platelet Volume 8.9 fL (9.4-12.3); Monocytes # (auto) 0.74 K/uL (0.24-0.82); Monocytes % (auto) 7.4 %; Neutrophils # (auto) 8.54 K/uL (1.4-6.5); Neutrophils % (auto) 85.8 %; Platelet Count 274 K/uL (130-400); RDW Coefficient of Variation 14.8 % (11.5-14.5); RDW Standard Deviation 51.9 fL (36.4-46.3); Red Blood Count 3.18 M/uL (3.93-5.22); White Blood Count 9.96 K/ul (4.8-10.8)
--- NOTE | 2022-05-05 11:53 | Electrocardiogram Report ---
Test Reason : Blood Pressure : / mmHG Vent. Rate : 079 BPM Atrial Rate : 079 BPM P-R Int : 164 ms QRS Dur : 078 ms QT Int : 380 ms P-R-T Axes : 028 063 210 degrees QTc Int : 435 ms Normal sinus rhythm Abnormal ECG When compared with ECG of 23-APR-2022 16:33, Premature ventricular complexes are no longer Present T wave inversion now evident in Inferior leads T wave inversion now evident in Lateral leads Confirmed by Alf Carver ([id number]) on 05/05/2022 11:52:49 AM Referred By: REFERRED SELF Confirmed By:Alf Carver
[2022-05-05] MEDS: ENOXAPARIN INJ 40 MG/0.4 ML SYR SQ SCH (20:26)
[2022-05-06] MEDS: AMPICILLIN/SULBACTAM SOD 3,000 MG in 0.9 % SODIUM CHLORIDE 100 ML IV SCH ×4 (04:20→22:11)
[2022-05-06 07:38] LABS: Basophils # (auto) 0.04 K/uL (0-0.2); Basophils % (auto) 0.6 %; Eosinophils # (auto) 0.33 K/uL (0-0.50); Eosinophils % (auto) 5.2 %; Hematocrit (blood only) 30.7 % (34.1-44.9); Immature Granulocytes # (auto) 0.02 K/uL (0.00-0.02); Immature Granulocytes % (auto) 0.3 %; Lymphocytes # (auto) 0.69 K/uL (1.2-3.4); Lymphocytes % (auto) 10.8 %; Mean Corpuscular Hgb Conc 32.6 g/dL (32.0-36.0); Mean Platelet Volume 8.1 fL (9.4-12.3); Monocytes # (auto) 0.59 K/uL (0.24-0.82); Monocytes % (auto) 9.3 %; Neutrophils # (auto) 4.69 K/uL (1.4-6.5); Neutrophils % (auto) 73.8 %; Platelet Count 293 K/uL (130-400); RDW Coefficient of Variation 14.8 % (11.5-14.5); RDW Standard Deviation 52.1 fL (36.4-46.3); Red Blood Count 3.23 M/uL (3.93-5.22); White Blood Count 6.36 K/ul (4.8-10.8)
[2022-05-06 08:02] LABS: BUN Creatinine Ratio 23.5 (10-20); Calcium 8.3 mg/dl (8.5-10.1); Creatinine Clr Calc Pharmacy 95.7 ml/min; Est GFR (Non-African American) 91.5 ml/min; Potassium 3.7 mmol/L (3.5-5.1)
[2022-05-06] MEDS: ADVANCED PROBIOTIC 1250 MG CAPSULE PO SCH (09:55)
[2022-05-06] MEDS: diazePAM 5 MG TABLET PO SCH (09:58)
[2022-05-06] MEDS: diazePAM 2 MG TABLET PO SCH (09:58)
--- NOTE | 2022-05-06 18:26 | Hospitalist Progress Note ---
Date of Service May 06, 2022 Assessment & Plan (1) Decubitus ulcer of sacral area: Plan: - Surgical debridement on 04/26, wound cultures + for proteus mirabilis. - She was treated with vancomycin and Zosyn initially, then transitioned to Rocephin with Flagyl for several days per pharmacy recommendations. Eventually D/c'd on 05/02 with Keflex and FLagy to be taken TID x 10 more days. - She has been compliant with antibiotics since discharge. She is without fever or chills or pain at site of wound. - She broke her wound VAC yesterday at home when she hung it over an armrest. - Based on previous culture, Proteus was pansensitive, also grew bacterioides fragilis. - She received Vanco and Zosyn in the ED. To cover for anaerobes, continue Unasyn for now. - Appreciate wound care management (2) Wound of right lower extremity: Plan: - Right lower leg appears to have developed an open wound on top of the chronic b/l skin changes previously seen on last admission. - Wound care and antibiotics as above. (3) Cellulitis: Plan: - ABX and wound care as above. (total 14 days per prior discharge summary) (4) CARL (acute kidney injury): Plan: - Cr 1.29, baseline 0.6 - 0.7. - Suspect due to cellulitic infection of sacral wound ans right elf, as well as poor po intake as reported by patient. - Maintenance IVF with LRs at 135 cc/hr. - Avoid nephrotoxins and renally dose meds as able. (5) Multiple sclerosis: Plan: - Continue diazepam 5-7mg PRN daily for spasms. - Wheelchair bound at baseline. (6) HTN (hypertension): Plan: - 155/78, was consistently hypertensive to this degree during previous admission. D/c'd 05/02 with recommendations to follow up with PCP. - Continue to monitor while in hospital and consider adding medication prior to d/c. (7) Tinea pedis: Plan: - Continue Ketoconazole KATI BID Plan - Admit to med/surg. - SCDs and Lovenox for VTE ppx. - Full Code. Admission and Anticipated Discharge Date Admission Date: May 04, 2022 Subjective Main concern is some of her medications have not been prescribed including her vitamins for macular degeneration and tinea of her feet and now lower extremities. RLE wound ongoing for months per patient. Having trouble with wound vac today and currently needing it re-dressed. Review of Systems Review of Systems: All systems reviewed & are unremarkable except as noted in Subjective Physical Exam Constitutional: WD/WN, vitals as above Respiratory: normal respiratory effort, lungs clear to auscultation Cardiovascular: Rate/Rhythm: regular rate and regular rhythm Extremities: normal capillary refill (toes) and + pedal edema (2+ pitting) Gastrointestinal (Abdomen): Inspection/Auscultation: normal bowel sounds Percussion/Palpation: abdomen soft; abdomen nontender, no guarding and abdomen not rigid Skin: + wound (RLE lateral leg) and + crusts (Tinea on b/l LE below ankles) Psychiatric: A+Ox3, euthymic affect Results & Data Results & Data ([facility]) Vital Signs (Past 12 Hours) Vital Signs Temp Pulse Resp BP Pulse Ox O2 Del Method 05/06/22 16:46 36.8 C 68 16 133/73 94 Room Air 05/06/22 15:07 Room Air 05/06/22 07:19 36.8 C 66 16 131/66 95 Room Air PG Care Time/CCT Total # of Minutes Spent Total Time Spent with Patient: Total time spent is greater than 50% in coordination of care (as documented) at patient's floor/unit and/or counseling patient: Coding Level of Care Code 88495 Subseq Hosp Care Lvl 1 Diagnoses Decubitus ulcer of sacral area L89.159 Wound of right lower extremity S81.801A Cellulitis L03.90 CARL (acute kidney injury) N17.9 Multiple sclerosis G35 HTN (hypertension) I10 Tinea pedis B35.3
[2022-05-06] MEDS: ENOXAPARIN INJ 40 MG/0.4 ML SYR SQ SCH (22:11)
[2022-05-06] MEDS: CEROVITE ADV FORMULA TAB PO SCH (22:12)
[2022-05-06] MEDS: KETOCONAZOLE 2% CR 15 GM TUBE EXT SCH (22:12)
[2022-05-07] MEDS: AMPICILLIN/SULBACTAM SOD 3,000 MG in 0.9 % SODIUM CHLORIDE 100 ML IV SCH ×4 (03:57→20:38)
[2022-05-07] MEDS: ADVANCED PROBIOTIC 1250 MG CAPSULE PO SCH (08:37)
[2022-05-07] MEDS: CEROVITE ADV FORMULA TAB PO SCH (08:37)
[2022-05-07] MEDS: KETOCONAZOLE 2% CR 15 GM TUBE EXT SCH ×2 (08:38→20:38)
[2022-05-07] MEDS: PRESERVISION AREDS 2: NON-FORMULARY PATIENT'S OWN MED PO SCH (18:44)
[2022-05-07] MEDS: ENOXAPARIN INJ 40 MG/0.4 ML SYR SQ SCH (20:37)
[2022-05-07] MEDS: diazePAM 5 MG TABLET PO PRN (22:42)
[2022-05-07] MEDS: diazePAM 2 MG TABLET PO PRN (22:42)
--- NOTE | 2022-05-07 23:12 | Hospitalist Progress Note ---
Date of Service May 07, 2022 Assessment & Plan (1) Decubitus ulcer of sacral area: Plan: - Surgical debridement on 04/26, wound cultures + for proteus mirabilis. - She was treated with vancomycin and Zosyn initially, then transitioned to Rocephin with Flagyl for several days per pharmacy recommendations. Eventually D/c'd on 05/02 with Keflex and FLagy to be taken TID x 10 more days. - She has been compliant with antibiotics since discharge. She is without fever or chills or pain at site of wound. - She broke her wound VAC yesterday at home when she hung it over an armrest. - Based on previous culture, Proteus was pansensitive, also grew bacterioides fragilis. - She received Vanco and Zosyn in the ED. To cover for anaerobes, continue Unasyn while in hospital for treatment course - Appreciate wound care management (2) Wound of right lower extremity: Plan: - Right lower leg appears to have developed an open wound on top of the chronic b/l skin changes previously seen on last admission. - Wound care and antibiotics as above. - Ketoconazole around wound and ankles for fungal infection BID. (3) Cellulitis: Plan: - ABX and wound care as above. (total 14 days per prior discharge summary) (4) CARL (acute kidney injury): Plan: - Cr 1.29, baseline 0.6 - 0.7. - Suspect due to cellulitic infection of sacral wound ans right elf, as well as poor po intake as reported by patient. - Avoid nephrotoxins and renally dose meds as able. (5) Multiple sclerosis: Plan: - Continue diazepam 5-7mg PRN daily for spasms. - Wheelchair bound at baseline. (6) HTN (hypertension): Plan: - 155/78, was consistently hypertensive to this degree during previous admission. D/c'd 05/02 with recommendations to follow up with PCP. - Continue to monitor while in hospital and consider adding medication prior to d/c. (7) Tinea pedis: Plan: - Continue Ketoconazole KATI BID Plan - Admit to med/surg. - SCDs and Lovenox for VTE ppx. - Full Code. Admission and Anticipated Discharge Date Admission Date: May 04, 2022 Subjective No concerns or questions for me. She remains medically stable for discharge at this time. Review of Systems Review of Systems: All systems reviewed & are unremarkable except as noted in Subjective Physical Exam Constitutional: WD/WN, vitals as above Respiratory: normal respiratory effort, lungs clear to auscultation Cardiovascular: Rate/Rhythm: regular rate and regular rhythm Gastrointestinal (Abdomen): Inspection/Auscultation: normal bowel sounds Percussion/Palpation: abdomen soft; abdomen nontender, no guarding and abdomen not rigid Skin: + wound (RLE lateral leg) and + crusts (Tinea on b/l LE below ankles) Psychiatric: A+Ox3, euthymic affect Results & Data Results & Data ([facility]) Vital Signs (Past 12 Hours) Vital Signs Temp Pulse Pulse Resp BP BP Pulse Ox 05/07/22 21:16 36.9 C 66 16 149/75 H 93 05/07/22 15:50 36.7 C 69 16 148/78 H 94 O2 Del Method 05/07/22 21:16 Room Air 05/07/22 15:50 Room Air PG Care Time/CCT Total # of Minutes Spent Total Time Spent with Patient: Total time spent is greater than 50% in coordination of care (as documented) at patient's floor/unit and/or counseling patient: Coding Level of Care Code 59004 Subseq Hosp Care Lvl 1 Diagnoses Decubitus ulcer of sacral area L89.159 Wound of right lower extremity S81.801A Cellulitis L03.90 CARL (acute kidney injury) N17.9 Multiple sclerosis G35 HTN (hypertension) I10 Tinea pedis B35.3
[2022-05-08] MEDS ORDERED: MICONAZOLE NITRATE POWDER 43 GM EXT PRN (03:11)
[2022-05-08] MEDS: AMPICILLIN/SULBACTAM SOD 3,000 MG in 0.9 % SODIUM CHLORIDE 100 ML IV SCH ×4 (04:12→20:32)
[2022-05-08] MEDS: PRESERVISION AREDS 2: NON-FORMULARY PATIENT'S OWN MED PO SCH ×2 (08:29→18:11)
[2022-05-08] MEDS: ADVANCED PROBIOTIC 1250 MG CAPSULE PO SCH (08:29)
[2022-05-08] MEDS: KETOCONAZOLE 2% CR 15 GM TUBE EXT SCH ×3 (08:30→20:33)
--- NOTE | 2022-05-08 19:33 | Hospitalist Progress Note ---
Date of Service May 08, 2022 Assessment & Plan (1) Decubitus ulcer of sacral area: Plan: - Surgical debridement on 04/26, wound cultures + for proteus mirabilis. - She was treated with vancomycin and Zosyn initially, then transitioned to Rocephin with Flagyl for several days per pharmacy recommendations. Eventually D/c'd on 05/02 with Keflex and FLagy to be taken TID x 10 more days. - She has been compliant with antibiotics since discharge. She is without fever or chills or pain at site of wound. - She broke her wound VAC yesterday at home when she hung it over an armrest. - Based on previous culture, Proteus was pansensitive, also grew bacterioides fragilis. - She received Vanco and Zosyn in the ED. To cover for anaerobes, continue Unasyn for now (last day May 12). - Appreciate wound care management (2) Wound of right lower extremity: Plan: - Right lower leg appears to have developed an open wound on top of the chronic b/l skin changes previously seen on last admission. - Wound care and antibiotics as above. (3) Cellulitis: Plan: - ABX and wound care as above. (total 14 days per prior discharge summary) (4) CARL (acute kidney injury): Plan: - Cr 1.29, baseline 0.6 - 0.7. - Suspect due to cellulitic infection of sacral wound ans right elf, as well as poor po intake as reported by patient. - Avoid nephrotoxins and renally dose meds as able. (5) Multiple sclerosis: Plan: - Continue diazepam 5-7mg PRN daily for spasms. - Wheelchair bound at baseline. (6) HTN (hypertension): Plan: - 155/78, was consistently hypertensive to this degree during previous admission. D/c'd 05/02 with recommendations to follow up with PCP. (7) Tinea pedis: Plan: - Continue Ketoconazole KATI BID, use cream also on left hand Plan - Admit to med/surg. Medically stable for discharge awaiting placement at this time. - SCDs and Lovenox for VTE ppx. - Full Code. Admission and Anticipated Discharge Date Admission Date: May 04, 2022 Subjective Main concern today is peeling of her skin on her left hand. She reports this is being new. Otherwise at her baseline self awaiting placement at this time. Review of Systems Review of Systems: All systems reviewed & are unremarkable except as noted in Subjective Physical Exam Constitutional: WD/WN, vitals as above Respiratory: normal respiratory effort, lungs clear to auscultation Cardiovascular: Rate/Rhythm: regular rate and regular rhythm Extremities: normal capillary refill (toes) and + pedal edema (1+ pitting) Gastrointestinal (Abdomen): Inspection/Auscultation: normal bowel sounds Percussion/Palpation: abdomen soft; abdomen nontender, no guarding and abdomen not rigid Skin: + wound (RLE lateral leg) and + crusts (Tinea on b/l LE below ankles) Peeling skin on her left hand consistent with fungal infection. Psychiatric: A+Ox3, euthymic affect Results & Data Results & Data ([facility]) Vital Signs (Past 12 Hours) Vital Signs Temp Pulse Resp BP Pulse Ox O2 Del Method 05/08/22 15:16 36.6 C 70 16 115/73 97 Room Air 05/08/22 10:47 Room Air 05/08/22 07:56 36.7 C 67 16 163/63 H 95 Room Air PG Care Time/CCT Total # of Minutes Spent Total Time Spent with Patient: Total time spent is greater than 50% in coordination of care (as documented) at patient's floor/unit and/or counseling patient: Coding Level of Care Code 57162 Subseq Hosp Care Lvl 1 Diagnoses Decubitus ulcer of sacral area L89.159 Wound of right lower extremity S81.801A Cellulitis L03.90 CARL (acute kidney injury) N17.9 Multiple sclerosis G35 HTN (hypertension) I10 Tinea pedis B35.3
[2022-05-08] MEDS: ENOXAPARIN INJ 40 MG/0.4 ML SYR SQ SCH (20:32)
[2022-05-09] MEDS: AMPICILLIN/SULBACTAM SOD 3,000 MG in 0.9 % SODIUM CHLORIDE 100 ML IV SCH ×4 (04:01→21:19)
[2022-05-09] MEDS: diazePAM 5 MG TABLET PO PRN (06:01)
[2022-05-09] MEDS: diazePAM 2 MG TABLET PO PRN (06:01)
[2022-05-09] MEDS: PRESERVISION AREDS 2: NON-FORMULARY PATIENT'S OWN MED PO SCH ×2 (08:27→18:22)
[2022-05-09] MEDS: ADVANCED PROBIOTIC 1250 MG CAPSULE PO SCH (08:27)
[2022-05-09] MEDS: KETOCONAZOLE 2% CR 15 GM TUBE EXT SCH ×4 (08:28→21:16)
[2022-05-09] MEDS: ENOXAPARIN INJ 40 MG/0.4 ML SYR SQ SCH (21:14)
[2022-05-10] MEDS: AMPICILLIN/SULBACTAM SOD 3,000 MG in 0.9 % SODIUM CHLORIDE 100 ML IV SCH ×4 (03:35→22:10)
[2022-05-10] MEDS: PRESERVISION AREDS 2: NON-FORMULARY PATIENT'S OWN MED PO SCH ×2 (09:43→17:01)
[2022-05-10] MEDS: diazePAM 5 MG TABLET PO PRN (09:44)
[2022-05-10] MEDS: KETOCONAZOLE 2% CR 15 GM TUBE EXT SCH ×4 (09:44→22:09)
[2022-05-10] MEDS: ADVANCED PROBIOTIC 1250 MG CAPSULE PO SCH (09:44)
[2022-05-10] MEDS: diazePAM 2 MG TABLET PO PRN (09:44)
[2022-05-10] MEDS: ENOXAPARIN INJ 40 MG/0.4 ML SYR SQ SCH (22:08)
--- NOTE | 2022-05-10 23:08 | Hospitalist Progress Note ---
Date of Service May 09, 2022 Assessment & Plan (1) Decubitus ulcer of sacral area: Plan: - Surgical debridement on 04/26, wound cultures + for proteus mirabilis. - She was treated with vancomycin and Zosyn initially, then transitioned to Rocephin with Flagyl for several days per pharmacy recommendations. Eventually D/c'd on 05/02 with Keflex and FLagy to be taken TID x 10 more days. - She has been compliant with antibiotics since discharge. She is without fever or chills or pain at site of wound. - She broke her wound VAC at home when she hung it over an armrest. - Based on previous culture, Proteus was pansensitive, also grew bacterioides fragilis. - She received Vanco and Zosyn in the ED. To cover for anaerobes, continue Unasyn for now (last day May 12). - Appreciate wound care management Appears stable/improving (2) Wound of right lower extremity: Plan: - Right lower leg appears to have developed an open wound on top of the chronic b/l skin changes previously seen on last admission. - Wound care and antibiotics as above. (3) Cellulitis: Plan: - ABX and wound care as above. (total 14 days per prior discharge summary) (4) CARL (acute kidney injury): Plan: - Cr 1.29, baseline 0.6 - 0.7. - Suspect due to cellulitic infection of sacral wound ans right elf, as well as poor po intake as reported by patient. - Avoid nephrotoxins and renally dose meds as able. (5) Multiple sclerosis: Plan: - Continue diazepam 5-7mg PRN daily for spasms. - Wheelchair bound at baseline. (6) HTN (hypertension): Plan: - 155/78, was consistently hypertensive to this degree during previous admission. D/c'd 05/02 with recommendations to follow up with PCP. (7) Tinea pedis: Plan: Improving - Continue Ketoconazole KATI BID, use cream also on left hand Plan - Admit to med/surg. Medically stable for discharge awaiting placement at this time. - SCDs and Lovenox for VTE ppx. - Full Code. Admission and Anticipated Discharge Date Admission Date: May 04, 2022 Subjective No acute concerns or questions from patient. Tinea on leg and ankles and hand rash improving on ketoconazole cream. Review of Systems Review of Systems: All systems reviewed & are unremarkable except as noted in Subjective Physical Exam Constitutional: WD/WN, vitals as above Respiratory: normal respiratory effort, lungs clear to auscultation Cardiovascular: Rate/Rhythm: regular rate and regular rhythm Extremities: normal capillary refill (toes) and + pedal edema (1+ pitting) Gastrointestinal (Abdomen): Inspection/Auscultation: normal bowel sounds Percussion/Palpation: abdomen soft; abdomen nontender, no guarding and abdomen not rigid Skin: + wound (RLE lateral leg) and + crusts (Tinea on b/l LE below ankles) Psychiatric: A+Ox3, euthymic affect Results & Data Results & Data ([facility]) Vital Signs (Past 12 Hours) Vital Signs Temp Pulse Resp BP Pulse Ox O2 Del Method 05/10/22 22:00 36.8 C 68 18 130/74 94 Room Air 05/10/22 14:29 36.4 C L 69 16 140/88 94 Room Air PG Care Time/CCT Total # of Minutes Spent Total Time Spent with Patient: Total time spent is greater than 50% in coordination of care (as documented) at patient's floor/unit and/or counseling patient: Coding Level of Care Code 38361 Subseq Hosp Care Lvl 1 Diagnoses Decubitus ulcer of sacral area L89.159 Wound of right lower extremity S81.801A Cellulitis L03.90 CARL (acute kidney injury) N17.9 Multiple sclerosis G35 HTN (hypertension) I10 Tinea pedis B35.3
[2022-05-11] MEDS: AMPICILLIN/SULBACTAM SOD 3,000 MG in 0.9 % SODIUM CHLORIDE 100 ML IV SCH ×3 (04:03→16:02)
--- NOTE | 2022-05-11 07:06 | Hospitalist Progress Note ---
Date of Service May 10, 2022 Assessment & Plan (1) Decubitus ulcer of sacral area: Plan: - Surgical debridement on 04/26, wound cultures + for proteus mirabilis. - She was treated with vancomycin and Zosyn initially, then transitioned to Rocephin with Flagyl for several days per pharmacy recommendations. Eventually D/c'd on 05/02 with Keflex and FLagy to be taken TID x 10 more days. - She has been compliant with antibiotics since discharge. She is without fever or chills or pain at site of wound. - She broke her wound VAC at home when she hung it over an armrest. - Based on previous culture, Proteus was pansensitive, also grew bacterioides fragilis. - She received Vanco and Zosyn in the ED. To cover for anaerobes, continue Unasyn for now (last day May 12). - Appreciate wound care management Medically stable for discharge pending placement (2) Wound of right lower extremity: Plan: Improving - Right lower leg appears to have developed an open wound on top of the chronic b/l skin changes previously seen on last admission. - Wound care and antibiotics as above. (3) Cellulitis: Plan: - ABX and wound care as above. (total 14 days per prior discharge summary) (4) CARL (acute kidney injury): Plan: - Cr 1.29, baseline 0.6 - 0.7. - Suspect due to cellulitic infection of sacral wound ans right elf, as well as poor po intake as reported by patient. - Avoid nephrotoxins and renally dose meds as able. (5) Multiple sclerosis: Plan: - Continue diazepam 5-7mg PRN daily for spasms. - Wheelchair bound at baseline. (6) HTN (hypertension): Plan: - 155/78, was consistently hypertensive to this degree during previous admission. D/c'd 05/02 with recommendations to follow up with PCP. (7) Tinea pedis: Plan: Improving - Continue Ketoconazole KATI BID, use cream also on left hand Plan - Admit to med/surg. Medically stable for discharge awaiting placement at this time. - SCDs and Lovenox for VTE ppx. - Full Code. Admission and Anticipated Discharge Date Admission Date: May 04, 2022 Subjective No acute concerns of questions from patient. Awaiting placement at this time. No watery diarrhea on antibiotics. Review of Systems Review of Systems: All systems reviewed & are unremarkable except as noted in Subjective Physical Exam Constitutional: WD/WN, vitals as above Gastrointestinal (Abdomen): Inspection/Auscultation: normal bowel sounds Percussion/Palpation: abdomen soft; abdomen nontender, no guarding and abdomen not rigid Skin: + wound (RLE lateral leg) and + crusts (Tinea on b/l LE below ankles) Psychiatric: A+Ox3, euthymic affect Results & Data Results & Data ([facility]) Vital Signs (Past 12 Hours) Vital Signs Temp Pulse Resp BP Pulse Ox O2 Del Method 05/11/22 06:43 36.5 C 66 16 131/71 95 Room Air 05/10/22 19:55 Room Air 05/10/22 22:00 36.8 C 68 18 130/74 94 Room Air PG Care Time/CCT Total # of Minutes Spent Total Time Spent with Patient: Total time spent is greater than 50% in coordination of care (as documented) at patient's floor/unit and/or counseling patient: Coding Level of Care Code 85892 Subseq Hosp Care Lvl 1 Diagnoses Decubitus ulcer of sacral area L89.159 Wound of right lower extremity S81.801A Cellulitis L03.90 CARL (acute kidney injury) N17.9 Multiple sclerosis G35 HTN (hypertension) I10 Tinea pedis B35.3
[2022-05-11] MEDS: PRESERVISION AREDS 2: NON-FORMULARY PATIENT'S OWN MED PO SCH ×2 (07:18→17:15)
[2022-05-11] MEDS: ADVANCED PROBIOTIC 1250 MG CAPSULE PO SCH (07:18)
[2022-05-11] MEDS: KETOCONAZOLE 2% CR 15 GM TUBE EXT SCH ×4 (07:21→20:46)
[2022-05-11 08:55] LABS: Basophils # (auto) 0.04 K/uL (0-0.2); Basophils % (auto) 0.7 %; Eosinophils # (auto) 0.46 K/uL (0-0.50); Hematocrit (blood only) 35.8 % (34.1-44.9); Hemoglobin 11.6 g/dl (12.0-16.0); Immature Granulocytes # (auto) 0.02 K/uL (0.00-0.02); Immature Granulocytes % (auto) 0.3 %; Lymphocytes # (auto) 1.03 K/uL (1.2-3.4); Lymphocytes % (auto) 17.9 %; Mean Corpuscular Hemoglobin 31.5 pg (25.0-34.0); Mean Corpuscular Hgb Conc 32.4 g/dL (32.0-36.0); Mean Corpuscular Volume 97.3 fL (80.0-100.0); Mean Platelet Volume 8.3 fL (9.4-12.3); Monocytes % (auto) 8.7 %; Neutrophils % (auto) 64.4 %; Platelet Count 335 K/uL (130-400); RDW Coefficient of Variation 14.8 % (11.5-14.5); RDW Standard Deviation 53.6 fL (36.4-46.3); Red Blood Count 3.68 M/uL (3.93-5.22); White Blood Count 5.75 K/ul (4.8-10.8)
[2022-05-11 09:54] LABS: BUN Creatinine Ratio 14.3 (10-20); Calcium 8.8 mg/dl (8.5-10.1); Creatinine Clr Calc Pharmacy 87.1 ml/min; Est GFR (African American) 102.8 ml/min; Est GFR (Non-African American) 88.7 ml/min; Potassium 3.9 mmol/L (3.5-5.1)
--- NOTE | 2022-05-11 14:07 | Hospitalist Progress Note ---
Date of Service May 11, 2022 Assessment & Plan (1) Decubitus ulcer of sacral area: Plan: - Surgical debridement completed on 04/26. Proteus isolated. She remains on intravenous Unasyn through May 12. Wound VAC is now in place. She will need outpatient follow-up in the wound care clinic (2) Wound of right lower extremity: Plan: Improving. Wound care and antibiotics as above. (3) Cellulitis: Plan: ABX and wound care as above. (total 14 days per prior discharge summary) (4) CARL (acute kidney injury): Plan: - Cr mildly elevated on admission. Resolved with IV fluids. Monitor intake and output. Serial lab studies (5) Multiple sclerosis: Plan: Continue diazepam 5-7mg PRN daily for spasms. Wheelchair bound at baseline. (6) HTN (hypertension): Plan: Med management. Stable . (7) Tinea pedis: Plan: Improving with ketoconazole therapy Plan Eventual discharge to SNF. Admission and Anticipated Discharge Date Admission Date: May 04, 2022 Subjective Alert and oriented. She remains on intravenous Unasyn through May 12. SNF placement pending. Review of Systems Review of Systems: Constitutional-no fever or chills ENT-no blurred vision, no double vision, no epistaxis, no sore throat Respiratory-no cough, no wheezing, no shortness of breath Cardiac-no palpitations, no chest pain, no syncope GI-no nausea, vomiting, diarrhea, melena, hematochezia -no urinary retention, no urinary incontinence, no dysuria, no hematuria Musculoskeletal-no joint pain, no muscle tenderness Skin-no bruising, no rashes, no pruritus Neuro-no isolated weakness, no paresthesia, no weakness Psych-no depression, no anxiety Physical Exam Physical Exam: General-alert and oriented x3, no fevers, no chills HEENT-head atraumatic and normocephalic, pupils equal and reactive to light, extraocular muscles intact Neck-no lymphadenopathy or thyromegaly, trachea midline Chest-clear to auscultation percussion. No rales wheezing or rhonchi Cardiac-regular rate and rhythm, normal S1 and S2, no murmurs Abdomen-normal bowel sounds, nontender, no hepatosplenomegaly Extremities-no cyanosis, clubbing, or edema Neuro-cranial nerves II through XII intact, motor and sensory function within normal limits, strength symmetrical , no focal deficits Psych-normal affect, normal mood Skinwound VAC in place in the sacral area Results & Data Results & Data ([facility]) Vital Signs (Past 12 Hours) Vital Signs Temp Pulse Resp BP Pulse Ox O2 Del Method 05/11/22 06:43 36.5 C 66 16 131/71 95 Room Air Laboratory Results 05/11/22 08:13 05/11/22 08:13 PG Care Time/CCT Total # of Minutes Spent Total Time Spent with Patient: Total time spent is greater than 50% in coordination of care (as documented) at patient's floor/unit and/or counseling patient: Coding Level of Care Code 35359 Subseq Hosp Care Lvl 3 Diagnoses Decubitus ulcer of sacral area L89.159 Wound of right lower extremity S81.801A Cellulitis L03.90 CARL (acute kidney injury) N17.9 Multiple sclerosis G35 HTN (hypertension) I10 Tinea pedis B35.3
[2022-05-11] MEDS: ENOXAPARIN INJ 40 MG/0.4 ML SYR SQ SCH (20:45)
[2022-05-11] MEDS: diazePAM 5 MG TABLET PO PRN (20:45)
[2022-05-11] MEDS: diazePAM 2 MG TABLET PO PRN (20:45)
--- NOTE | 2022-05-12 09:14 | Hospitalist Progress Note ---
Date of Service May 12, 2022 Assessment & Plan (1) Decubitus ulcer of sacral area: Plan: - Surgical debridement completed on 04/26. Proteus isolated. She remains on intravenous Unasyn through May 12. Wound VAC . She will need outpatient follow-up in the wound care clinic (2) Wound of right lower extremity: Plan: Improving. Wound care and antibiotics as above. (3) Cellulitis: Plan: ABX and wound care as above. (total 14 days per prior discharge summary) (4) CARL (acute kidney injury): Plan: - Cr mildly elevated on admission. Resolved with IV fluids. Monitor intake and output. Serial lab studies (5) Multiple sclerosis: Plan: Continue diazepam 5-7mg PRN daily for spasms. Wheelchair bound at baseline. (6) HTN (hypertension): Plan: Med management. Stable . (7) Tinea pedis: Plan: Improving with ketoconazole therapy Plan Eventual discharge to SNF. Admission and Anticipated Discharge Date Admission Date: May 04, 2022 Subjective pt is here and improving has no new symptoms, awaiting placement Review of Systems Review of Systems: Mild distress and fatigue no headache, no visual changes no speech or swallowing issues no chest pain, pressure or palpitations no shortness of breath, cough or wheezes no abdominal pain, nausea or vomiting, diarrhea or constipation no dysuria, hematuria or frequency no focal joint pain or swelling no back pain, CVA tenderness or radicular pain Is open wounds on legs which is being cared for by wound care no focal signs of weakness or numbness or altered sensation no complaints of anxiety or depression.. Physical Exam Physical Exam: The patient appeared stable Vital signs as documented. Lungs are clear to auscultation and appear unlabored Cardiac exam, Rhythm is regular.. Soft murmur is heard Abdominal exam reveals normal bowel sounds, soft non tender, no masses Extremities are open areas seen on leg Neurologic exam is alert and oriented, no focal loss of strength or sensation Skin is with bruises Psychologically is without concerns for anxiety or depression. Results & Data Results & Data ([facility]) Vital Signs (Past 12 Hours) Vital Signs Temp Pulse Resp BP Pulse Ox O2 Del Method 05/12/22 06:37 98.2 F 73 18 135/73 93 Room Air 05/11/22 22:16 98.6 F 74 16 123/71 92 Room Air PG Care Time/CCT Total # of Minutes Spent Total Time Spent with Patient: Total time spent is greater than 50% in coordination of care (as documented) at patient's floor/unit and/or counseling patient: Coding Level of Care Code 74662 Subseq Hosp Care Lvl 2 Diagnoses Decubitus ulcer of sacral area L89.159 Wound of right lower extremity S81.801A Cellulitis L03.90 CARL (acute kidney injury) N17.9 Multiple sclerosis G35 HTN (hypertension) I10 Tinea pedis B35.3
[2022-05-12] MEDS: PRESERVISION AREDS 2: NON-FORMULARY PATIENT'S OWN MED PO SCH ×2 (09:18→16:54)
[2022-05-12] MEDS: KETOCONAZOLE 2% CR 15 GM TUBE EXT SCH ×4 (09:18→21:27)
[2022-05-12] MEDS: ADVANCED PROBIOTIC 1250 MG CAPSULE PO SCH (09:19)
[2022-05-12] MEDS: ENOXAPARIN INJ 40 MG/0.4 ML SYR SQ SCH (21:27)
[2022-05-12] MEDS: diazePAM 5 MG TABLET PO PRN (21:35)
[2022-05-12] MEDS: diazePAM 2 MG TABLET PO PRN (21:35)
[2022-05-13] MEDS: ADVANCED PROBIOTIC 1250 MG CAPSULE PO SCH (08:45)
[2022-05-13] MEDS: KETOCONAZOLE 2% CR 15 GM TUBE EXT SCH ×4 (08:45→20:30)
[2022-05-13] MEDS: PRESERVISION AREDS 2: NON-FORMULARY PATIENT'S OWN MED PO SCH ×2 (08:45→17:05)
--- NOTE | 2022-05-13 08:59 | Hospitalist Progress Note ---
Date of Service May 13, 2022 Assessment & Plan (1) Decubitus ulcer of sacral area: Plan: - Surgical debridement completed on 04/26. Proteus isolated. She remains on intravenous Unasyn through May 12. Wound VAC . She will need outpatient follow-up in the wound care clinic buttock wound grew proteus, Bastreoides faragilis and Eggerthella (2) Wound of right lower extremity: Plan: Improving. Wound care and antibiotics as above. (3) Cellulitis: Plan: ABX and wound care as above. (total 14 days per prior discharge summary) (4) CARL (acute kidney injury): Plan: - Cr mildly elevated on admission. Resolved with IV fluids. Monitor intake and output. Serial lab studies (5) Multiple sclerosis: Plan: Continue diazepam 5-7mg PRN daily for spasms. Wheelchair bound at baseline. (6) HTN (hypertension): Plan: Med management. Stable . (7) Tinea pedis: Plan: Improving with ketoconazole therapy Plan Eventual discharge to SNF. Admission and Anticipated Discharge Date Admission Date: May 04, 2022 Subjective pt is here and improving has no new symptoms, awaiting placement , discussed gluteal decubitus and need for more supportive care Review of Systems Review of Systems: Mild distress and fatigue no headache, no visual changes no speech or swallowing issues no chest pain, pressure or palpitations no shortness of breath, cough or wheezes no abdominal pain, nausea or vomiting, diarrhea or constipation no dysuria, hematuria or frequency no focal joint pain or swelling no back pain, CVA tenderness or radicular pain Is open wounds on legs which is being cared for by wound care no focal signs of weakness or numbness or altered sensation no complaints of anxiety or depression.. Physical Exam Physical Exam: The patient appeared stable Vital signs as documented. Lungs are clear to auscultation and appear unlabored Cardiac exam, Rhythm is regular.. Soft murmur is heard Abdominal exam reveals normal bowel sounds, soft non tender, no masses Extremities are open areas seen on leg Neurologic exam is alert and oriented, no focal loss of strength or sensation Skin is with bruises Psychologically is without concerns for anxiety or depression. Results & Data Results & Data ([facility]) Vital Signs (Past 12 Hours) Vital Signs Temp Pulse Resp BP Pulse Ox O2 Del Method 05/13/22 08:07 98.8 F 74 14 155/71 H 94 Room Air 05/13/22 01:37 Room Air 05/12/22 23:42 98.2 F 69 18 126/68 93 Room Air PG Care Time/CCT Total # of Minutes Spent Total Time Spent with Patient: Total time spent is greater than 50% in coordination of care (as documented) at patient's floor/unit and/or counseling patient: Coding Level of Care Code 75519 Subseq Hosp Care Lvl 2 Diagnoses Decubitus ulcer of sacral area L89.159 Wound of right lower extremity S81.801A Cellulitis L03.90 CARL (acute kidney injury) N17.9 Multiple sclerosis G35 HTN (hypertension) I10 Tinea pedis B35.3
[2022-05-13] MEDS: ENOXAPARIN INJ 40 MG/0.4 ML SYR SQ SCH (20:29)
[2022-05-13] MEDS: diazePAM 2 MG TABLET PO PRN (23:25)
[2022-05-13] MEDS: diazePAM 5 MG TABLET PO PRN (23:25)
[2022-05-14] MEDS: KETOCONAZOLE 2% CR 15 GM TUBE EXT SCH ×3 (09:29→20:48)
[2022-05-14] MEDS: ADVANCED PROBIOTIC 1250 MG CAPSULE PO SCH (09:29)
[2022-05-14] MEDS: PRESERVISION AREDS 2: NON-FORMULARY PATIENT'S OWN MED PO SCH ×2 (09:30→17:25)
[2022-05-14] MEDS: ACETAMINOPHEN 500 MG TAB PO PRN (12:20)
--- NOTE | 2022-05-14 18:58 | Hospitalist Progress Note ---
Date of Service May 14, 2022 Assessment & Plan (1) Decubitus ulcer of sacral area: Plan: - Surgical debridement completed on 04/26. Proteus isolated. She remains on intravenous Unasyn through May 12. Wound VAC . She will need outpatient follow-up in the wound care clinic buttock wound grew proteus, Bastreoides faragilis and Eggerthella (2) Wound of right lower extremity: Plan: Improving. Wound care and antibiotics as above. (3) Cellulitis: Plan: ABX and wound care as above. (total 14 days per prior discharge summary) (4) CARL (acute kidney injury): Plan: - Cr mildly elevated on admission. Resolved with IV fluids. Monitor intake and output. Serial lab studies (5) Multiple sclerosis: Plan: Continue diazepam 5-7mg PRN daily for spasms. Wheelchair bound at baseline. (6) HTN (hypertension): Plan: Med management. Stable . (7) Tinea pedis: Plan: Improving with ketoconazole therapy Plan Eventual discharge to SNF. Admission and Anticipated Discharge Date Admission Date: May 04, 2022 Subjective pt is here and improving has no new symptoms, awaiting placement , discussed gluteal decubitus and need for more supportive care at bedside we all reviewed pictures of wound Review of Systems Review of Systems: Mild distress and fatigue no headache, no visual changes no speech or swallowing issues no chest pain, pressure or palpitations no shortness of breath, cough or wheezes no abdominal pain, nausea or vomiting, diarrhea or constipation no dysuria, hematuria or frequency no focal joint pain or swelling no back pain, CVA tenderness or radicular pain Is open wounds on legs which is being cared for by wound care no focal signs of weakness or numbness or altered sensation no complaints of anxiety or depression.. Physical Exam Physical Exam: The patient appeared stable Vital signs as documented. Lungs are clear to auscultation and appear unlabored Cardiac exam, Rhythm is regular.. Soft murmur is heard Abdominal exam reveals normal bowel sounds, soft non tender, no masses Extremities are open areas seen on leg Neurologic exam is alert and oriented, no focal loss of strength or sensation Skin is with bruises Psychologically is without concerns for anxiety or depression. Results & Data Results & Data ([facility]) Vital Signs (Past 12 Hours) Vital Signs Temp Pulse Resp BP Pulse Ox O2 Del Method 05/14/22 15:39 97.9 F 70 16 144/74 H 93 Room Air 05/14/22 07:24 98.6 F 73 16 152/78 H 94 Room Air PG Care Time/CCT Total # of Minutes Spent Total Time Spent with Patient: Total time spent is greater than 50% in coordination of care (as documented) at patient's floor/unit and/or counseling patient: Coding Level of Care Code 54025 Subseq Hosp Care Lvl 1 Diagnoses Decubitus ulcer of sacral area L89.159 Wound of right lower extremity S81.801A Cellulitis L03.90 CARL (acute kidney injury) N17.9 Multiple sclerosis G35 HTN (hypertension) I10 Tinea pedis B35.3
[2022-05-14] MEDS: ENOXAPARIN INJ 40 MG/0.4 ML SYR SQ SCH (20:47)
[2022-05-14] MEDS: diazePAM 5 MG TABLET PO PRN (23:33)
[2022-05-14] MEDS: diazePAM 2 MG TABLET PO PRN (23:34)
[2022-05-15] MEDS: ADVANCED PROBIOTIC 1250 MG CAPSULE PO SCH (08:41)
[2022-05-15] MEDS: PRESERVISION AREDS 2: NON-FORMULARY PATIENT'S OWN MED PO SCH ×2 (08:41→17:40)
[2022-05-15] MEDS: KETOCONAZOLE 2% CR 15 GM TUBE EXT SCH ×2 (08:42→20:11)
[2022-05-15 08:44] LABS: Hemoglobin 11.8 g/dl (12.0-16.0); Mean Corpuscular Hemoglobin 31.2 pg (25.0-34.0); Mean Corpuscular Hgb Conc 32.8 g/dL (32.0-36.0); Mean Corpuscular Volume 95.2 fL (80.0-100.0); Mean Platelet Volume 9.1 fL (9.4-12.3); Platelet Count 279 K/uL (130-400); RDW Coefficient of Variation 14.9 % (11.5-14.5); RDW Standard Deviation 52.6 fL (36.4-46.3); Red Blood Count 3.78 M/uL (3.93-5.22)
[2022-05-15 09:09] LABS: Calcium 9.1 mg/dl (8.5-10.1); Creatinine Clr Calc Pharmacy 97.6 ml/min; Est GFR (African American) 106.7 ml/min; Est GFR (Non-African American) 92.1 ml/min; Potassium 3.9 mmol/L (3.5-5.1)
--- NOTE | 2022-05-15 17:51 | Hospitalist Progress Note ---
Date of Service May 15, 2022 Assessment & Plan (1) Decubitus ulcer of sacral area: Plan: - Surgical debridement completed on 04/26. Proteus isolated. She remains on intravenous Unasyn through May 12. Wound VAC . She will need outpatient follow-up in the wound care clinic buttock wound grew proteus, Bastreoides faragilis and Eggerthella (2) Wound of right lower extremity: Plan: Improving. Wound care and antibiotics as above. (3) Cellulitis: Plan: ABX and wound care as above. (total 14 days per prior discharge summary) (4) CARL (acute kidney injury): Plan: - Cr mildly elevated on admission. Resolved with IV fluids. Monitor intake and output. Serial lab studies (5) Multiple sclerosis: Plan: Continue diazepam 5-7mg PRN daily for spasms. Wheelchair bound at baseline. (6) HTN (hypertension): Plan: Med management. Stable . (7) Tinea pedis: Plan: Improving with ketoconazole therapy Plan Eventual discharge to SNF. Admission and Anticipated Discharge Date Admission Date: May 04, 2022 Subjective pt is here and improving has no new symptoms, awaiting placement , discussed gluteal decubitus and need for more supportive care at bedside we all reviewed pictures of wound Review of Systems Review of Systems: Mild distress and fatigue no headache, no visual changes no speech or swallowing issues no chest pain, pressure or palpitations no shortness of breath, cough or wheezes no abdominal pain, nausea or vomiting, diarrhea or constipation no dysuria, hematuria or frequency no focal joint pain or swelling no back pain, CVA tenderness or radicular pain Is open wounds on legs which is being cared for by wound care no focal signs of weakness or numbness or altered sensation no complaints of anxiety or depression.. Physical Exam Physical Exam: The patient appeared stable Vital signs as documented. Lungs are clear to auscultation and appear unlabored Cardiac exam, Rhythm is regular.. Soft murmur is heard Abdominal exam reveals normal bowel sounds, soft non tender, no masses Extremities are open areas seen on leg Neurologic exam is alert and oriented, no focal loss of strength or sensation Skin is with bruises Psychologically is without concerns for anxiety or depression. Results & Data Results & Data ([facility]) Vital Signs (Past 12 Hours) Vital Signs Temp Pulse Resp BP Pulse Ox O2 Del Method 05/15/22 14:00 97.5 F L 67 16 130/78 93 Room Air 05/15/22 09:00 Room Air 05/15/22 07:35 97.7 F 66 18 154/78 H 95 Room Air PG Care Time/CCT Total # of Minutes Spent Total Time Spent with Patient: Total time spent is greater than 50% in coordination of care (as documented) at patient's floor/unit and/or counseling patient: Coding Level of Care Code 17625 Subseq Hosp Care Lvl 1 Diagnoses Decubitus ulcer of sacral area L89.159 Wound of right lower extremity S81.801A Cellulitis L03.90 CARL (acute kidney injury) N17.9 Multiple sclerosis G35 HTN (hypertension) I10 Tinea pedis B35.3
[2022-05-15] MEDS: ENOXAPARIN INJ 40 MG/0.4 ML SYR SQ SCH (20:09)
[2022-05-16] MEDS: diazePAM 2 MG TABLET PO PRN ×2 (00:14→21:55)
[2022-05-16] MEDS: diazePAM 5 MG TABLET PO PRN ×2 (00:14→21:55)
[2022-05-16] MEDS: PRESERVISION AREDS 2: NON-FORMULARY PATIENT'S OWN MED PO SCH ×2 (09:10→18:01)
[2022-05-16] MEDS: CHOLECALCIFEROL 5,000 UNITS 125 MCG TAB PO SCH (09:11)
[2022-05-16] MEDS: ADVANCED PROBIOTIC 1250 MG CAPSULE PO SCH (09:11)
[2022-05-16] MEDS: KETOCONAZOLE 2% CR 15 GM TUBE EXT SCH ×2 (09:11→21:43)
[2022-05-16] MEDS: ACETAMINOPHEN 500 MG TAB PO PRN (09:12)
--- NOTE | 2022-05-16 16:35 | Hospitalist Progress Note ---
Date of Service May 16, 2022 Assessment & Plan (1) Decubitus ulcer of sacral area: Plan: - Surgical debridement completed on 04/26. Proteus isolated. She remains on intravenous Unasyn through May 12. Wound VAC . She will need outpatient follow-up in the wound care clinic buttock wound grew proteus, Bastreoides faragilis and Eggerthella no new changes or issues 05/16/22 (2) Wound of right lower extremity: Plan: Improving. Wound care and antibiotics as above. (3) Cellulitis: Plan: ABX and wound care as above. (total 14 days per prior discharge summary) (4) CARL (acute kidney injury): Plan: - Cr mildly elevated on admission. Resolved with IV fluids. Monitor intake and output. Serial lab studies (5) Multiple sclerosis: Plan: Continue diazepam 5-7mg PRN daily for spasms. Wheelchair bound at baseline. (6) HTN (hypertension): Plan: Med management. Stable . (7) Tinea pedis: Plan: Improving with ketoconazole therapy Plan Eventual discharge to SNF. Admission and Anticipated Discharge Date Admission Date: May 04, 2022 Subjective pt is here and improving has no new symptoms, awaiting placement , discussed gluteal decubitus and need for more supportive care wound vacc replaced 05/16/22 Review of Systems Review of Systems: Mild distress and fatigue no headache, no visual changes no speech or swallowing issues no chest pain, pressure or palpitations no shortness of breath, cough or wheezes no abdominal pain, nausea or vomiting, diarrhea or constipation no dysuria, hematuria or frequency no focal joint pain or swelling no back pain, CVA tenderness or radicular pain Is open wounds on legs which is being cared for by wound care no focal signs of weakness or numbness or altered sensation no complaints of anxiety or depression.. Physical Exam Physical Exam: The patient appeared stable Vital signs as documented. Lungs are clear to auscultation and appear unlabored Cardiac exam, Rhythm is regular.. Soft murmur is heard Abdominal exam reveals normal bowel sounds, soft non tender, no masses Extremities are open areas seen on leg Neurologic exam is alert and oriented, no focal loss of strength or sensation Skin is with bruises Psychologically is without concerns for anxiety or depression. Results & Data Results & Data ([facility]) Vital Signs (Past 12 Hours) Vital Signs Temp Pulse Resp BP BP Pulse Ox O2 Del Method 05/16/22 14:53 97.5 F L 69 20 119/68 96 Room Air 05/16/22 07:37 97.9 F 73 20 147/77 H 96 Room Air PG Care Time/CCT Total # of Minutes Spent Total Time Spent with Patient: Total time spent is greater than 50% in coordination of care (as documented) at patient's floor/unit and/or counseling patient: Coding Level of Care Code 17930 Subseq Hosp Care Lvl 1 Diagnoses Decubitus ulcer of sacral area L89.159 Wound of right lower extremity S81.801A Cellulitis L03.90 CARL (acute kidney injury) N17.9 Multiple sclerosis G35 HTN (hypertension) I10 Tinea pedis B35.3
[2022-05-16] MEDS: ENOXAPARIN INJ 40 MG/0.4 ML SYR SQ SCH (21:43)
[2022-05-17] MEDS: PRESERVISION AREDS 2: NON-FORMULARY PATIENT'S OWN MED PO SCH ×3 (08:40→17:52)
[2022-05-17] MEDS: ADVANCED PROBIOTIC 1250 MG CAPSULE PO SCH (08:41)
[2022-05-17] MEDS: CHOLECALCIFEROL 5,000 UNITS 125 MCG TAB PO SCH (08:41)
[2022-05-17] MEDS: KETOCONAZOLE 2% CR 15 GM TUBE EXT SCH ×2 (08:48→21:44)
--- NOTE | 2022-05-17 17:57 | Hospitalist Progress Note ---
Date of Service May 17, 2022 Assessment & Plan (1) Decubitus ulcer of sacral area: Plan: - Surgical debridement completed on 04/26. Proteus isolated. She remains on intravenous Unasyn through May 12. Wound VAC . She will need outpatient follow-up in the wound care clinic buttock wound grew proteus, Bastreoides faragilis and Eggerthella no new changes or issues 05/17/22 (2) Wound of right lower extremity: Plan: Improving. Wound care and antibiotics as above. (3) Cellulitis: Plan: ABX and wound care as above. (total 14 days per prior discharge summary) (4) CARL (acute kidney injury): Plan: - Cr mildly elevated on admission. Resolved with IV fluids. Monitor intake and output. Serial lab studies (5) Multiple sclerosis: Plan: Continue diazepam 5-7mg PRN daily for spasms. Wheelchair bound at baseline. (6) HTN (hypertension): Plan: Med management. Stable . (7) Tinea pedis: Plan: Improving with ketoconazole therapy Plan Eventual discharge to SNF. Admission and Anticipated Discharge Date Admission Date: May 04, 2022 Subjective pt is here and improving has no new symptoms, awaiting placement , discussed gluteal decubitus and need for more supportive care wound vacc replaced 05/16/22 Review of Systems Review of Systems: Mild distress and fatigue no headache, no visual changes no speech or swallowing issues no chest pain, pressure or palpitations no shortness of breath, cough or wheezes no abdominal pain, nausea or vomiting, diarrhea or constipation no dysuria, hematuria or frequency no focal joint pain or swelling no back pain, CVA tenderness or radicular pain Is open wounds on legs which is being cared for by wound care no focal signs of weakness or numbness or altered sensation no complaints of anxiety or depression.. Physical Exam Physical Exam: The patient appeared stable Vital signs as documented. Lungs are clear to auscultation and appear unlabored Cardiac exam, Rhythm is regular.. Soft murmur is heard Abdominal exam reveals normal bowel sounds, soft non tender, no masses Extremities are open areas seen on leg Neurologic exam is alert and oriented, no focal loss of strength or sensation Skin is with bruises Psychologically is without concerns for anxiety or depression. Results & Data Results & Data ([facility]) Vital Signs (Past 12 Hours) Vital Signs Temp Pulse Resp BP Pulse Ox O2 Del Method 08/30/22 16:35 98.1 F 70 18 139/79 92 Room Air 05/17/22 07:12 98.1 F 68 18 152/72 H 90 Room Air PG Care Time/CCT Total # of Minutes Spent Total Time Spent with Patient: Total time spent is greater than 50% in coordination of care (as documented) at patient's floor/unit and/or counseling patient: Coding Level of Care Code 31628 Subseq Hosp Care Lvl 1 Diagnoses Decubitus ulcer of sacral area L89.159 Wound of right lower extremity S81.801A Cellulitis L03.90 CARL (acute kidney injury) N17.9 Multiple sclerosis G35 HTN (hypertension) I10 Tinea pedis B35.3
[2022-05-17] MEDS: ENOXAPARIN INJ 40 MG/0.4 ML SYR SQ SCH (21:43)
[2022-05-17] MEDS: diazePAM 5 MG TABLET PO PRN (23:02)
[2022-05-17] MEDS: diazePAM 2 MG TABLET PO PRN (23:02)
[2022-05-18] MEDS ORDERED: CALCIUM CARBONATE 500 MG CHEWABLE TAB PO STA (00:30)
[2022-05-18] MEDS: PRESERVISION AREDS 2: NON-FORMULARY PATIENT'S OWN MED PO SCH ×2 (09:01→18:21)
[2022-05-18] MEDS: ADVANCED PROBIOTIC 1250 MG CAPSULE PO SCH (09:02)
[2022-05-18] MEDS: CHOLECALCIFEROL 5,000 UNITS 125 MCG TAB PO SCH (09:02)
[2022-05-18] MEDS: KETOCONAZOLE 2% CR 15 GM TUBE EXT SCH ×2 (09:03→21:40)
--- NOTE | 2022-05-18 13:45 | Hospitalist Progress Note ---
Date of Service May 18, 2022 Assessment & Plan (1) Decubitus ulcer of sacral area: Plan: Large L buttock wound POA - Surgical debridement completed on 04/26. Wound culture w/ growth of Proteus isolated - Placed on Vanco/Zosyn initially-->converted to Rocephin w/ Flagyl-->then Keflex + Flagyl as outpatient. Upon readmit on 05/05 put back on Unasyn until 05/12 - Wound VAC in place and cyanide pot tender on consult - She will need outpatient follow-up in the wound care clinic - Offload pressure, frequent repositioning - PT/OT --> rehab recommended, CM on consult (2) Wound of right lower extremity: Plan: - Improving. Wound care and antibiotics as above. (3) Cellulitis: Plan: - ABX and wound care as above. (total 14 days per prior discharge summary) (4) CARL (acute kidney injury): Plan: - Cr mildly elevated on admission which resolved with IVF (5) Multiple sclerosis: Plan: - Continue diazepam 5-7mg PRN daily for spasms. Wheelchair bound at baseline. - PT/OT (6) HTN (hypertension): Plan: - Stable, takes no meds (7) Tinea pedis: Plan: - Improving with ketoconazole therapy Plan D/w case management today, pt has not been willing to allow CM to send referrals to other facilities outside of the [facility], and [facility]. Plan was to expand search to other facilities, however, [facility] returned call today stating that they can take the patient on Sunday 05/20. No changes made today. No labs ordered for tomorrow. Plan d/w Dr. Brunner. Admission and Anticipated Discharge Date Admission Date: May 04, 2022 Subjective Patient seen on daily rounds this morning. She is resting in bed, offers no complaints. She just had wound care performed prior to my visit. Denies cp, dyspnea, n/v/d, f/c, headache, or gu symptoms (does have a purewick catheter in place). Review of Systems Review of Systems: All systems reviewed and are unremarkable except as noted in HPI and below. Denies fever, chills, fatigue, headache, nasal congestion, sore throat, cough, chest pain, shortness of breath, palpitations, orthopnea, PND, abdominal pain, n/v/d, constipation, dysuria, hematuria, frequency, back pain, joint pain or swelling, easy bruising or bleeding, skin lesions or rashes. Physical Exam Physical Exam: GENERAL: 77 yo Well-developed, well-nourished elderly WF. NAD. LUNGS: Clear to auscultation bilaterally. No W/R/R. CARDIOVASCULAR: Regular rate and rhythm. ABDOMEN: Soft, non-tender and non-distended. BS normoactive x 4 quad. EXTREMITIES: No edema. Non-tender. Peripheral pulses +2/4. NEUROLOGIC: A&O x3. PSYCHIATRIC: Cooperative. Appropriate mood and affect. SKIN: multiple wounds Results & Data Results & Data ([facility]) Vital Signs (Past 12 Hours) Vital Signs Temp Pulse Resp BP Pulse Ox O2 Del Method 05/18/22 07:17 36.6 C 68 18 158/80 H 93 Room Air PG Care Time/CCT Total # of Minutes Spent Total Time Spent with Patient: Total time spent is greater than 50% in coordination of care (as documented) at patient's floor/unit and/or counseling patient: Coding Level of Care Code 37544 Subseq Hosp Care Lvl 1 Diagnoses Decubitus ulcer of sacral area L89.159 Wound of right lower extremity S81.801A Cellulitis L03.90 CARL (acute kidney injury) N17.9 Multiple sclerosis G35 HTN (hypertension) I10 Tinea pedis B35.3
[2022-05-18] MEDS: ENOXAPARIN INJ 40 MG/0.4 ML SYR SQ SCH (21:40)
[2022-05-18] MEDS: diazePAM 2 MG TABLET PO PRN (23:33)
[2022-05-18] MEDS: diazePAM 5 MG TABLET PO PRN (23:33)
[2022-05-19] MEDS: PRESERVISION AREDS 2: NON-FORMULARY PATIENT'S OWN MED PO SCH ×2 (09:05→16:09)
[2022-05-19] MEDS: ADVANCED PROBIOTIC 1250 MG CAPSULE PO SCH (09:06)
[2022-05-19] MEDS: CHOLECALCIFEROL 5,000 UNITS 125 MCG TAB PO SCH (09:06)
[2022-05-19] MEDS: KETOCONAZOLE 2% CR 15 GM TUBE EXT SCH ×2 (09:07→21:30)
--- NOTE | 2022-05-19 13:59 | Hospitalist Progress Note ---
Date of Service May 19, 2022 Assessment & Plan (1) Decubitus ulcer of sacral area: Plan: Large L buttock wound POA - Surgical debridement completed on 04/26. Wound culture w/ growth of Proteus isolated - Placed on Vanco/Zosyn initially-->converted to Rocephin w/ Flagyl-->then Keflex + Flagyl as outpatient. Upon readmit on 05/05 put back on Unasyn until 05/12 - Wound VAC in place and knife grinder on consult - She will need outpatient follow-up in the wound care clinic - Offload pressure, frequent repositioning - PT/OT --> rehab recommended, CM on consult (2) Wound of right lower extremity: Plan: - Improving. Wound care and antibiotics as above. (3) Cellulitis: Plan: - ABX and wound care as above. (total 14 days per prior discharge summary) (4) CARL (acute kidney injury): Plan: - Cr mildly elevated on admission which resolved with IVF (5) Multiple sclerosis: Plan: - Continue diazepam 5-7mg PRN daily for spasms. Wheelchair bound at baseline. - PT/OT (6) HTN (hypertension): Plan: - Stable, takes no meds (7) Tinea pedis: Plan: - Improving with ketoconazole therapy Plan Pt medically stable for d/c when [facility] has available bed which I have been told is tomorrow 05/20. No changes made today. D/w attending, Dr. Forbes. Admission and Anticipated Discharge Date Admission Date: May 04, 2022 Subjective Patient seen on daily rounds this morning. She is resting in bed, offers no complaints. For d/c to [facility] on 05/20. Review of Systems Review of Systems: All systems reviewed and are unremarkable except as noted in HPI and below. Denies fever, chills, fatigue, headache, nasal congestion, sore throat, cough, chest pain, shortness of breath, palpitations, orthopnea, PND, abdominal pain, n/v/d, constipation, dysuria, hematuria, frequency, back pain, joint pain or swelling, easy bruising or bleeding. Physical Exam Physical Exam: GENERAL: 77 yo Well-developed, well-nourished elderly WF. NAD. LUNGS: Clear to auscultation bilaterally. No W/R/R. CARDIOVASCULAR: Regular rate and rhythm. ABDOMEN: Soft, non-tender and non-distended. BS normoactive x 4 quad. EXTREMITIES: No edema. Non-tender. Peripheral pulses +2/4. NEUROLOGIC: A&O x3. PSYCHIATRIC: Cooperative. Appropriate mood and affect. SKIN: multiple wounds Results & Data Results & Data ([facility]) Vital Signs (Past 12 Hours) Vital Signs Temp Pulse Resp BP Pulse Ox O2 Del Method 05/19/22 07:31 36.3 C L 60 16 135/62 94 Room Air PG Care Time/CCT Total # of Minutes Spent Total Time Spent with Patient: Total time spent is greater than 50% in coordination of care (as documented) at patient's floor/unit and/or counseling patient: Coding Level of Care Code 64151 Subseq Hosp Care Lvl 1 Diagnoses Decubitus ulcer of sacral area L89.159 Wound of right lower extremity S81.801A Cellulitis L03.90 CARL (acute kidney injury) N17.9 Multiple sclerosis G35 HTN (hypertension) I10 Tinea pedis B35.3
[2022-05-19] MEDS: ENOXAPARIN INJ 40 MG/0.4 ML SYR SQ SCH (21:31)
[2022-05-19] MEDS: diazePAM 5 MG TABLET PO PRN (23:33)
[2022-05-19] MEDS: diazePAM 2 MG TABLET PO PRN (23:33)
[2022-05-20] MEDS: PRESERVISION AREDS 2: NON-FORMULARY PATIENT'S OWN MED PO SCH (08:33)
[2022-05-20] MEDS: ADVANCED PROBIOTIC 1250 MG CAPSULE PO SCH (08:33)
[2022-05-20] MEDS: CHOLECALCIFEROL 5,000 UNITS 125 MCG TAB PO SCH (08:34)
[2022-05-20] MEDS: KETOCONAZOLE 2% CR 15 GM TUBE EXT SCH (08:35)
--- NOTE | 2022-05-20 11:21 | Discharge Summary ---
Date of Service May 20, 2022 Admission HPI Per Admitting Provider Sia Grissom is a 77-year-old female the past medical history significant for MS and recent hospitalization for sacral decubitus ulcer and SBO from 04/23 - 05/02 who presents today with worsening sacral and right lower extremity wounds. Patient was originally admitted on 04/23 for the wound and given the extent of her sacral wound, she underwent surgical debridement on 04/26, wound cultures growing Proteus mirabilis. She was discharged just 2 days ago on 05/04 with a wound VAC in place and a prescription for Keflex 500 mg 3 times daily and Flagyl 500 mg 3 times daily, both with 10 days left. She has been taking these as prescribed, last dose taken this morning. [facility] of [facility] was called by the ED on initial presentation on 04/23, they had not discouraged return home, as long as home health will be able to see patient. Today was the first day home health saw patient, apparently on their assessment her wound VAC and not been working in her wound appeared infected, therefore they recommended she present to the ED for further evaluation. Patient tells me that yesterday her wound VAC broke when she slung it over a chair. She is without complaint, no fever/chills, weakness, myalgias, chest pain, shortness breath, abdominal pain, nausea, vomiting. She is not having any pain outside of her sacral wound. Today, she presents with a BP of 155/78, otherwise vital signs within normal limits. Labs significant for WBC of 13.61 with a left shift, BUN 29 and creatinine 1.29, baseline 0.60.7. Labs otherwise wnl. Principal Diagnosis 1. Decubitus ulcer of sacral area (POA) 2. Wound of RLE (POA) 3. Cellulitis-resolved 4. CARL-resolved Discharge Exam GENERAL: 77 yo Well-developed, well-nourished elderly WF. NAD. LUNGS: Clear to auscultation bilaterally. No W/R/R. CARDIOVASCULAR: Regular rate and rhythm. ABDOMEN: Soft, non-tender and non-distended. BS normoactive x 4 quad. EXTREMITIES: No edema. Non-tender. Peripheral pulses +2/4. NEUROLOGIC: A&O x3. PSYCHIATRIC: Cooperative. Appropriate mood and affect. SKIN: multiple wounds dressed Discharge Data Allergies Allergy/AdvReac Type Severity Reaction Status Date / Time mushroom Allergy Severe Swelling Verified 04/26/22 09:58 of Lip/Tongue/Throat Sulfa (Sulfonamide Allergy Severe ALL OVER Verified 04/26/22 09:58 Antibiotics) BODY SWELLING naproxen Allergy Unknown Unknown Verified 04/26/22 09:58 Consultations 05/04/22 16:16 ED Decision to Admit Stat Hospital Course (1) Decubitus ulcer of sacral area: Large L buttock wound POA - Surgical debridement completed on 04/26. Wound culture w/ growth of Proteus isolated - Placed on Vanco/Zosyn initially-->converted to Rocephin w/ Flagyl-->then Keflex + Flagyl as outpatient. Upon readmit on 05/05 put back on Unasyn until 05/12 - Wound VAC in place and creative services director on consult - She will need outpatient follow-up in the wound care clinic - Offload pressure, frequent repositioning - PT/OT --> rehab recommended, CM on consult - Bed available at [facility] (2) Wound of right lower extremity: - Improving. Wound care and antibiotics as above. (3) Cellulitis: - ABX and wound care as above. (total 14 days per prior discharge summary) (4) CARL (acute kidney injury): - Cr mildly elevated on admission which resolved with IVF (5) Multiple sclerosis: - Continue diazepam 5-7mg PRN daily for spasms. Wheelchair bound at baseline. - PT/OT (6) HTN (hypertension): - Stable, takes no meds (7) Tinea pedis: - Improving with ketoconazole therapy Plan Patient is medically and hemodynamically stable for discharge to acute rehab ([facility]) today. Advised f/u with pcp and wound care clinic as outlined. Plan d/w Dr. Truong who is in agreement. Total Time Total Time Spent Total Time Spent (In Minutes): >30 minutes Discharge Plan Discharge Items Patient Disposition: Transfer [facility] Reason For Visit: SACRAL AND LLE WOUNDS Discharge Diagnosis: skin wounds Activity: Resume your previous activity Non-emergency contact: Primary Care Provider Call non-emergency contact if: you have any medication questions and your symptoms worsen Follow-up/Referrals: Alf Velázquez MD [Primary Care Provider] - Diet: Regular Addtl Attending Provider Instructions: You were hospitalized due to chronic skin wounds and infection. You completed a course of antibiotics for bacteria present in the wound. Wound care was carried out and you were placed back on a wound vac. You were felt to require physical and occupational rehabilitation and a bed has opened up at [facility] which is were you will be discharged to. They will continue to do wound care with you and change your wound vac. All wound care instructions should be followed as outlined by creative services director. Follow up with your healthcare provider upon discharge from the rehab. You have a follow up scheduled with the wound clinic on Pending Studies at Discharge: No Stand-Alone Forms: My [facility] Skilled Items Patient informed of condition?: Yes DNR: No Discharge Level of Care: Skilled Communicable Disease: No Discharge Prognosis: Stable Lines: None Urinary Catheter: No Medications and DC Order Prescriptions: Continued diazepam 5 mg Tablet 5 mg PO DAILY Rx Instructions: TOTAL DOSE 7 MG--TAKES WITH 2 MG TAB. diazepam 2 mg tablet 2 mg PO DAILY Rx Instructions: TOTAL DOSE 7 MG--TAKES WITH 5 MG TAB. Probiotic 10 billion cell Capsule 20,000 mmu cells PO DAILY Rx Instructions: TAKES 2 CAPS DAILY ketoconazole 2 % Cream 1 applic EXT DAILY PRN (Reason: Tinea Pedis) 35 Days Qty: 1 1RF PreserVision AREDS-2 250-90-40-1 mg Capsule 1 tab PO BID Discontinued cephalexin 500 mg Capsule 500 mg PO TID 10 Days Qty: 30 0RF metronidazole 500 mg tablet 500 mg PO TID 10 Days Qty: 30 0RF Discharge Orders: Discharge Order (Routine); Ordered 05/20/22 Ordered By: Clari Danielle Admission Data Admit Date/Time: 05/04/22 16:20 Attending Provider: Nilo Truong Admit Provider: Wan Dinh Primary Care Provider: Alf Velázquez Other Providers: Wan Dinh ; [place] Coding Level of Care Code D/C DAY MANAGEMENT >30 MINS Diagnoses Decubitus ulcer of sacral area L89.159 Wound of right lower extremity S81.801A Cellulitis L03.90 CARL (acute kidney injury) N17.9 Multiple sclerosis G35 HTN (hypertension) I10 Tinea pedis B35.3
== END 2022-05-20 14:32 | DRG 593 ==
LOC: ED 14:10 → SUATTDRO 16:20 → EDINP 16:20 → 3W 19:39